=== PATIENT | female | born 1960 | race Caucasian/White ===

== ENCOUNTER → 2017-03-25 13:13 | Emergency (ER) | payer BC ==
[2017-03-25 13:23] VITALS: BP 125/73
--- NOTE | 2017-03-25 14:26 | ED ---
Abdominal Pain/Female - HPI Summary HPI Summary: 56 female presents to ED as she was instructed by Dr Villarreal. Patient states she has had abdominal pain/tightness after having surgery with a drain placed. She feels her drain is plugged, as it was once before in the past and her abdomen is full of fluid. Patient will be evaluated by Dr Villarreal. No nausea, vomiting, fever/chills or any other complaints at this time. - History of Current Complaint Chief Complaint: EDGeneral Stated Complaint: DRANGING TUBE PAIN Time Seen by Provider: 03/25/17 13:58 Hx Obtained From: Patient, Other: - Dr Villarreal Onset/Duration: Sudden Onset, Lasting Days Timing: Constant Severity Initially: Moderate Severity Currently: Severe Pain Intensity: 5 Pain Scale Used: 0-10 Numeric Location: Diffuse - lower abdomen Radiates: No Aggravating Factor(s): Nothing Alleviating Factor(s): Nothing Allergies/Adverse Reactions: Allergies Allergy/AdvReac Type Severity Reaction Status Date / Time Adhesive Tape [Paper Tape] Allergy Mild Itching Verified 03/06/17 07:03 Penicillins Allergy Unknown Verified 01/06/17 11:47 Reaction Details Tramadol Allergy Unknown Verified 03/10/17 16:43 Reaction Details Hydrocodone AdvReac See Comment Verified 01/06/17 11:47 PMH/Surg Hx/FS Hx/Imm Hx Endocrine/Hematology History: Denies: Hx Diabetes, Hx Systemic Lupus Erythematosus Cardiovascular History: Denies: Hx Congestive Heart Failure, Hx Hypertension, Hx Pacemaker/ICD Respiratory History: Denies: Hx Asthma GI History: Reports: Hx Diverticulosis, Other GI Disorders - colon ca History: Denies: Hx Dialysis, Hx Renal Disease Musculoskeletal History: Denies: Hx Arthritis, Hx Rheumatoid Arthritis Sensory History: Reports: Hx Contacts or Glasses - glasses Denies: Hx Hearing Aid Opthamlomology History: Reports: Hx Contacts or Glasses - glasses Neurological History: Reports: Hx Headaches - IN THE PAST Psychiatric History: Denies: Hx Panic Disorder - Cancer History Cancer Type, Location and Year: 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 Colon CA removal (02/11/17) Hx Anesthesia Reactions: No - Immunization History Immunizations Up to Date: Yes Infectious Disease History: No Infectious Disease History: Denies: Traveled Outside the [place] in Last 30 Days - Family History Known Family History: Positive: None - Social History Alcohol Use: None Substance Use Type: Reports: None Smoking Status (MU): Never Smoked Tobacco Review of Systems Constitutional: Negative Cardiovascular: Negative Respiratory: Negative Positive: Abdominal Pain - tightness All Other Systems Reviewed And Are Negative: Yes Physical Exam Triage Information Reviewed: Yes Vital Signs On Initial Exam: Initial Vitals Temp Pulse Resp BP Pulse Ox 99.4 F 92 22 125/73 100 03/25/17 13:20 03/25/17 13:20 03/25/17 13:20 03/25/17 13:20 03/25/17 13:20 Vital Signs Reviewed: Yes Appearance: Positive: Well-Appearing, Well-Nourished, Pain Distress - moderate, uncomfortable Skin: Positive: Warm, Skin Color Reflects Adequate Perfusion, Dry. Negative: Cold, Numb, Cyanosis @ Eyes: Positive: Conjunctiva Clear ENT: Positive: Hearing grossly normal Neck: Positive: Supple Respiratory/Lung Sounds: Positive: Clear to Auscultation, Breath Sounds Present. Negative: Rales, Rhonchi, Wheezes Cardiovascular: Positive: Normal, RRR, Pulses are Symmetrical in both Upper and Lower Extremities. Negative: Murmur, Rub Abdomen Description: Positive: Distended, Guarding, Other: - tender on palpation , lower abdomen, colostomy bag presents along with drain LLQ, no signs of infection present. Negative: Bruit, CVA Tenderness (R), CVA Tenderness (L) Bowel Sounds: Positive: Present Musculoskeletal: Positive: Normal, Strength/ROM Intact Neurological: Positive: Normal, Sensory/Motor Intact, Alert, Oriented to Person Place, Time - Anastasiia Coma Scale Coma Scale Total: 15 Diagnostics - Vital Signs Vital Signs Temp Pulse Resp BP Pulse Ox 03/25/17 13:20 99.4 F 92 22 125/73 100 - Laboratory Lab Statement: Any lab studies that have been ordered have been reviewed, and results considered in the medical decision making process. - Ultrasound No standard instances Ultrasound Interpretation: No Acute Changes - : There is a partially septated fluid collection in the abdominal wall measuring 22.5 cm in greatest dimension. This appears to correspond to the abdominal wall fluid collection seen on the March 10, 2017 CT examination. The drain does not appear to communicate directly with this fluid collection. Ultrasound Interpretation Completed By: Radiologist Abdominal Pain Fem Course/Dx - Course Course Of Treatment: Dr Villarreal evaluted and did procedure to remove drain and place a new one while in ED. Also obtained US. informed by Dr Villarreal that the excess fluid noted on US will be drained during a procedural appointment with Dr Rodgers tomorrow at 9am. No further action required. Patient informed and understands. - Diagnoses Differential Diagnosis: Positive: Other - post op complication, ileus, fluid build up Provider Diagnoses: Post-operative complication, Open abdominal incision with drainage - Provider Notifications Discussed Care Of Patient With: Dr Villarreal Instructed by Provider To: MD Will See In ED Discharge - Discharge Plan Condition: Stable Disposition: HOME Referrals: Genevieve Villarreal MD [Medical Doctor] - Herman Cortes JR, PA [Primary Care Provider] - Addy Rodgers MD [Medical Doctor] - Additional Instructions: Please follow up with Dr Rodgers tomorrow morning between 830-900am. Any new or worsening symptoms please seek medical attention.
--- NOTE | 2017-03-25 15:07 | CONSULT ---
Consult Consult: Surgery Consult Asked by ER to evaluate pt. with abdominal pain and drain for known seroma. Ms. Hunt is a 56 y.o. female who is s/p bowel resection for rectal cancer, managed at outside instititution. She initially presented a couple of weeks ago with abdominal pain and swelling and was found to have a hernia and seroma in the peristomal location. She ultimately had a JESSI drain placed to drain the seroma. It was draining a moderate amount until 2 days ago when it only drained scant material. She also feels that her abdominal pain has increased since then. She says this abdominal pain is just like the pain she had before the JESSI was placed. She denies fever and she has been having normal BMs through the stoma. Vital Signs 03/25/17 13:20 Temperature 99.4 F Pulse Rate 92 Respiratory 22 Rate Blood Pressure 125/73 (mmHg) O2 Sat by Pulse 100 Oximetry Exam shows a JESSI that has serous fluid and proteinaceous debris in the tubing. The abdomen is protruberant. There are good BS, the abd is soft, and mildly tender around the drain. I recommended replacing the JESSI drain,on the left side of the abdomen, which appears to be clogged. This was done under sterile conditions using 1% Lidocaine. The old JESSI was removed and a new one trimmed to ~5 cm was placed in the tract. THere was minimal drainage of additional fluid. She tolerated the procedure well and there was minimal EBL. A/P: F/u sono to be done to assess fluid collection. CLFoster
--- NOTE | 2017-03-25 15:59 | RAD ---
INDICATION: Evaluate abdominal wall seroma. COMPARISON: CT abdomen pelvis dated March 10, 2017 that shows both peritoneal ascites and a left of midline abdominal wall hernia allowing peritoneal fat and loops of bowel to herniate into the subcutaneous fat adjacent to a large abdominal wall fluid collection. TECHNIQUE: Real time ultrasound images of the left abdominal wall were acquired in franco scale and Doppler color flow. FINDINGS: Sonographic imaging overlying the left abdominal wall shows a partially loculated fluid collection measuring 19 x 14 x 22.5 cm. IMPRESSION: There is a partially septated fluid collection in the abdominal wall measuring 22.5 cm in greatest dimension. This appears to correspond to the abdominal wall fluid collection seen on the March 10, 2017 CT examination. The drain does not appear to communicate directly with this fluid collection.
== END | disposition home or self-care (01) ==
LOC: ED 13:13
DX: T81.89XA Other complications of procedures, not elsewhere classified, initial encounter (principal); Y83.9 Surgical procedure, unspecified as the cause of abnormal reaction of the patient, or of later complication, without mention of misadventure at the time of the procedure; Y92.9 Unspecified place or not applicable; Z93.3 Colostomy status; Z85.048 Personal history of other malignant neoplasm of rectum, rectosigmoid junction, and anus; T14.8XXA Other injury of unspecified body region, initial encounter; Z85.038 Personal history of other malignant neoplasm of large intestine
CPT/HCPCS: 76705; 99282

== ENCOUNTER 2017-04-18 02:11 | Inpatient (IN) | payer BC ==
[2017-04-18] MEDS ORDERED: Ondansetron INJ* 2 MG/ML VIAL IV ONE (02:42)
[2017-04-18] MEDS ORDERED: HYDROmorphone INJ* 2 MG/ML CARPUJECT SYRINGE IV SLOW PU ONE ×2 (02:42→04:59)
[2017-04-18] MEDS ORDERED: Acetaminophen TAB* 325 MG PO ONE (02:44)
[2017-04-18] MEDS ORDERED: Levofloxacin 750 MG IVPREMIX(* 750 MG/150 ML BAG IVPB ONE (02:47)
[2017-04-18 03:13] LABS: ABS Basophils 0.1 10^3/ul (0-0.2); ABS Eosinophils 0 10^3/ul (0-0.6); ABS Lymphocytes 0.6 10^3/ul (1.0-4.8); ABS Monocytes 0.9 10^3/ul (0-0.8); ABS Neutrophils 9.8 10^3/ul (1.5-7.7); ABS Nucleated RBC 0 10^3/ul; Eosinophil % 0.2 % (0-6); Hematocrit 30 % (35-47); Hemoglobin 9.9 g/dl (12.0-16.0); Lymphocyte % 5.7 % (25-47); Mean Corpuscular HGB Conc 33 g/dl (31-36); Mean Corpuscular Hemoglobin 25 pg (27-31); Mean Corpuscular Volume 76 fL (80-97); Mean Platelet Volume 6 um3 (7.4-10.4); Nucleated Red Blood Cells % 0; Platelet Count 495 10^3/ul (150-450); Red Blood Count 3.93 10^6/ul (4.0-5.4); Red Cell Distribution Width 17 % (10.5-15); White Blood Count 11.5 10^3/ul (3.5-10.8)
[2017-04-18] MEDS ORDERED: metroNIDAZOLE IV 500 MG/100ML* 500 MG/100 ML BAG IVPB ONE (03:20)
[2017-04-18] MEDS ORDERED: NS 0.9% 1000 ML*IV.FLUID IV ONE (03:20)
[2017-04-18 03:22] LABS: INR 1.06 (0.77-1.02)
[2017-04-18] MEDS: NS 0.9% 1000 ML* 1,000 ML IV ONE ×2 (03:26→06:55)
[2017-04-18] MEDS ORDERED: Iodixanol* (CONTRAST) 320 MG/ML 100 ML SDV IV ONE (03:30)
[2017-04-18] MEDS ORDERED: Vancomycin(*) 1,000 MG VIAL IVPB SCH (04:00)
[2017-04-18] MEDS ORDERED: Vancomycin(*) 1,250 MG IV x ONCE IVPB ONE ×2 (05:00)
[2017-04-18 05:38] LABS: Urine Appearance Cloudy; Urine Blood 2+ (Negative); Urine Color Straw; Urine Ketones Negative (Negative); Urine Protein 2+(100 mg/dL) (Negative); Urine Specific Gravity 1.003 (1.010-1.030); Urine Urobilinogen Negative (Negative)
[2017-04-18] MEDS ORDERED: NS 0.9% 250 ML* 250 ML ONE (06:36)
--- NOTE | 2017-04-18 06:53 | ED ---
José Miguel Batres Tiffany, scribed for Sukhdeep Huber on 04/18/17 at 0238 . Back Pain - HPI Summary HPI Summary: This patient is a 56 year old F presenting to [facility] accompanied by with a chief complaint of back pain since two days ago. The patient rates the pain 7/ 10 in severity. Symptoms aggravated by nothing. Symptoms alleviated by nothing. Patient reports abdominal pain. Pt stated that she had back surgery (took out part of her tailbone) on 2016. Pt also had abdominal surgery from cancer and also still has drainage tubes at this time. Pt stated that she took dilaudid 2mg at 0000. - History of Current Complaint Chief Complaint: EDBackInjuryPain Stated Complaint: BACK PAIN FOLLOWING SURGERY Time Seen by Provider: 04/18/17 02:30 Pain Intensity: 7 - Allergies/Home Medications Allergies/Adverse Reactions: Allergies Allergy/AdvReac Type Severity Reaction Status Date / Time Adhesive Tape [Paper Tape] Allergy Mild Itching Verified 03/06/17 07:03 Penicillins Allergy Unknown Verified 01/06/17 11:47 Reaction Details Tramadol Allergy Unknown Verified 03/10/17 16:43 Reaction Details Hydrocodone AdvReac See Comment Verified 01/06/17 11:47 PMH/Surg Hx/FS Hx/Imm Hx Previously Healthy: No Endocrine/Hematology History: Denies: Hx Diabetes, Hx Systemic Lupus Erythematosus Cardiovascular History: Denies: Hx Congestive Heart Failure, Hx Hypertension, Hx Pacemaker/ICD Respiratory History: Denies: Hx Asthma GI History: Reports: Hx Diverticulosis, Other GI Disorders - colon ca History: Denies: Hx Dialysis, Hx Renal Disease Musculoskeletal History: Denies: Hx Arthritis, Hx Rheumatoid Arthritis Sensory History: Reports: Hx Contacts or Glasses - glasses Denies: Hx Hearing Aid Opthamlomology History: Reports: Hx Contacts or Glasses - glasses Neurological History: Reports: Hx Headaches - IN THE PAST Psychiatric History: Denies: Hx Panic Disorder - Cancer History Cancer Type, Location and Year: 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 Colon CA removal (02/11/17) Hx Anesthesia Reactions: No Infectious Disease History: No Infectious Disease History: Denies: Traveled Outside the [place] in Last 30 Days - Family History Known Family History: Positive: None - Patient reports none - Social History Alcohol Use: None Hx Substance Use: No Substance Use Type: Reports: None Hx Tobacco Use: No Smoking Status (MU): Never Smoked Tobacco Review of Systems Positive: Abdominal Pain Positive: Other - Back pain All Other Systems Reviewed And Are Negative: Yes Physical Exam - Summary Physical Exam Summary: Appearance: Mild distress with pain Skin: warm, dry, reflects adequate perfusion Head/face: normal Eyes: EOMI, LYNETTE ENT: normal Neck: supple, non-tender Respiratory: CTA, breath sounds present Cardiovascular: RRR, pulses symmetrical Abdomen: colostomy bag on left side, pelvic drain on right side, diffuse tenderness of abdomen Bowel: present Musculoskeletal: normal, strength/ROM intact Neuro: normal, sensory motor intact, A&Ox3 Triage Information Reviewed: Yes Vital Signs On Initial Exam: Initial Vitals Temp Pulse Resp BP Pulse Ox 100.2 F 101 22 120/69 100 04/18/17 02:16 04/18/17 02:16 04/18/17 02:16 04/18/17 02:16 04/18/17 02:16 Vital Signs Reviewed: Yes - Burna Coma Scale Coma Scale Total: 15 Diagnostics - Vital Signs Vital Signs Temp Pulse Resp BP Pulse Ox 04/18/17 02:16 100.2 F 101 22 120/69 100 - Laboratory Result Diagrams: 04/18/17 02:49 04/18/17 02:49 Lab Statement: Any lab studies that have been ordered have been reviewed, and results considered in the medical decision making process. - Radiology CXR Radiology Interpretation Completed By: ED Physician - CXR is negative Back Pain Course/Dx - Course Course Of Treatment: This patient is a 56 year old F presenting to [facility] accompanied by with a chief complaint of back pain since two days ago. CXR is, per ED physician, negative. Bloodwork/UA obtained. In the ED course the patient was given Tylenol, Dilaudid, Levaquin, and Zofran. Patient is signed out at shift change, awaiting CT Abd/Pel results. - Diagnoses Provider Diagnoses: Abdominal pain Discharge - Discharge Plan Condition: Fair Disposition: OTHER Discharge Disposition Comment: Patient is signed out at shift change, awaiting CT Abd/Pel results Referrals: Herman Cortes JR PA [Primary Care Provider] - The documentation as recorded by the José Miguel lepe Tiffany accurately reflects the service I personally performed and the decisions made by , Sukhdeep Huber.
--- NOTE | 2017-04-18 08:01 | RAD ---
HISTORY: Fever COMPARISONS: None relevant available at the time of dictation VIEWS: 1: frontal portable view of the chest at 3:12 AM FINDINGS: LINES AND TUBES: None. CARDIOMEDIASTINAL SILHOUETTE: The cardiomediastinal silhouette is normal for portable technique. PLEURA: The costophrenic angles are sharp. No pleural abnormalities are noted. LUNG PARENCHYMA: The lungs are clear. ABDOMEN: The upper abdomen is clear. There is no subphrenic gas. BONES AND SOFT TISSUES: No bone or soft tissue abnormalities are noted. IMPRESSION: NO ACTIVE CARDIOPULMONARY DISEASE.
[2017-04-18] MEDS ORDERED: NS 0.9% 1000 ML* 1,000 ML IV ONE (08:37)
--- NOTE | 2017-04-18 08:49 | RAD ---
CLINICAL HISTORY: Back pain following surgery to remove a portion of the sacrum. Surgical history includes colectomy with colostomy creation for rectal cancer. Patient is recently status post peritoneal drain placement. COMPARISON: Most recent CT of the abdomen and pelvis is dated March 29, 2017 TECHNIQUE: Contrast enhanced CT examination of the abdomen and pelvis from the lung bases through the initial tuberosities. The patient received 96 mL Visipaque 320 intravenously prior to imaging.The patient received oral contrast as well prior to imaging. FINDINGS: VISUALIZED LUNG BASES: The visualized lung bases are grossly clear. There is no pleural effusion. ABDOMEN AND PELVIS: There is a subcentimeter hypoattenuating focus in the left lobe of the liver unchanged from the prior CT examination. A fluid density cyst is noted in the right lobe of the liver. There are otherwise no suspicious lesions identified in the liver. The spleen, pancreas and adrenal glands are grossly normal in appearance. There is hyperdense material in the dependent portion of the gallbladder. The gallbladder is otherwise normal size without definite pericholecystic inflammatory change. The left kidney is normal in appearance without focal mass, calcification or signs of hydronephrosis. There is mild fullness of the right renal pelvis relative to the left. This is similar to prior CT imaging. The urinary bladder measures 10.8 x 12.3 x 14 cm yielding an approximate volume of 1.5 L. The oral contrast as progressed as far as the transverse colon. The patient is status post distal colectomy. There is no pathologic dilatation of the small or remaining large bowel. At the left lower quadrant colostomy there is an abdominal wall defect measuring approximately 5.5 cm in greatest axial dimension allowing small and large bowel to herniate into the subcutaneous fat. There is no associated pathologic dilatation of the bowel or definite inflammatory change. Stool is seen up to the level of the ostomy. The patient is status post percutaneous drain placement entering the peritoneum at the right lower quadrant and traversing obliquely in the axial plane from the right lower quadrant to terminate in the posterior portion of the left lower quadrant. The previously identified 2 large cystic fluid collections in the anterior peritoneal cavity have resolved. At the right of midline there is a persistent presacral fluid collection measuring 6.2 x 7.5 cm in the axial plane and approximately 7.2 cm and greatest cephalocaudal dimension. There has been no substantial change when compared to the previous CT examinations of this presacral fluid collection. There is infiltration of the peritoneal fat surrounding the cystic collection and to a lesser extent seen in the left lower quadrant. There is no gross retroperitoneal or mesenteric lymphadenopathy. The pelvic viscera is normal in appearance. The abdominal aorta and iliac arteries are normal in course and diameter. At the L1 vertebral body there is hyperattenuating material filling the medullary cavity. Multilevel degenerative changes include loss of intervertebral disc height with vacuum disc phenomenon at L5/S1. IMPRESSION: 1. There has been interval resolution of the 2 large anterior peritoneal fluid collections in the presence of a percutaneous pigtail drain. 2. There is a right of midline presacral fluid collection measuring 7.5 cm in greatest dimension unchanged from prior CT examinations and therefore unlikely to communicate with the previously drained fluid collections. 3. Extensive chronic, degenerative and postsurgical changes described in the body the report not substantially changed when compared to prior CT examinations.
[2017-04-18] MEDS ORDERED: Acetaminophen TAB* 325 MG PO PRN (11:07)
[2017-04-18] MEDS ORDERED: Ondansetron TAB* 4 MG PO PRN (11:08)
[2017-04-18] MEDS ORDERED: Prochlorperazine TAB* 10 MG PO PRN (11:08)
[2017-04-18] MEDS ORDERED: oxyCODONE/Acetamin 5/325 MG* TAB PO PRN (11:11)
[2017-04-18] MEDS ORDERED: HYDROmorphone TAB* 2 MG ONE (13:32)
[2017-04-18] MEDS: HYDROmorphone TAB* 2 MG PO PRN ×3 (13:33→23:17)
[2017-04-18] MEDS: NS 0.9% 1000 ML* 1,000 ML IV SCH (13:34)
[2017-04-18] MEDS: Enoxaparin(*) 40 MG/0.4 ML SYR SUBCUT SCH (13:37)
[2017-04-18] MEDS: Ibuprofen TAB* 600 MG PO PRN (15:25)
--- NOTE | 2017-04-18 18:19 | ED ---
Nelson Batres Angela, scribed for Jesus Spencer MD on 04/18/17 at 0813 . Progress - Progress Note Progress Note: This pt was signed out by Dr. Huber, pending disposition, awaiting CT abdomen/ pelvis. Pt is a 56 y/o female presenting to [facility] c/o back pain since two days ago. Pt reports she had back surgery (took out part of her tailbone) on 02/11/2017. Pt will be admitted to Dr. Zee in stable condition. - Results/Orders Results/Orders: CT abdomen/pelvis, as read per radioloigst: IMPRESSION: 1. There has been interval resolution of the 2 large anterior peritoneal fluid collections in the presence of a percutaneous pigtail drain. 2. There is a right of midline presacral fluid collection measuring 7.5 cm in greatest dimension unchanged from prior CT examinations and therefore unlikely to communicate with the previously drained fluid collections. 3. Extensive chronic degenerative and postsurgical changes described in the body the report not substantially changed when compared to prior CT examinations. Dr. Spencer has reviewed this radiology report. Course/Dx - Diagnoses Provider Diagnoses: Abdominal pain - Provider Notifications Discussed Care Of Patient With: Jasper Zee Time Discussed With Above Provider: 09:30 Instructed by Provider To: Other - I discussed pt care with Dr. Zee, who has agreed to admit the pt. The documentation as recorded by the Nelson lepe Angela accurately reflects the service I personally performed and the decisions made by Tj rudolph Richard L, MD.
[2017-04-18] MEDS: LORazepam TAB(*) 0.5 MG PO SCH (20:58)
[2017-04-19] MEDS ORDERED: Levofloxacin 500 MG IVPREMIX(* 500 MG/100 ML BAG IVPB SCH (03:00)
[2017-04-19] MEDS: NS 0.9% 1000 ML* 1,000 ML IV SCH ×2 (03:07→17:18)
[2017-04-19] MEDS: HYDROmorphone TAB* 2 MG PO PRN ×3 (07:51→17:13)
[2017-04-19] MEDS ORDERED: Influenza VAC *QUAD* 2017-18* 0.5 ML SYRINGE IM ONE (09:00)
[2017-04-19] MEDS: Ibuprofen TAB* 600 MG PO PRN (09:15)
[2017-04-19] MEDS: LORazepam TAB(*) 0.5 MG PO SCH (09:16)
[2017-04-19] MEDS: Enoxaparin(*) 40 MG/0.4 ML SYR SUBCUT SCH (12:14)
[2017-04-19 15:23] VITALS: BP 104/53
--- NOTE | 2017-05-15 05:12 | DS ---
DISCHARGE SUMMARY: DATE OF ADMISSION: 04/18/17 DATE OF DISCHARGE: 04/19/17 HOSPITAL COURSE: Cyndie Gonzáles is a 56-year-old female with a history of rectal carcinoma. She has had a recent recurrence of rectal carcinoma and was status post salvage surgery with multiple compli cations including multiple percutaneous ultrasound-guided drains for seromas. She presented to the [facility] with fever and distended bladder and persistence of pelvic seromas. At the time of the admissi on, differential included urinary tract infection with obstruction, neurogenic bladder from prior carlos alonso or infected seromas. She was admitted to the hospital given IV antibiotics with Levaquin 500 mg , fluid was sent from the abdominal drains for cell count and culture. Radiology was asked to remove the current drain. A Solitario catheter was placed and left in through the time of discharge given her inability to urinate without overflow. Cultures during the admission shows, from the body fluid mult iple organisms including E. coli, enterococcus, and bacteroides. Urine culture revealed enterococcus faecalis, which was an almost monroe sensitive organism. Following her improvement in terms of symptoms and removal of her seroma drain by Dr. Rodgers, she was discharged to home on the day following admis sandeep feeling considerably improved. Medications at the time of discharge included the same medications as on admission in addition, she w as kept on antibiotics and was left with a Solitario catheter in place. Urology consult was requested fo r subsequent to the hospitalization. [id number]/[facility] #: [id number]
== END 2017-04-19 18:40 | disposition home or self-care (01) | DRG 463 ==
LOC: ED 02:11 → SSU 11:11
PROVIDERS: ADMIT Internal Medicine Hematology & Oncology; ATTEND Internal Medicine Hematology & Oncology
DX: N39.0 Urinary tract infection, site not specified (principal); C20 Malignant neoplasm of rectum; B95.2 Enterococcus as the cause of diseases classified elsewhere; B96.20 Unspecified Escherichia coli [E. coli] as the cause of diseases classified elsewhere; B96.6 Bacteroides fragilis [B. fragilis] as the cause of diseases classified elsewhere; Z88.6 Allergy status to analgesic agent; Z88.0 Allergy status to penicillin; Z88.8 Allergy status to other drugs, medicaments and biological substances; Z91.048 Other nonmedicinal substance allergy status; Z79.899 Other long term (current) drug therapy; I45.10 Unspecified right bundle-branch block; K57.90 Diverticulosis of intestine, part unspecified, without perforation or abscess without bleeding; N94.89 Other specified conditions associated with female genital organs and menstrual cycle; Z80.3 Family history of malignant neoplasm of breast; Z82.49 Family history of ischemic heart disease and other diseases of the circulatory system; Z81.2 Family history of tobacco abuse and dependence; Z93.3 Colostomy status
CPT/HCPCS: 36415; 71010; 74177; 80053; 81003; 81015; 83605; 83690; 85025; 85610; 85730; 87040; 87070; 87076; 87077; 87086; 87186; 87205; 87640; 87641; 90686; 99223; 99232; A9270-GY; J1170; J1650; J1956; J2405; J3370; J3490; Q9967

== ENCOUNTER → 2017-04-20 17:27 | Emergency (ER) | payer BC ==
[~2017-04-20 17:27] MED LIST: Iohexol 300* (CONTRAST) 10 ML SDV IV ONE; Potassium Chlor TAB* 20 MEQ TAB.ER PO ONE
--- OUTSIDE RECORDS SUMMARY | 2017-04-20 17:44 | XMS REPORT ---
:1960 External Reference #:[id number] Author Organization [facility] Address [address] [address] Phone [phone] Care Team Providers Name Role Phone Mana Oconnor PA Primary Care Physician Unavailable Payers Type Date Identification Numbers Payment Provider Subscriber Commercial Effective: Policy Number: BS Sudheer Cris Mendez Eliecer 2014 [id number] Expires: 2016 PayID: [id number] [address] [address] JESUS Rachel [address] Medigap Part B Effective: 2016 Policy Number: BS Sudheer Cris Ba [id number] PayID: [id number] [address] [address] JESUS [place] [address] Problems Description No Information Social History Type Date Description Comments Smoking Patient has never smoked Allergies, Adverse Reactions, Alerts Date Description Reaction Status Severity Comments 02/24/2017 Penicillin active 02/24/2017 Tramadol active 02/24/2017 Hydrocodone active Medications Medication Date Status Form Strength Qnty SIG Indications Ordering Provider [facility] Iron Active Tablets 325(65Fe) i by mouth Unknown /0000 mg twice a day Hydromorphone Active Tablets 2mg 1-2 tablets by Unknown HCL /0000 mouth q4-6 hours as needed pain Bactrim DS 02/24 Hx Tablets 800-160mg 28tab 1 tablet by L03.311 Matt Wheeler. /2016 s mouth twice a MD Jet - day for 14 days 03/02 Ibuprofen 00/ Hx Tablets 200mg as needed Unknown /0000 Tylenol 00 Hx Tablets 325mg 2 tablets every Unknown /0000 4 hours as needed pain Lovenox Hx Solution 100mg/ml (40MG) 1 subcutaneously - every 12 hours 03/02 as Metronidazole Hx Tablets 250mg three times a day for 7 days Vital Signs Date Vital Result Comment 03/29/2017 Weight 190.00 lb Heart Rate 72 /min BP Systolic 120 mmHg BP Diastolic 72 mmHg Respiratory Rate 16 /min Body Temperature 99.0 F 03/21/2017 Height 65 inches 5'5" Weight 190.00 lb Heart Rate 76 /min BP Systolic Recheck 124 mmHg BP Diastolic Recheck 78 mmHg Respiratory Rate 16 /min Body Temperature 99.1 F BMI (Body Mass Index) 31.6 kg/m2 03/14/2017 Height 65 inches 5'5" Weight 200.00 lb Heart Rate 76 /min BP Systolic Recheck 126 mmHg BP Diastolic Recheck 82 mmHg Respiratory Rate 16 /min Body Temperature 97.9 F BMI (Body Mass Index) 33.3 kg/m2 02/25/2017 Heart Rate 84 /min Respiratory Rate 18 /min Body Temperature 98.6 F 02/24/2017 Height 65 inches 5'5" Weight 200.00 lb Heart Rate 74 /min BP Systolic 104 mmHg BP Diastolic 60 mmHg Respiratory Rate 16 /min Body Temperature 98.1 F BMI (Body Mass Index) 33.3 kg/m2 Results Test Date Test Result H/L Range Note Wound Culture/Sensi 02/24/2017 Wound/Misc SEE RESULT BELOW 1 Culture-Gram Stain Susceptibility Anaerobic 02/24/2017 Anaerobic Millie TNP () 2 Millie Result Susceptibility Anaerobic 02/24/2017 Anaerobic Millie See Comment 3 Millie Result 1 SEE RESULT BELOW Name: CRIS BA : [address]: Matt Chaudhary MD Acct: [id number] Unit: [id number] AGE: 56 Location: [facility] Re02/24/17 SEX: F Status: REG REF SPEC: [id number] HUMA: 02/24/17 [facility] DR: Matt Chaudhary MD REQ: [id number] RECD: 02/24/17 STATUS: CAITY HICKMAN DR: Mana Andrade MD _ SOURCE: WOUND SPDESC: ORDERED: Culture Stain COMMENTS: [id number] Copy Result to: MANA OCONNOR ([id number]) Specimen Description Abd wound Procedure Result Reported Site Wound/Misc Gram Stain Final 02/25/17- 0753 ML 2+ Neutrophils 2+ Nucleated Cells 2+ Gram Positive Cocci Wound/Misc Culture Final 02/26/17- 1044 ML Organism 1 PEPTONIPHILUS ASACCHAROLYTICUS Quantity 2+ Anaerobic sensitivities are not routinely performed. Positive isolates will be saved for one week. Please call the Microbiology Laboratory if susceptibility testing is needed. * ML - MAIN LAB ([facility]) . END OF REPORT * ML=Testing performed at Main Lab DEPARTMENT OF PATHOLOGY, [address] [place] [address] Jose Reyes M.D. Director [facility] # [id number] 2 SOURCE: OTHER, SPECIFY IN COMMENTS, ANAEROCOCCUS VAGINALIS SUSCEPTIBILITY, ANAEROBIC, MILLIE Cancel reason - 03/09/2017 10:16 Notification to cancel testing received from the referring facility. Test Performed by: [address] [address] 3 SOURCE: ABDOMEN, SOURCE: ABDOMINAL WOUND, ORGANISM: PEPTONIPHILUS ASSACHAROLYTICUS SUSCEPTIBILITY, ANAEROBIC, MILLIE FINAL ANAEROCOCCUS VAGINALIS PEPTONIPHILUS sp Other organism(s) present, not further identified. Organism ANAEROCOCCUS VAGINALIS Antibiotic MILLIE (mcg/mL) Interpretation Penicillin <=0.5 S Clindamycin <=2 S Metronidazole <=8 S Organism PEPTONIPHILUS sp Antibiotic MILLIE (mcg/mL) Interpretation Penicillin <=0.5 S Clindamycin <=2 S Metronidazole <=8 S S=SUSCEPTIBLE I=INTERMEDIATE R=RESISTANT N=NONSUSCEPTIBLE D=SUSCEPTIBLE DOSE DEPENDENT Test Performed by: [address] [address] Procedures Date CPT Code Description Status 03/11/2017 73173 I&D Of Hematoma Completed 03/06/2017 89954 I&D Of Hematoma Completed 03/05/2017 18220 I&D Of Hematoma Completed 02/24/2017 29450 I&D Abscess Simple Completed Encounters Type Date Location Provider CPT E/M Dx Office Visit 03/[facility]2017 [facility] Fermin Castillo, [address] T88.8xxA 2:45p Of Pamela Ivey M.D. Z43.3 Office Visit 02/27/2017 7:17a [facility] [place] [address] L03.90 [facility]oc[facility] Hospitalists C19 L08.9 T14.8xxA Office Visit 02/24/2017 2:15p [facility] Matt Chaudhary, 15005 T81.31xA Pamela SOTO L03.311 Office Visit 01/05/2017 4:57p [facility] Pamela Zee M.D. 01377 [facility] [place] M79.601 Office Visit 08/20/2015 9:40a [facility] Pamela Zee M.D. 43193 [facility] [place] Office Visit 04/16/2015 9:00a [facility] Audit Intern Jasper Zee M.D. 08215 [facility] [place] Plan of Care 03/29/2017 - Genevieve Villarreal MDT88.8xxD Oth complications of surgical and medical care, NEC, subsFollow up:TBA
--- OUTSIDE RECORDS SUMMARY | 2017-04-20 17:44 | XMS REPORT ---
:1960 External Reference #:[id number] Author Organization [facility] Address [address] [address] Phone [phone] Care Team Providers Name Role Phone Mana Oconnor PA Primary Care Physician Unavailable Payers Type Date Identification Numbers Payment Provider Subscriber Commercial Effective: Policy Number: BS Sudheer Cris Ba 2014 [id number] Expires: 2016 PayID: [id number] [address] [address] JESUS Rachel [address] Medigap Part B Effective: 2016 Policy Number: BS Sudheer Cris Ba [id number] PayID: [id number] [address] [address] [place] [address] Problems Description No Information Social History Type [...] days Vital Signs Date Vital Result Comment 03/31/2017 Heart Rate 84 /min Respiratory Rate 18 /min Body Temperature 97.8 F 03/29/2017 Weight 190.00 lb Heart Rate 72 [...] [address]: Matt Chaudhary MD Acct: [id number] Unit: [id number] AGE: 56 Location: [facility] Re02/24/17 SEX: F Status: REG REF SPEC: [id number] HUMA: 02/24/17 [facility] DR: Matt Chaudhary MD REQ: [id number] RECD: 02/24/17 STATUS: CAITY HICKMAN DR: Mana Andrade MD _ SOURCE: WOUND SPDESC: ORDERED: Culture Stain COMMENTS: [id number] Copy Result to: MANA OCONNOR ([id number]) Specimen Description Abd wound Procedure Result Reported [...] is needed. * ML - MAIN LAB ([facility]) . END OF REPORT * ML=Testing performed at Main Lab DEPARTMENT OF PATHOLOGY, [address] [place] [address] Jose Reyes M.D. Director [facility] # [id number] 2 SOURCE: OTHER, SPECIFY IN COMMENTS, ANAEROCOCCUS VAGINALIS SUSCEPTIBILITY, ANAEROBIC, MILLIE Cancel reason - 03/09/2017 10:16 Notification to cancel testing received from the referring facility. Test Performed by: [place] [address] 3 SOURCE: ABDOMEN, SOURCE: ABDOMINAL WOUND, ORGANISM: [...] N=NONSUSCEPTIBLE D=SUSCEPTIBLE DOSE DEPENDENT Test Performed by: [address] [address] Procedures Date CPT Code Description Status 03/11/2017 45001 I&D Of Hematoma Completed 03/06/2017 42865 I&D Of Hematoma Completed 03/05/2017 40820 I&D Of Hematoma Completed 02/24/2017 96647 I&D Abscess Simple Completed Encounters Type Date Location Provider CPT E/M Dx Office Visit 03/29/2017 [facility] [place] [address] T88.8xxD 2:15p Of [employer] Office Visit 03/25/2017 [facility] [place] [address] Z43.3 7:00a Of [employer] T88.8xxA Office Visit 03/14/2017 2:45p [facility] Fermin Castillo, 495[address] T88.8xxA Of [employer] Announ[facility] [place] Z43.3 Office Visit 02/27/2017 7:17a [facility] [place] [address] L03.90 Assoc, Hospitalists C19 L08.9 T14.8xxA Office Visit 02/24/2017 2:15p [facility] Matt Chaudhary, 45762 T81.31xA Pamela SOTO L03.311 Office Visit 01/05/2017 4:57p [facility] Pamela Zee M.D. 76129 [facility] [place] M79.601 Office Visit 08/20/2015 9:40a [facility] Pamela Zee M.D. 74578 [facility] [place] Office Visit 04/16/2015 9:00a [facility] Pamela Zee M.D. 16559 [facility] [place] Plan of Care No Information Available
--- OUTSIDE RECORDS SUMMARY | 2017-04-20 17:44 | XMS REPORT ---
:1960 External Reference #:[id number] Author Organization [facility] Address [address] [address] Phone [phone] Care Team Providers Name Role Phone Mana Oconnor PA Primary Care Physician Unavailable Payers Type Date Identification Numbers Payment Provider Subscriber Commercial Effective: Policy Number: BS Sudheer Cris Mendez Eliecer 2014 [id number] Expires: 2016 PayID: [id number] [address] [address] [place] [address] Medigap Part B Effective: 2016 Policy Number: BS Sudheer Cris Ba [id number] PayID: [id number] [address] [address] [place] [address] Problems Description No Information Social History Type [...] [address]: Matt Chaudhary MD Acct: [id number] Unit: [id number] AGE: 56 Location: [facility] Re02/24/17 SEX: F Status: REG REF SPEC: [id number] HUMA: 02/24/17 [facility] DR: Matt Chaudhary MD REQ: [id number] RECD: 02/24/17 STATUS: CAITY HICKMAN DR: Mana Andrade MD _ SOURCE: WOUND SPDESC: ORDERED: Culture Stain COMMENTS: [id number] Copy Result to: MANA OCONNOR ([id number]) Specimen Description Abd wound Procedure Result Reported [...] performed at Main Lab DEPARTMENT OF PATHOLOGY, [address] [place] [address] Jose Reyes M.D. Director [facility] # [id number] 2 SOURCE: OTHER, SPECIFY IN COMMENTS, ANAEROCOCCUS VAGINALIS SUSCEPTIBILITY, ANAEROBIC, MILLIE Cancel reason - 03/09/2017 10:16 Notification to cancel testing received from the referring facility. Test Performed by: [address] [address] 3 SOURCE: ABDOMEN, SOURCE: ABDOMINAL WOUND, ORGANISM: [...] N=NONSUSCEPTIBLE D=SUSCEPTIBLE DOSE DEPENDENT Test Performed by: [address] [address] Procedures Date CPT Code Description Status 03/11/2017 92778 I&D Of Hematoma Completed 03/06/2017 18866 I&D Of Hematoma Completed 03/05/2017 07557 I&D Of Hematoma Completed 02/24/2017 35249 I&D Abscess Simple Completed Encounters Type Date Location Provider CPT E/M Dx Office Visit 03/14/2017 [facility] Ferm[facility] Castillo, 314[address] T88.8xxA 2:45p Of Pamela Ivey M.D. Z43.3 Office Visit 02/27/2017 7:17a [facility] [place] [address] L03.90 Assoc, Hospitalists C19 L08.9 T14.8xxA Office Visit 02/24/2017 2:15p [facility] Matt Chaudhary, [address] T81.31xA Pamela SOTO L03.311 Office Visit 01/05/2017 4:57p [facility] Pamela Zee M.D. 07342 [facility] [place] M79.601 Office Visit 08/20/2015 9:40a [facility] Pamela Zee M.D. 91392 [facility] [place] Office Visit 04/16/2015 9:00a [facility] Account Specialist Jasper Zee M.D. 13681 [facility] [place] Plan of Care Future Appointment(s):03/30/2017 5:09 pm - Jasper Zee M.D. at [facility] [place]
[2017-04-20 18:55] LABS: Hematocrit 27 % (35-47); Hemoglobin 8.5 g/dl (12.0-16.0); Mean Corpuscular HGB Conc 32 g/dl (31-36); Mean Corpuscular Hemoglobin 25 pg (27-31); Mean Corpuscular Volume 78 fL (80-97); Mean Platelet Volume 7 um3 (7.4-10.4); Red Blood Count 3.45 10^6/ul (4.0-5.4); Red Cell Distribution Width 17 % (10.5-15); White Blood Count 7.7 10^3/ul (3.5-10.8)
[2017-04-20 19:10] LABS: Albumin 3.3 g/dL (3.2-5.2); BUN/Creatinine Ratio 10.8 (8-20); C Reactive Protein 93.84 mg/L (< 5.00); Calcium 8.9 mg/dL (8.6-10.3); EGFR African American 103.7 (>60); EGFR Non-African American 80.6 (>60); Globulin 3.2 g/dL (2-4); Magnesium 1.9 mg/dL (1.9-2.7); Total Bilirubin 0.7 mg/dL (0.2-1.0); Total Protein 6.5 g/dL (6.4-8.9)
[2017-04-20 20:00] LABS: Urine Bacteria Absent (Absent); Urine Bilirubin Negative (Negative); Urine Glucose Negative (Negative); Urine Nitrite Negative (Negative)
--- NOTE | 2017-04-20 21:42 | RAD ---
INDICATION: Abdominal pain. Evaluate for abscess COMPARISON: CT abdomen and pelvis April 18, 2017 TECHNIQUE: Axial source images were obtained from the hemidiaphragms to the symphysis pubis following administration of oral and intravenous contrast. 100 mL Omnipaque 300 was utilized. Coronal and sagittal reconstructed images were acquired. Lung bases: The lung bases are clear. Liver: The liver is normal in size. There were several centimeter and smaller hepatic hypodensities which are likely cysts or hemangiomas. There is no ductal dilatation. Gallbladder: There are tiny gallstones or gravel in the gallbladder. There is no evidence of wall thickening or pericholecystic fluid. Spleen: The spleen is normal in size. There are no masses. Pancreas: There is no focal pancreatic mass or ductal dilatation. Adrenal glands: There is no evidence of adrenal mass. Kidneys: The kidneys are normal in size and position. There are prompt nephrograms and there is prompt excretion bilaterally. There is persistent right-sided hydronephrosis and hydroureter. There are no renal parenchymal masses. There is no evidence of nephrolithiasis. Adenopathy: There is no evidence of adenopathy by size criteria. Fluid collections: There is a fluid collection in the right presacral space measuring 6.7 x 4.9 cm. This collection may be minimally smaller. There is no additional significant localized fluid collection. The pigtail catheter which formerly drained a fluid collection which was to the left and anterior in location has been removed and there is no significant residual collection. There is persistent induration and subcutaneous edema in the anterior subcutaneous soft tissues suggesting cellulitic response. Vessels:There are no significant atherosclerotic changes involving the aorta. There is no focal aneurysm. The iliac vessels are normal in caliber. The IVC appears normal. GI tract: The GI tract is unchanged with evidence of left colectomy. There is a stoma left lower quadrant with parastomal herniation, unchanged. Pelvic organs: The uterus and adnexa appear normal Bladder: There are no bladder masses. Abdominal and pelvic soft tissues: The extraperitoneal abdominal and pelvic soft tissues appear normal.. Osseous structures: There are no acute osseous findings. Other: None IMPRESSION: 1. Stable low-density hepatic lesions likely cysts or hemangiomas. 2. Tiny gallstones or gallbladder gravel, unchanged. 3. Persistent right-sided hydronephrosis and hydroureter, unchanged. 4. Partial left colectomy with stoma formation and parastomal herniation, unchanged. 5. Interval removal of the pigtail drainage catheter which formerly drained a left pelvic collection. 6. Persistent localized fluid collection in the presacral space on the right. This appears slightly smaller. 7. Increased skin induration subcutaneous edema in the anterior lower pelvis suggestive of cellulitic response.
--- NOTE | 2017-04-20 22:42 | ED ---
Stephan Batres Gabriel, scribed for Liz Wen MD on 04/20/17 at 1850 . Complex/Multi-Sys Presentation - HPI Summary HPI Summary: This patient is a 56 year old F presenting to [facility] accompanied by with a chief complaint of a possible "fluid pocket" since earlier today. The patient rates the pain 5/10 in severity and located primarily in the LLQ. Patient reports bilateral flank pain, distended ABD, urinary incontinence, and tailbone pain. She was discharged last night from the hospital with a "massive" bladder infection and she had a urology appointment with Dr. Martinez today. She has used the bathroom, urinating twice without a catheter since it was pulled today. Patient has a history of metastatic colon cancer and has had multiple "fluid pockets" that have been drained frequently. Last time she felt distended there were 5 liters of fluid drained. Pt took hydromorphone at 1730. She also had part of her tailbone removed during cancer treatment. Pt denies fever, vomiting. Pt had a CT done 2 days ago. 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 colostomy in place, Other - bilateral flank pain, distended ABD, urinary incontinence, and tailbone pain Related History: Recent Hospitalization - just DC'd last pm - Allergies/Home Medications Allergies/Adverse Reactions: Allergies Allergy/AdvReac Type Severity Reaction Status Date / Time Adhesive Tape [Paper Tape] Allergy Mild Itching Verified 03/06/17 07:03 Penicillins Allergy Unknown Verified 01/06/17 11:47 Reaction Details Tramadol Allergy Unknown Verified 03/10/17 16:43 Reaction Details Hydrocodone AdvReac See Comment Verified 01/06/17 11:47 PMH/Surg Hx/FS Hx/Imm Hx Previously Healthy: No Endocrine/Hematology History: Denies: Hx Diabetes, Hx Systemic Lupus Erythematosus Cardiovascular History: Denies: Hx Congestive Heart Failure, Hx Hypertension, Hx Pacemaker/ICD Respiratory History: Denies: Hx Asthma GI History: Reports: Hx Diverticulosis, Other GI Disorders - colon ca with colostomy History: Denies: Hx Dialysis, Hx Renal Disease Musculoskeletal History: Reports: Hx Back Problems - piece of tailbone removed Denies: Hx Arthritis, Hx Rheumatoid Arthritis Sensory History: Reports: Hx Contacts or Glasses Denies: Hx Hearing Aid Opthamlomology History: Reports: Hx Contacts or Glasses Neurological History: Reports: Hx Headaches - IN THE PAST Psychiatric History: Denies: Hx Panic Disorder - Cancer History Cancer Type, Location and Year: MALIGNANT NEOPLASM OF RECTUM. REOCURRING COLON CANCER- surgically removed, colostomy bag, drain Hx Chemotherapy: Yes - October 2016 Hx Radiation Therapy: Yes - November 2016 - Surgical History Surgery Procedure, Year, and Place: tubal ligation 33 yrs ago. carputunal 30 yrs ago. Colectomy w/colostomy (2014). Colon CA removal (02/11/17) Hx Anesthesia Reactions: No Infectious Disease History: No Infectious Disease History: Denies: Traveled Outside the [place] in Last 30 Days - Family History Known Family History: Positive: None - Patient reports none - Social History Lives: With Family Alcohol Use: None Hx Substance Use: No Substance Use Type: Reports: None Hx Tobacco Use: No Smoking Status (MU): Never Smoked Tobacco Review of Systems Positive: Fatigue Cardiovascular: Negative Respiratory: Negative Positive: Other - distended ABD Positive: incontinence Positive: Other - reports bilateral flank pain and tailbone pain Skin: Negative Neurological: Negative Psychological: Normal All Other Systems Reviewed And Are Negative: Yes Physical Exam - Summary Physical Exam Summary: Appearance: Well-appearing, no pain distress, Well-nourished Skin: Warm, color reflects adequate perfusion Head: Normal Head/Face Eyes: Conjunctiva clear ENT: Normal appearance Neck: Supple Respiratory: Lungs clear, Normal breath sounds, no respiratory distress Cardio: RRR, No murmur, pulses normal, brisk capillary refill Abdomen: soft. Colostomy in LLQ with LLQ tenderness. 2 week old drain site in RLQ is bandaged and dressing is intact and dry. Bowel sounds: present Musculoskeletal: Strength Intact/ ROM intact. There is bilateral flank tenderness Neuro: Alert, muscle tone normal,facial symmetry, speech normal, sensory/motor intact Triage Information Reviewed: Yes Vital Signs On Initial Exam: Initial Vitals Temp Pulse Resp BP Pulse Ox 97.3 F 74 16 97/67 100 04/20/17 17:32 04/20/17 17:32 04/20/17 17:32 04/20/17 17:32 04/20/17 17:32 Vital Signs Reviewed: Yes Diagnostics - Vital Signs Vital Signs Temp Pulse Resp BP Pulse Ox 04/20/17 17:32 97.3 F 74 16 97/67 100 - Laboratory Lab Results: Lab Results 04/20/17 04/20/17 04/20/17 Range/Units 18:42 18:42 18:42 WBC 7.7 (3.5-10.8) 10^3/ul RBC 3.45 L (4.0-5.4) 10^6/ul Hgb 8.5 L (12.0-16.0) g/dl Hct 27 L (35-47) % MCV 78 L (80-97) fL MCH 25 L (27-31) pg MCHC 32 (31-36) g/dl RDW 17 H (10.5-15) % Plt Count 448 (150-450) 10^3/ul MPV 7 L (7.4-10.4) um3 Neut % (Auto) 77.8 (38-83) % Lymph % (Auto) 9.1 L (25-47) % Newton % (Auto) 9.9 H (1-9) % Eos % (Auto) 2.6 (0-6) % Baso % (Auto) 0.6 (0-2) % Absolute Neuts (auto) 6.0 (1.5-7.7) 10^3/ul Absolute Lymphs (auto) 0.7 L (1.0-4.8) 10^3/ul Absolute Monos (auto) 0.8 (0-0.8) 10^3/ul Absolute Eos (auto) 0.2 (0-0.6) 10^3/ul Absolute Basos (auto) 0 (0-0.2) 10^3/ul Absolute Nucleated RBC 0 10^3/ul Nucleated RBC % 0 INR (Anticoag Therapy) (0.77-1.02) APTT (26.0-36.3) seconds Sodium 131 L (133-145) mmol/L Potassium 3.0 L (3.5-5.0) mmol/L Chloride 99 L (101-111) mmol/L Carbon Dioxide 25 (22-32) mmol/L Anion Gap 7 (2-11) mmol/L BUN 8 (6-24) mg/dL Creatinine 0.74 (0.51-0.95) mg/dL Est GFR ( Amer) 103.7 (>60) Est GFR (Non-Af Amer) 80.6 (>60) BUN/Creatinine Ratio 10.8 (8-20) Glucose 99 (70-100) mg/dL Lactic Acid 0.7 (0.5-2.0) mmol/L Calcium 8.9 (8.6-10.3) mg/dL Magnesium 1.9 (1.9-2.7) mg/dL Total Bilirubin 0.70 (0.2-1.0) mg/dL AST 11 L (13-39) U/L ALT 7 (7-52) U/L Alkaline Phosphatase 90 (34-104) U/L Total Creatine Kinase 56 (10-223) U/L Troponin I 0.00 (<0.04) ng/mL C-Reactive Protein 93.84 H (< 5.00) mg/L Total Protein 6.5 (6.4-8.9) g/dL Albumin 3.3 (3.2-5.2) g/dL Globulin 3.2 (2-4) g/dL Albumin/Globulin Ratio 1.0 (1-3) Amylase 21 L (29-103) U/L Lipase 14 (11.0-82.0) U/L Urine Color Urine Appearance Urine pH (5-9) Ur Specific Midland (1.010-1.030) Urine Protein (Negative) Urine Ketones (Negative) Urine Blood (Negative) Urine Nitrate (Negative) Urine Bilirubin (Negative) Urine Urobilinogen (Negative) Ur Leukocyte Esterase (Negative) Urine WBC (Auto) (Absent) Urine RBC (Auto) (Absent) Urine Bacteria (Absent) Urine Glucose (Negative) 04/20/17 04/20/17 Range/Units 18:42 19:39 WBC (3.5-10.8) 10^3/ul RBC (4.0-5.4) 10^6/ul Hgb (12.0-16.0) g/dl Hct (35-47) % MCV (80-97) fL MCH (27-31) pg MCHC (31-36) g/dl RDW (10.5-15) % Plt Count (150-450) 10^3/ul MPV (7.4-10.4) um3 Neut % (Auto) (38-83) % Lymph % (Auto) (25-47) % Newton % (Auto) (1-9) % Eos % (Auto) (0-6) % Baso % (Auto) (0-2) % Absolute Neuts (auto) (1.5-7.7) 10^3/ul Absolute Lymphs (auto) (1.0-4.8) 10^3/ul Absolute Monos (auto) (0-0.8) 10^3/ul Absolute Eos (auto) (0-0.6) 10^3/ul Absolute Basos (auto) (0-0.2) 10^3/ul Absolute Nucleated RBC 10^3/ul Nucleated RBC % INR (Anticoag Therapy) 1.04 H (0.77-1.02) APTT 34.2 (26.0-36.3) seconds Sodium (133-145) mmol/L Potassium (3.5-5.0) mmol/L Chloride (101-111) mmol/L Carbon Dioxide (22-32) mmol/L Anion Gap (2-11) mmol/L BUN (6-24) mg/dL Creatinine (0.51-0.95) mg/dL Est GFR ( Amer) (>60) Est GFR (Non-Af Amer) (>60) BUN/Creatinine Ratio (8-20) Glucose (70-100) mg/dL Lactic Acid (0.5-2.0) mmol/L Calcium (8.6-10.3) mg/dL Magnesium (1.9-2.7) mg/dL Total Bilirubin (0.2-1.0) mg/dL AST (13-39) U/L ALT (7-52) U/L Alkaline Phosphatase (34-104) U/L Total Creatine Kinase (10-223) U/L Troponin I (<0.04) ng/mL C-Reactive Protein (< 5.00) mg/L Total Protein (6.4-8.9) g/dL Albumin (3.2-5.2) g/dL Globulin (2-4) g/dL Albumin/Globulin Ratio (1-3) Amylase (29-103) U/L Lipase (11.0-82.0) U/L Urine Color Straw Urine Appearance Clear Urine pH 6.0 (5-9) Ur Specific Midland 1.001 L (1.010-1.030) Urine Protein Negative (Negative) Urine Ketones Negative (Negative) Urine Blood 2+ H (Negative) Urine Nitrate Negative (Negative) Urine Bilirubin Negative (Negative) Urine Urobilinogen Negative (Negative) Ur Leukocyte Esterase 3+ H (Negative) Urine WBC (Auto) Trace(0-5/hpf) (Absent) Urine RBC (Auto) Absent (Absent) Urine Bacteria Absent (Absent) Urine Glucose Negative (Negative) Result Diagrams: 04/20/17 18:42 04/20/17 18:42 Lab Statement: Any lab studies that have been ordered have been reviewed, and results considered in the medical decision making process. Complex Multi-Symp Course/Dx Course Of Treatment: labs and repeat CT ordered. Care to Dr. Huber with the above pending. - Diagnoses Differential Diagnoses/HQI/PQRI: Metabolic Abnormality, Urinary Tract Infection , Other - abscess Provider Diagnoses: Abdominal pain in female Discharge - Discharge Plan Condition: Stable Disposition: OTHER Discharge Disposition Comment: care to Dr. Huber at change of shift at 1900 Referrals: Herman Cortes JR, PA [Primary Care Provider] - Surinder SOTO,Millie Linn [Medical Doctor] - The documentation as recorded by the Stephan lepe Gabriel accurately reflects the service I personally performed and the decisions made by , Liz Wen MD.
--- NOTE | 2017-04-20 23:19 | PN ---
Arleth Batres Emily, scribed for Sukhdeep Huber on 04/20/17 at 2318 . Progress Note - Progress Note Date of Service: 04/20/17 Note: SIGN-OUT FROM DR. ESCOBAR UPON SHIFT CHANGE PENDING CT RESULTS Diagnostics: CT: CT abdomen/pelvis reveals, per radiologist, 1. Stable low-density hepatic lesions likely cysts or hemangiomas. 2. Tiny gallstones or gallbladder gravel, unchanged. 3. Persistent right-sided hydronephrosis and hydroureter, unchanged. 4. Partial left colectomy with stoma formation and parastomal herniation, unchanged. 5. Interval removal of the pigtail drainage catheter which formerly drained a left pelvic collection. 6. Persistent localized fluid collection in the presacral space on the right. This appears slightly smaller. 7. Increased skin induration subcutaneous edema in the anterior lower pelvis suggestive of cellulitic response. ED physician has reviewed this radiology report. A&P: Consult with Dr. Hoang (urology) at 2308. He recommends no urological admittance. Pt is stable for discharge home with an appointment scheduled with Dr. Martinez tomorrow. Dx: Abdominal pain Dispo: Pt is stable for discharge home with follow-up from PCP and Dr. Martinez. The documentation as recorded by the martínibArleth saprks Emily accurately reflects the service I personally performed and the decisions made by Cecile rudolph Emmanuel.
[2017-04-20 23:47] VITALS: BP 106/71
== END | disposition home or self-care (01) ==
LOC: ED 17:27
DX: R10.32 Left lower quadrant pain (principal); Z85.048 Personal history of other malignant neoplasm of rectum, rectosigmoid junction, and anus; Z93.3 Colostomy status; Z88.0 Allergy status to penicillin
CPT/HCPCS: 36415; 74177; 80053; 81003; 81015; 82150; 82550; 83605; 83690; 83735; 84484; 85025; 85610; 85730; 86140; 87086; 96374; 99284; A9270-GY; Q9967

== ENCOUNTER 2017-06-03 14:32 | Day surgery (SDC) | payer BC ==
--- NOTE | 2017-06-02 17:06 | HP ---
CC: Dr. Jasper Zee * DATE OF ADMISSION: 06/03/2017. AGE: 56-year-old female. ADMITTING DIAGNOSES: 1. Severe right hydronephrosis. 2. History of colorectal cancer. PLANNED PROCEDURE: Right retrograde, right stent insertion, possible right ureteroscopy. SURGEON: Dr. Geovanni Martinez. HISTORY OF PRESENT ILLNESS: Cyndie Gonzáles is a 56-year-old lady with a history of rectal carcinoma originally diagnosed in 2014 with recurrence in the coccyx and in the pelvis who had major debulking surgery done in January of 2017. She subsequently had what appears to have been a postoperative seroma and had percutaneous drainage. She had a CT scan done in April which had shown mild right hydronephrosis, but a follow-up CT scan done two days ago showed severe right hydronephrosis with air fluid collections in the posterior pelvis on the right side and she is now being brought in for an attempt at right stent insertion. In addition, she has had some foul smelling drainage and is not sure whether this is urinary or vaginal and possibly may represent some sort of a fistula formation. PAST MEDICAL HISTORY: Significant for colorectal cancer with recurrence. MEDICATIONS ON ADMISSION: 1. Hydromorphone 2 mg prn. 2. Fentanyl patch 25 mcg every 3 days. 3. Ibuprofen prn. 4. Lorazepam 0.5 mg prn. 5. Detrol 2 mg daily. ALLERGIES: HYDROCODONE, TRAMADOL, PENICILLIN, AND ADHESIVE TAPE. PHYSICAL EXAMINATION GENERAL: Pleasant, uncomfortable-appearing, middle-aged lady. VITAL SIGNS: Blood pressure 120/74, pulse 76 per minute, oxygen saturation 96 percent on room air. CARDIOVASCULAR: Regular rate and rhythm, S1, S2. LUNGS: Clear bilaterally. ABDOMEN: Soft with a left lower quadrant colostomy in place. There is no flank tenderness. She has severe pain in the coccyx. IMPRESSION: [id number]-old lady with severe right hydronephrosis, pelvic fluid collection and a history of major debulking surgery recently. PLAN: Right retrograde, right stent insertion, possible ureteroscopy. [id number]/[facility] #: [id number] MTDD
[~2017-06-03 14:32] MED LIST changes: +Buffered Lidocaine 0.9% SYRIN* 5 ML/SYR SYRINGE INTRADERM ONE; +Famotidine IV* 10 MG/ML 2 ML (20 mg) IV ONE; -Iohexol 300* (CONTRAST) 10 ML SDV IV ONE; -Potassium Chlor TAB* 20 MEQ TAB.ER PO ONE; +Sodium Citrate/Citric Acid* 15 ML UDC PO ONE
[2017-06-03] MEDS ORDERED: Famotidine IV* 10 MG/ML 2 ML (20 mg) ONE (14:59)
[2017-06-03] MEDS ORDERED: Sodium Citrate/Citric Acid* 15 ML UDC ONE (14:59)
[2017-06-03] MEDS ORDERED: Levofloxacin 500 MG IVPREMIX(* 500 MG/100 ML BAG IVPB ONE (14:59)
[2017-06-03] MEDS ORDERED: Scopolamine 1.5 mg* PATCH TRANSDERM PRN (15:44)
[2017-06-03] MEDS ORDERED: Ondansetron INJ* 2 MG/ML VIAL IV PRN (15:44)
[2017-06-03] MEDS ORDERED: fentaNYL* 50 MCG/ML 2 ML VIAL (100 MCG VIAL) IV PRN (15:44)
[2017-06-03] MEDS ORDERED: Naloxone* 0.4 MG/ML 1 ML VIAL IV PRN (15:44)
[2017-06-03] MEDS ORDERED: Iohexol 180 (CONTRAST) 10 ML SDV IV ONE ×2 (15:49→17:20)
[2017-06-03] MEDS ORDERED: fentaNYL* 50 MCG/ML 2 ML VIAL (100 MCG VIAL) ONE (15:58)
[2017-06-03] MEDS ORDERED: Midazolam* 1 MG/ML 2 ML VIAL (2 MG) ONE (15:58)
[2017-06-03] MEDS ORDERED: Rocuronium* 10 MG/ML VIAL ONE (16:31)
[2017-06-03] MEDS ORDERED: HYDROmorphone INJ* 1 MG/ML CARPUJECT SYRINGE ONE (16:51)
[2017-06-03] MEDS ORDERED: Ondansetron INJ* 2 MG/ML VIAL ONE (17:01)
[2017-06-03] MEDS ORDERED: Propofol* 10 MG/ML 20 ML BTL IV PUSH ONE (17:01)
[2017-06-03] MEDS ORDERED: Lidocaine 2% PF * 5 ML VIAL ONE (17:01)
[2017-06-03] MEDS ORDERED: Glycopyrrolate IV* 0.2 MG/ML 1 ML VIAL ONE (17:07)
[2017-06-03] MEDS ORDERED: Neostigmine Methylsulfate* 2 MG/2 ML SYRINGE ONE (17:07)
[2017-06-03] MEDS ORDERED: Acetaminophen IV 1GM/100ML * 1,000 MG/100 ML VIAL IVPB ONE (17:20)
[2017-06-03] MEDS ORDERED: Acetaminophen IV 1GM/100ML * 100 ML ONE (18:04)
--- NOTE | 2017-06-03 18:10 | RAD ---
INDICATION: Right ureteral stent insertion. COMPARISON: Comparison is made with a prior CT of the abdomen and pelvis from June 01, 2017. TECHNIQUE: 43 seconds of intermittent fluoroscopic guidance were provided and 6 spot films of the abdomen were centered on the right side. FINDINGS: The films demonstrate balloon dilatation of the distal right ureter over a guidewire. There is a collection of contrast adjacent to the distal right ureter. There is partial opacification of the right renal collecting system which is distended consistent with severe hydronephrosis. Subsequently there is placement of a double-J stent catheter on the right side. IMPRESSION: INTRAOPERATIVE CONTROL FILMS. CPT II Codes: 6045F
[2017-06-03] MEDS ORDERED: HYDROmorphone INJ* 2 MG/ML CARPUJECT SYRINGE ONE (18:28)
[2017-06-03] MEDS: HYDROmorphone INJ* 1 MG/ML CARPUJECT SYRINGE IV PRN ×2 (18:30→18:42)
[2017-06-03] MEDS ORDERED: Gentamicin ADULT (*) 40 MG/ML VIAL ONE (18:47)
[2017-06-03 18:55] VITALS: BP 99/60
--- NOTE | 2017-06-04 02:17 | OP ---
CC: Dr. Jasper Zee; MARSHA Mullins; Dr. Geovanni Martinez OPERATIVE REPORT: DATE OF OPERATION: 06/03/17 DATE OF : 56 SURGEON: Geovanni Martinez MD ANESTHESIOLOGIST: Dr. Phelan. ANESTHESIA: General. PRE-OP DIAGNOSES: 1. Right hydronephrosis. 2. Probable stricture, right ureter. POST-OP DIAGNOSES: 1. Right hydronephrosis. 2. Probable stricture, right ureter. OPERATIVE PROCEDURE: Cystoscopy, right retrograde pyelogram, right ureteral balloon dilatation, righ t ureteroscopy, and right stent insertion. COMPLICATIONS: None. STENT USED: An 8.5-Somali 28 cm silicone stent, right ureter. OPERATIVE FINDINGS: 1. Normal-appearing bladder. 2. Complete obstruction, right ureter with severe stricture adjacent to the ureter and possible fist ulous communication from ureter. POSTOPERATIVE CONDITION: Stable. INDICATIONS: Cyndie Gonzáles is a 56-year-old lady who has advanced colorectal cancer. She was recen tly noted to have severe right hydronephrosis. This was a change from a CT scan done about a month a go, which had shown mild right hydronephrosis. She is status post debulking surgery for recurrent co lorectal carcinoma. DESCRIPTION OF PROCEDURE: After induction of general anesthesia, the patient was placed in dorsal li thotomy position. Sequential compression devices were in place and functioning. Initial cystoscopy revealed a normal-appearing bladder with some distortion noted just lateral to the right orifice from extrinsic pressure. There was no evidence of any fistulous communication to the bladder. Both the right and left ureteral orifices were normal in position and configuration. Clear efflux was noted f rom the left orifice. There was no efflux noted from the right suggesting a high-grade obstruction. A guidewire was introduced into the right orifice just about couple of centimeters above the orifice. There was a near total occlusion of the lumen and the wire would not advance in spite of all the us ual manipulations to try and make a hydrophilic wire advance proximally. I next placed the ureterosc ope under direct vision into the right ureter and after some initial manipulation, was finally able t o get a wire to go up into the proximal collecting system. However, the stricture was so occlusive t hat a 6-Somali open-ended would not go up over the wire and at this point, I decided to use a balloon dilator to dilate the occluded area and hopefully be able to advance an open-ended catheter and then a stent. Balloon dilatation was carried out. When I had initially injected contrast, it looked lik e there was a large area of pooling of contrast around the right ureter suggesting possible fistulous communication from the ureter possibly related to the pelvic fluid collection or abscess that she rucker s. Balloon dilatation was successfully carried out and once the balloon dilatation had been complete d, I could easily then advance an 8-Somali open-ended catheter into the right renal pelvis where inje ction of contrast confirmed proper placement. Next, an 8.5-Somali 28 cm silicone stent was then intr oduced and positioned under fluoroscopy with good proximal and distal positioning obtained. A Solitario catheter was placed for temporary bladder drainage. She will need close monitoring as it is possible that the ureter may get obstructed in the near future even with the stent in place and she may certai nly require repeat balloon dilatation and a stent change in the course of the next 3 to 4 weeks. The patient tolerated the procedure satisfactorily and was transferred back to the recovery area in stab condition. [id number]/[facility] #: [id number]
[2017-06-06] MEDS ORDERED: Scopolamine PATCH Remove* 1 NOTE MISC PATCH OFF ONE (15:45)
== END 2017-06-03 19:30 | disposition home or self-care (01) ==
LOC: OR 14:32
PROVIDERS: ATTEND Urology
DX: N13.1 Hydronephrosis with ureteral stricture, not elsewhere classified (principal); C19 Malignant neoplasm of rectosigmoid junction; C79.51 Secondary malignant neoplasm of bone; Z93.3 Colostomy status; D64.9 Anemia, unspecified; D47.3 Essential (hemorrhagic) thrombocythemia
CPT/HCPCS: 74420; A9270-GY; C1876; J1170; J1580; J1956; J2250; J2405; J2704; J3010

== ENCOUNTER 2017-10-06 07:30 | Inpatient (IN) | payer BC, OTHER ==
[2017-10-06] MEDS ORDERED: HYDROmorphone INJ* 2 MG/ML CARPUJECT SYRINGE IV SLOW PU ONE ×2 (07:47→12:09)
[2017-10-06] MEDS ORDERED: NS 0.9% 1000 ML* 1,000 ML IV ONE (07:56)
[2017-10-06 08:42] LABS: EGFR Non-African American 84.6 (>60)
[2017-10-06 08:43] LABS: INR 1.05 (0.77-1.02)
[2017-10-06 08:46] LABS: ABS Basophils 0 10^3/ul (0-0.2); ABS Eosinophils 0.2 10^3/ul (0-0.6); ABS Lymphocytes 1.1 10^3/ul (1.0-4.8); ABS Monocytes 0.8 10^3/ul (0-0.8); ABS Neutrophils 6.7 10^3/ul (1.5-7.7); ABS Nucleated RBC 0 10^3/ul; Eosinophil % 1.7 % (0-6); Hematocrit 34 % (35-47); Hemoglobin 11.2 g/dl (12.0-16.0); Lymphocyte % 12.6 % (25-47); Mean Corpuscular HGB Conc 33 g/dl (31-36); Mean Corpuscular Hemoglobin 27 pg (27-31); Mean Corpuscular Volume 81 fL (80-97); Mean Platelet Volume 7.1 um3 (7.4-10.4); Nucleated Red Blood Cells % 0; Platelet Count 303 10^3/ul (150-450); Red Blood Count 4.16 10^6/ul (4.0-5.4); Red Cell Distribution Width 23 % (10.5-15); White Blood Count 8.7 10^3/ul (3.5-10.8)
[2017-10-06] MEDS ORDERED: Iohexol 300* (CONTRAST) 10 ML SDV IV ONE (09:18)
--- NOTE | 2017-10-06 09:40 | RAD ---
CLINICAL HISTORY: Pelvic pain, history of recurrent abscess, history of rectal adenocarcinoma COMPARISON: August 15, 2017 TECHNIQUE: Multiple contiguous axial CT scans were obtained of the pelvis after the administration of intravenous contrast. Coronal and sagittal multiplanar reformations are submitted for review. Oral contrast was not administered. FINDINGS: SMALL BOWEL AND MESENTERY: The small bowel is normal in contour, course, and caliber. There is no obstruction or dilatation. COLON: There is a colostomy. Diverticula are noted of the distal colon. BLADDER: A right ureteral stent is noted. PELVIC ORGANS: The pelvic organs are not visualized. AORTA: The aorta is normal. IVC: Unremarkable LYMPH NODES: There is no lymphadenopathy by size criteria. ABDOMINAL WALL: There is a left-sided colostomy with a large parastomal hernia containing small bowel. BONES AND SOFT TISSUES: There is a loculated fluid collection along the sacral spinous interval on the right, with a gas fluid level. This measures 4.8 x 2.8 x 5.3 cm in size. This has slightly increased in size compared to the previous examination. There is associated erosive/post surgical change of the sacrum, stable. OTHER: None IMPRESSION: 1. AGAIN NOTED IS A LOCULATED FLUID COLLECTION ALONG THE RIGHT POSTEROLATERAL PELVIS. THIS HAS SLIGHTLY INCREASED IN SIZE COMPARED TO THE AUGUST 15, 2014 EXAMINATION. THERE IS AN AIR-FLUID LEVEL WITHIN THE COLLECTION SUGGESTING INDICATION WITH A HOLLOW VISCUS. 2. AGAIN NOTED IS EROSIVE/POSTSURGICAL CHANGE TO THE SACRUM.
[2017-10-06 10:13] LABS: Urine Appearance Cloudy; Urine Blood 2+ (Negative); Urine Color Yellow; Urine Ketones Negative (Negative); Urine Protein Negative (Negative); Urine Specific Gravity 1.009 (1.010-1.030); Urine Urobilinogen Negative (Negative)
--- NOTE | 2017-10-06 13:15 | ED ---
Clarke Batres Stephanie, scribed for Toby Rangel MD on 10/06/17 at 0750 . Abdominal Pain/Female - HPI Summary HPI Summary: The pt is a 56 y/o F presenting to the ED with c/o abd pain that began 10/04/17. Her pain is located over the LLQ and RLQ and radiates to her lower back. She denies fever. The pt had abd surgery for cancer on February 11, 2017 in [place]. Since the surgery she has had intermittent abd pain however, her pain has increased over the past 2 days and her pain medications have not been effective. She rates her pain as a 6 in severity. The pt states on 10/05/17 she took ibuprofen with very minimal relief of symptoms. The pt is currently on oral abx. The pt has hx of colon cancer. - History of Current Complaint Chief Complaint: EDAbdPain Stated Complaint: ABD PAIN Time Seen by Provider: 10/06/17 07:49 Hx Obtained From: Patient ?: No Onset/Duration: Gradual Onset, Lasting Days - 2, Still Present Timing: Intermittent Episode Lasting Severity Currently: Moderate Pain Intensity: 6 Pain Scale Used: 0-10 Numeric Location: Discrete At: RLQ, Discrete At: LLQ Radiates: Yes Radiates to: Back Aggravating Factor(s): Nothing Alleviating Factor(s): Nothing Associated Signs and Symptoms: Positive: Back Pain. Negative: Fever Allergies/Adverse Reactions: Allergies Allergy/AdvReac Type Severity Reaction Status Date / Time metronidazole Allergy Intermediate Hives Verified 10/06/17 08:33 Adhesive Tape [Paper Tape] Allergy Mild Itching Verified 10/06/17 08:33 Penicillins Allergy Unknown Unknown Verified 10/06/17 08:33 Reaction Details tramadol Allergy Unknown Unknown Verified 10/06/17 08:33 Reaction Details hydrocodone Allergy Unknown Verified 10/06/17 08:33 Reaction Details Home Medications: Home Medications HYDROmorphone TAB* [Dilaudid TAB*] 2 mg PO Q6H PRN 10/06/17 [History Confirmed 10/06/17] Linezolid TAB* [Zyvox 600 MG TAB*] 600 mg PO BID 10/06/17 [History Confirmed 11/16] Senna TAB* [Senokot TAB*] 1 tab PO DAILY PRN 10/06/17 [History Confirmed ] PMH/Surg Hx/FS Hx/Imm Hx Endocrine/Hematology History: Denies: Hx Diabetes, Hx Systemic Lupus Erythematosus Cardiovascular History: Denies: Hx Congestive Heart Failure, Hx Hypertension, Hx Pacemaker/ICD Respiratory History: Denies: Hx Asthma GI History: Reports: Hx Diverticulosis, Hx Ileostomy, Other GI Disorders - colon ca with colostomy History: Reports: Other Problems/Disorders - hydronephrosis Denies: Hx Dialysis, Hx Renal Disease Musculoskeletal History: Reports: Hx Back Problems - piece of tailbone removed Denies: Hx Arthritis, Hx Rheumatoid Arthritis Sensory History: Reports: Hx Cataracts - left eye, Hx Contacts or Glasses - glasses-reading Denies: Hx Hearing Aid Opthamlomology History: Reports: Hx Cataracts - left eye, Hx Contacts or Glasses - glasses-reading Neurological History: Reports: Hx Headaches - IN THE PAST Psychiatric History: Denies: Hx Panic Disorder - Cancer History Cancer Type, Location and Year: COLON Hx Chemotherapy: Yes Hx Radiation Therapy: Yes - November 2016 - Surgical History Surgery Procedure, Year, and Place: tubal ligation 33 yrs ago. carpal tunnel 30 yrs ago. Colectomy w/colostomy (2014). Colon CA removal- and portion of tailbone and tissue (02/11/17) Hx Anesthesia Reactions: No Infectious Disease History: No Infectious Disease History: Denies: Traveled Outside the [place] in Last 30 Days - Family History Known Family History: Positive: Unknown - The pt denies fhx. Negative: Renal Disease - Social History Occupation: Employed Full-time Lives: With Family Alcohol Use: None Hx Substance Use: No Substance Use Type: Reports: None Hx Tobacco Use: No Smoking Status (MU): Never Smoked Tobacco Have You Smoked in the Last Year: No Review of Systems Negative: Fever Positive: Abdominal Pain Positive: Rash - in abd pannus Negative: Slurred Speech All Other Systems Reviewed And Are Negative: Yes Physical Exam - Summary Physical Exam Summary: Appearance: Well appearing, no pain distress Skin: warm, dry, intertrigo in abd pannus Head/face: normal Eyes: EOMI, LYNETTE ENT: normal Neck: supple, non-tender Respiratory: CTA, breath sounds present Cardiovascular: RRR, pulses symmetrical Abdomen: non-tender, soft, L sided colostomy with hard stool Bowel Sounds: increased bowel sounds; normal pitched Musculoskeletal: normal, strength/ROM intact Neuro: normal, sensory motor intact, A&Ox3 Triage Information Reviewed: Yes Vital Signs On Initial Exam: Initial Vitals Temp Pulse Resp BP Pulse Ox 98.2 F 66 20 138/76 100 10/06/17 07:36 18 07:36 10/06/17 07:36 10/06/17 07:36 10/06/17 07:36 Vital Signs Reviewed: Yes Diagnostics - Vital Signs Vital Signs Temp Pulse Resp BP Pulse Ox 10/06/17 07:36 98.2 F 66 20 138/76 100 - Laboratory Lab Results: Lab Results 10/06/17 10/06/17 10/06/17 Range/Units 08:14 08:14 08:14 WBC 8.7 (3.5-10.8) 10^3/ul RBC 4.16 (4.0-5.4) 10^6/ul Hgb 11.2 L (12.0-16.0) g/dl Hct 34 L (35-47) % MCV 81 (80-97) fL MCH 27 (27-31) pg MCHC 33 (31-36) g/dl RDW 23 H (10.5-15) % Plt Count 303 (150-450) 10^3/ul MPV 7.1 L (7.4-10.4) um3 Neut % (Auto) 76.4 (38-83) % Lymph % (Auto) 12.6 L (25-47) % Rankin % (Auto) 8.9 H (0-7) % Eos % (Auto) 1.7 (0-6) % Baso % (Auto) 0.4 (0-2) % Absolute Neuts (auto) 6.7 (1.5-7.7) 10^3/ul Absolute Lymphs (auto) 1.1 (1.0-4.8) 10^3/ul Absolute Monos (auto) 0.8 (0-0.8) 10^3/ul Absolute Eos (auto) 0.2 (0-0.6) 10^3/ul Absolute Basos (auto) 0 (0-0.2) 10^3/ul Absolute Nucleated RBC 0 10^3/ul Nucleated RBC % 0 INR (Anticoag Therapy) 1.05 H (0.77-1.02) Sodium 134 L (139-145) mmol/L Potassium 4.0 (3.5-5.0) mmol/L Chloride 101 (101-111) mmol/L Carbon Dioxide 22 (22-32) mmol/L Anion Gap 11 (2-11) mmol/L BUN 8 (6-24) mg/dL Creatinine 0.71 (0.51-0.95) mg/dL Est GFR ( Amer) 108.7 (>60) Est GFR (Non-Af Amer) 84.6 (>60) BUN/Creatinine Ratio 11.3 (8-20) Glucose 89 (70-100) mg/dL Lactic Acid (0.5-2.0) mmol/L Calcium 9.7 (8.6-10.3) mg/dL Total Bilirubin 0.90 (0.2-1.0) mg/dL AST 13 (13-39) U/L ALT 9 (7-52) U/L Alkaline Phosphatase 106 H (34-104) U/L C-Reactive Protein 3.21 (< 5.00) mg/L Total Protein 7.4 (6.4-8.9) g/dL Albumin 4.3 (3.2-5.2) g/dL Globulin 3.1 (2-4) g/dL Albumin/Globulin Ratio 1.4 (1-3) Lipase 24 (11.0-82.0) U/L Urine Color Urine Appearance Urine pH (5-9) Ur Specific T[place] (1.010-1.030) Urine Protein (Negative) Urine Ketones (Negative) Urine Blood (Negative) Urine Nitrate (Negative) Urine Bilirubin (Negative) Urine Urobilinogen (Negative) Ur Leukocyte Esterase (Negative) Urine WBC (Auto) (Absent) Urine RBC (Auto) (Absent) Ur Squamous Epith Cells (Absent) Urine Bacteria (Absent) Urine Glucose (Negative) 10/06/17 10/06/17 Range/Units 08:14 09:29 WBC (3.5-10.8) 10^3/ul RBC (4.0-5.4) 10^6/ul Hgb (12.0-16.0) g/dl Hct (35-47) % MCV (80-97) fL MCH (27-31) pg MCHC (31-36) g/dl RDW (10.5-15) % Plt Count (150-450) 10^3/ul MPV (7.4-10.4) um3 Neut % (Auto) (38-83) % Lymph % (Auto) (25-47) % Rankin % (Auto) (0-7) % Eos % (Auto) (0-6) % Baso % (Auto) (0-2) % Absolute Neuts (auto) (1.5-7.7) 10^3/ul Absolute Lymphs (auto) (1.0-4.8) 10^3/ul Absolute Monos (auto) (0-0.8) 10^3/ul Absolute Eos (auto) (0-0.6) 10^3/ul Absolute Basos (auto) (0-0.2) 10^3/ul Absolute Nucleated RBC 10^3/ul Nucleated RBC % INR (Anticoag Therapy) (0.77-1.02) Sodium (139-145) mmol/L Potassium (3.5-5.0) mmol/L Chloride (101-111) mmol/L Carbon Dioxide (22-32) mmol/L Anion Gap (2-11) mmol/L BUN (6-24) mg/dL Creatinine (0.51-0.95) mg/dL Est GFR ( Amer) (>60) Est GFR (Non-Af Amer) (>60) BUN/Creatinine Ratio (8-20) Glucose (70-100) mg/dL Lactic Acid 1.1 (0.5-2.0) mmol/L Calcium (8.6-10.3) mg/dL Total Bilirubin (0.2-1.0) mg/dL AST (13-39) U/L ALT (7-52) U/L Alkaline Phosphatase (34-104) U/L C-Reactive Protein (< 5.00) mg/L Total Protein (6.4-8.9) g/dL Albumin (3.2-5.2) g/dL Globulin (2-4) g/dL Albumin/Globulin Ratio (1-3) Lipase (11.0-82.0) U/L Urine Color Yellow Urine Appearance Cloudy Urine pH 8.0 (5-9) Ur Specific Tilden 1.009 L (1.010-1.030) Urine Protein Negative (Negative) Urine Ketones Negative (Negative) Urine Blood 2+ A (Negative) Urine Nitrate Negative (Negative) Urine Bilirubin Negative (Negative) Urine Urobilinogen Negative (Negative) Ur Leukocyte Esterase 3+ A (Negative) Urine WBC (Auto) 3+(>20/hpf) A (Absent) Urine RBC (Auto) 1+(3-5/hpf) A (Absent) Ur Squamous Epith Cells Present A (Absent) Urine Bacteria 1+ A (Absent) Urine Glucose Negative (Negative) Result Diagrams: 10/06/17 08:14 10/06/17 08:14 Lab Statement: Any lab studies that have been ordered have been reviewed, and results considered in the medical decision making process. - CT Pelvis CT Interpretation: Positive (See Comments) CT Interpretation Completed By: Radiologist - 1. AGAIN NOTED IS A LOCULATED FLUID COLLECTION ALONG THE RIGHT POSTEROLATERAL PELVIS. THIS HAS SLIGHTLY INCREASED IN SIZE COMPARED TO THE AUGUST 15, 2014 EXAMINATION. THERE IS AN AIR- FLUID LEVEL WITHIN THE COLLECTION SUGGESTING INDICATION WITH A HOLLOW VISCUS. 2. AGAIN NOTED IS EROSIVE/POSTSURGICAL CHANGE TO THE SACRUM. ED physician has reviewed this report. Re-Evaluation - Re-Evaluation First Eval Re-Evaluation Time: 09:48 Change: Improved - The pt states her pain has improved. Abdominal Pain Fem Course/Dx - Course Course Of Treatment: At 10:11, ED physician spoke to Dr. Demarco about the care of the pt. Patient with a complex medical history including surgery for an invasive adenocarcinoma of the rectum. Has had recurring abscesses with osteomyelitis in the pelvis/sacrum. Has required catheter drainage in the past by interventional radiology. Pain is increasing and similar to that in the past. CT the pelvis shows recurrent abscess. The patient is already on significant antibiotics. Infectious diseases doctor visited here in the ER. Will make recommendations on antibiotics. Interventional radiology was also contacted and is available to place a drain if needed. The oncology attending was contacted and will admit the patient. He will decide if the patient should be sent back to [place] for surgery. - Diagnoses Differential Diagnosis: Positive: Other - Recurrence of abscess, recurrence of cancer, bowel obstruction, metastatic lesion, constipation Provider Diagnoses: Postoperative retroperitoneal abscess, Sacral osteomyelitis, Acute pelvic pain , female - Provider Notifications Discussed Care Of Patient With: Jasper Zee Time Discussed With Above Provider: 10:10 Instructed by Provider To: Admit As Inpatient Discharge - Sign-Out/Discharge Documenting (check all that apply): Discharge/Admit/Transfer - Admit - Discharge Plan Condition: Fair Disposition: ADMITTED TO [facility] Referrals: Herman Cortes JR, PA [Primary Care Provider] - - Billing Disposition and Condition Condition: FAIR Disposition: Admitted to [facility] The documentation as recorded by the Clarke lepe Stephanie accurately reflects the service I personally performed and the decisions made by , Toby Rangel MD.
[2017-10-06] MEDS ORDERED: Piperacillin/Tazobac ADVAN(*) 3.375 GM in NS 0.9% 100 ML* 100 ML IVPB ONE (15:00)
[2017-10-06] MEDS ORDERED: Zosyn per Pharmacy* NOTE FOLLOW UP SCH (15:00)
[2017-10-06] MEDS: Morphine VIAL* 4 MG/ML VIAL (1 ml vial) IV PRN (16:49)
[2017-10-06] MEDS: NS 0.9% 1000 ML* 1,000 ML IV SCH (16:55)
[2017-10-06] MEDS ORDERED: Senna TAB PO PRN (17:08)
[2017-10-06] MEDS ORDERED: fentaNYL PATCH 25 MCG/HR TRANSDERM SCH (18:00)
[2017-10-06] MEDS: Acetaminophen TAB* 325 MG PO PRN (18:33)
--- NOTE | 2017-10-06 21:20 | CONS ---
CONSULTATION REPORT: DATE OF CONSULT: 10/06/17 REQUESTING PHYSICIAN: Dr. Rangel. CONSULTING SERVICE: Infectious Disease. REASON FOR CONSULTATION: Pelvic abscess. IMPRESSION: 1. Recurrence of posterior pelvic pain and CT shows recurrence of the pelvic abscess despite being on linezolid and moxifloxacin ever since the initial drainage procedure. 2. Chronic sacral osteomyelitis. 3. Rectal cancer treated with resection in 2017 complicated by multiple abdominal abscesses most recently pelvic infection treated with IR guided drain and a prolonged course of IV and then oral antibiotics. 4. FLAGYL caused rash. RECOMMENDATIONS: Hold antibiotics until she has IR guided aspiration here and used a culture material to guide that and preferred not to confound that daily with preoperative antibiotics. We will need to discuss the case with her surgeon at [place] as she has been down this road before and has not been cured. I think she may need an open procedure for debridement. When she has the procedure, we will add Zosyn. HISTORY OF PRESENT ILLNESS: This is a 56-year-old woman with rectal cancer which was resected and subsequently developed seromas which is became infected including most recently a pelvic collection which was treated initially with IR guided drainage at [place] and discharged on antibiotics. The cultures in our procedure grew Enterococcus and she had been on linezolid and moxifloxacin over the last few months. She has had gradual improvement in her pain. The drain was eventually removed and the pain was nearly gone. She notes that about 3 days ago, she developed pain in the similar right buttock without foul odor or open wound. She tested out for a couple days but the pain worsened particularly this morning, she had had some chills and a fever overnight. Because of these symptoms, she came into the emergency room today. Her white count is 8, creatinine 0.7, CRP 3, CT looks to show to my eye recurrence of the original pelvic collection compared to July 2017 CT scan. PAST MEDICAL HISTORY: 1. Rectal cancer, status post resection. 2. Pelvic abscess treated with IR guided drain. 3. Right ureteral stent. 4. Anxiety. MEDICATIONS: Here she received Dilaudid and saline. At home, she is takin. Moxifloxacin 400 mg a day. 2. Linezolid 600 mg by mouth twice daily. 3. Senna. 4. Dilaudid. 5. Fentanyl patch. FAMILY HISTORY: No recurrent infections. SOCIAL HISTORY: She lives with her in [facility]. She has no travel or sick contacts. REVIEW OF SYSTEMS: All negative to 14-point review of systems except as noted above. PHYSICAL EXAM: Vital Signs: Temperature is 37, heart rate is 60, respiratory rate 20, blood pressure 140/76, oxygen saturation 100% on room air. In general , she is awake, not in distress. Neurologic: She is oriented x3. Follows all commands. HEENT: There is no conjunctival hemorrhage. Oropharynx: Without lesions. Neck is supple without mass. Lymph Nodes: There is no cervical, supraclavicular, inguinal, axillary or epitrochlear lymphadenopathy. Heart: Regular rate and rhythm without murmurs, rubs, or gallops. Lungs are clear to auscultation bilaterally. Abdomen: Soft, nontender, nondistended. Bowel sounds present. Skin: There is no rash or splinter hemorrhages. Musculoskeletal: There is no spine tenderness to palpation. There is right buttock tenderness. There is no crepitus or fluctuance. DIAGNOSTIC STUDIES/LAB DATA: Creatinine is 0.7, CRP 3, white blood cell count 8 , hemoglobin 11, platelets 303. Urinalysis shows blood, leukocyte esterase. Please see impressions and recommendations outlined above which I discussed with Dr. Rangel. Thanks for asking me to see Dominik Eliecer in consultation. [id number]/[facility] #: [id number] [place]
[2017-10-06] MEDS: HYDROmorphone TAB* 2 MG PO PRN (21:29)
[2017-10-06] MEDS: ZOSYN 3.375 GM Q8H per EXTENDED INFUSION IVPB SCH ×2 (21:29)
[2017-10-06] MEDS: LORazepam INJ* 2 MG/ML 1 ML VIAL IV PUSH PRN (23:55)
[2017-10-07] MEDS: ZOSYN 3.375 GM Q8H per EXTENDED INFUSION IVPB SCH ×6 (03:23→19:39)
[2017-10-07] MEDS: NS 0.9% 1000 ML* 1,000 ML IV SCH ×3 (03:23→23:17)
[2017-10-07] MEDS: Cyclobenzaprine TAB* 10 MG PO PRN ×2 (06:08→17:47)
[2017-10-07] MEDS: HYDROmorphone TAB* 2 MG PO PRN ×4 (06:09→23:21)
--- NOTE | 2017-10-07 10:25 | PN ---
Progress Note - Progress Note Date of Service: 10/07/17 SOAP: Subjective: cc: sacral pain HPI: 56 year old woman with recurrent pelvic/sacral pain and increased size of sacral collection on CT, no fever or chills. Increased vaginal drainage which had decreased along with pain. Appetite ok. No dysuria. Objective: Vital Signs Temp 36.9 C 10/07/17 07:22 Pulse 70 10/07/17 07:22 Resp 20 10/07/17 08:48 BP 154/88 10/07/17 07:22 Pulse Ox 99 10/07/17 07:22 Intake & Output 10/06/17 10/07/17 10/07/17 18:59 06:59 18:59 Intake Total 1120 1403 360 Output Total 2700 Balance 1120 -1297 360 Weight 165 lb 6.4 oz Intake: IV Fluids 1000 1230 NS (0.9%) 1230 IVPB 173 ABX - ZOSYN 173 Oral 120 0 360 Output: Urine 2700 Other: # Voids 0 Gen:awake, no distress HEENT: no thrush Heart:RRR no murmur Lungs:CTA BL Abd:+BS NTND soft Skin: no rash MSK: R buttock tenderness no fluctuance Laboratory Results - last 24 hr 10/06/17 12:54 Lactic Acid 0.9 Assessment: 1. pelvic abscess with vaginal fistula, recurrent 2. rectal cancer past resection, chemo, xrt 3. flagyl allergy, pcn allergy tolerating zosyn Plan: 1. continue zosyn, IR drain, consider fistulagram and REPORTING LEAD onc eval after discharge for ? exploration/resection of fistula Discussed with Dr Zee 35 minutes floor time >50% face to face in counseling regarding diagnostic plans
[2017-10-07] MEDS: Acetaminophen TAB* 325 MG PO PRN (10:34)
--- NOTE | 2017-10-07 21:18 | RAD ---
Indication: Buttocks abscess. Real-time sonography of the buttocks was performed. Hypoechoic lesion measuring 4.5 x 3.2 x 2.3 cm is noted. IMPRESSION: Complex fluid collection likely representing abscess localized.
[2017-10-07] MEDS: Morphine VIAL* 4 MG/ML VIAL (1 ml vial) IV PRN (23:14)
[2017-10-08] MEDS: Acetaminophen TAB* 325 MG PO PRN ×3 (00:40→19:24)
[2017-10-08] MEDS: LORazepam INJ* 2 MG/ML 1 ML VIAL IV PUSH PRN (00:41)
[2017-10-08] MEDS ORDERED: Metoclopramide IV* 5 MG/ML 2 ML VIAL IV PRN (03:25)
[2017-10-08] MEDS: ZOSYN 3.375 GM Q8H per EXTENDED INFUSION IVPB SCH ×6 (03:31→19:23)
[2017-10-08 06:04] LABS: Hematocrit 35 % (35-47); Hemoglobin 11.5 g/dl (12.0-16.0); Mean Corpuscular HGB Conc 33 g/dl (31-36); Mean Corpuscular Hemoglobin 27 pg (27-31); Mean Corpuscular Volume 81 fL (80-97); Platelet Count 313 10^3/ul (150-450); Red Blood Count 4.31 10^6/ul (4.0-5.4); Red Cell Distribution Width 22 % (10.5-15); White Blood Count 10.4 10^3/ul (3.5-10.8)
[2017-10-08 06:23] LABS: EGFR Non-African American 106.8 (>60)
[2017-10-08 07:15] LABS: ABS Basophils 0 10^3/ul (0-0.2); ABS Eosinophils 0 10^3/ul (0-0.6); ABS Lymphocytes 1.1 10^3/ul (1.0-4.8); ABS Monocytes 0.8 10^3/ul (0-0.8); ABS Neutrophils 8.4 10^3/ul (1.5-7.7); ABS Nucleated RBC 0 10^3/ul; Eosinophil % 0.3 % (0-6); Lymphocyte % 10.8 % (25-47); Nucleated Red Blood Cells % 0
[2017-10-08] MEDS: Cyclobenzaprine TAB* 10 MG PO PRN ×2 (08:46→22:06)
--- NOTE | 2017-10-08 08:53 | PN ---
Progress Note - Progress Note Date of Service: 10/07/17 SOAP: Subjective: []Pain is better overnight on IV medication. Had been progressive over past week. Still with vaginal discharge. She is not eating much. very discouraged. Acetaminophen (Tylenol Tab*) 650 mg PO Q8H PRN PRN Reason: Pain/fever Last Admin: 10/08/17 08:45 Dose: 650 mg Cyclobenzaprine HCl (Flexeril Tab*) 10 mg PO TID PRN PRN Reason: muscle spasm Last Admin: 10/08/17 08:46 Dose: 10 mg Fentanyl (Duragesic Patch 25 Mcg/Hr*) 100 mcg TRANSDERM Q72H [facility] Last Admin: 10/06/17 18:27 Dose: 100 mcg Hydromorphone HCl (Dilaudid Tab*) 2 mg PO Q4H PRN PRN Reason: PAIN Last Admin: 10/07/17 23:21 Dose: 2 mg Sodium Chloride (Ns 0.9% 1000 Ml*) 1,000 mls @ 100 mls/hr IV PER RATE [facility] Last Admin: 10/07/17 23:17 Dose: 100 mls/hr Piperacillin Sod/Tazobactam (Sod 3.375 gm/ Sodium Chloride) 100 mls @ 25 mls/ hr IVPB Q8H [facility] Last Admin: 10/08/17 03:31 Dose: 25 mls/hr Lorazepam (Ativan Inj*) 0.5 mg IV PUSH Q4H PRN PRN Reason: insomnia/discomfort/nausea Last Admin: 10/08/17 00:41 Dose: 0.5 mg Metoclopramide HCl (Reglan Iv*) 10 mg IV Q8H PRN PRN Reason: NAUSEA/VOMITING Last Admin: 10/08/17 03:31 Dose: 10 mg Morphine Sulfate (Morphine Vial*) 2 mg IV Q4H PRN PRN Reason: PAIN Last Admin: 10/07/17 23:14 Dose: 2 mg Pharmacy Consult (Zosyn Per Pharmacy*) 1 note FOLLOW UP .ZOSYN PER PHARMACY [facility] Pharmacy Profile Note (Fentanyl Patch Check Q Shift) 1 note N/A 0700,1900 [facility] Senna (Senokot Tab*) 1 tab PO DAILY PRN PRN Reason: CONSTIPATION Objective: []Vital Signs Temp Pulse Resp BP Pulse Ox 98.9 F 82 16 149/91 100 10/08/17 07:28 10/08/17 07:28 10/08/17 07:28 10/08/17 07:28 10/08/17 07:28 HEENT - mucosa moist, no lesions CTA RRR S1S2 +BS, stoma, NT ND Did not examine buttocks, she reports pain Ext tr edema Assessment: []56 year old with history of rectal cancer, local recurrence and now status post radiation and salvage surgery with a recurrent pelvic abscess and necrotic pelvic tissues and associated sacral osteomyelitis. 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 Drained in past and then drain removed. The abscess has re-occurred despite suppressive antibiotics with linazolid and moxifloxacin. Case discussed with Dr. Daniels at [place] and Dr. Chaney. Plan: [] 1. Will plan pigtail drain and re-culture before change in antibitoics. 2. Evaluate for fistula and options to isolate abscess from vaginal contamination. 3. Pain. Cntinue Fentanyl and Morphine. If pain remains sever after drain, increase Fentanyl.
--- NOTE | 2017-10-08 10:01 | PN ---
Progress Note - Progress Note Date of Service: 10/08/17 SOAP: Subjective: []Did ok overnight. Eating well. Has ALDRIDGE, thinks from morphine. Acetaminophen (Tylenol Tab*) 650 mg PO Q8H PRN PRN Reason: Pain/fever Last Admin: 10/08/17 08:45 Dose: 650 mg Cyclobenzaprine HCl (Flexeril Tab*) 10 mg PO TID PRN PRN Reason: muscle spasm Last Admin: 10/08/17 08:46 Dose: 10 mg Fentanyl (Duragesic Patch 25 Mcg/Hr*) 100 mcg TRANSDERM Q72H [facility] Last Admin: 10/06/17 18:27 Dose: 100 mcg Hydromorphone HCl (Dilaudid Tab*) 2 mg PO Q4H PRN PRN Reason: PAIN Last Admin: 10/07/17 23:21 Dose: 2 mg Sodium Chloride (Ns 0.9% 1000 Ml*) 1,000 mls @ 100 mls/hr IV PER RATE [facility] Last Admin: 10/07/17 23:17 Dose: 100 mls/hr Piperacillin Sod/Tazobactam (Sod 3.375 gm/ Sodium Chloride) 100 mls @ 25 mls/ hr IVPB Q8H [facility] Last Admin: 10/08/17 03:31 Dose: 25 mls/hr Lorazepam (Ativan Inj*) 0.5 mg IV PUSH Q4H PRN PRN Reason: insomnia/discomfort/nausea Last Admin: 10/08/17 00:41 Dose: 0.5 mg Metoclopramide HCl (Reglan Iv*) 10 mg IV Q8H PRN PRN Reason: NAUSEA/VOMITING Last Admin: 10/08/17 03:31 Dose: 10 mg Morphine Sulfate (Morphine Vial*) 2 mg IV Q4H PRN PRN Reason: PAIN Last Admin: 10/07/17 23:14 Dose: 2 mg Pharmacy Consult (Zosyn Per Pharmacy*) 1 note FOLLOW UP .ZOSYN PER PHARMACY [facility] Pharmacy Profile Note (Fentanyl Patch Check Q Shift) 1 note N/A 0700,1900 [facility] Senna (Senokot Tab*) 1 tab PO DAILY PRN PRN Reason: CONSTIPATION Objective: [] Vital Signs Temp Pulse Resp BP Pulse Ox 98.9 F 82 18 149/91 100 10/08/17 07:28 10/08/17 07:28 10/08/17 08:46 10/08/17 07:28 10/08/17 07:28 HEENT - mucosa moist, no lesions CTA RRR S1S2 +BS, stoma, NT ND Did not examine buttocks, she reports pain Ext tr edema Assessment: []56 year old with history of rectal cancer, local recurrence and now status post radiation and salvage surgery with a recurrent pelvic abscess and necrotic pelvic tissues and associated sacral osteomyelitis. 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 Drained in past and then drain removed. The abscess has re-occurred despite suppressive antibiotics with linazolid and moxifloxacin. Plan: [] 1. Will plan pigtail drain today and re-culture before change in antibitoics. 2. Evaluate for fistula and options to isolate abscess from vaginal contamination. 3. Pain. Cntinue Fentanyl. Change to Dilaudid from Morphine for ALDRIDGE. Aftter procedure will add Naproxen 4. PPI while on NSAIDS 5. Blood counts stable
[2017-10-08] MEDS ORDERED: HYDROmorphone INJ* 2 MG/ML CARPUJECT SYRINGE IV SLOW PU PRN (10:02)
[2017-10-08] MEDS ORDERED: fentaNYL* 50 MCG/ML 2 ML VIAL (100 MCG VIAL) ONE (10:05)
[2017-10-08] MEDS: NS 0.9% 1000 ML* 1,000 ML IV SCH ×2 (12:05→22:57)
[2017-10-08] MEDS: CMC:Pantoprazole TAB (NF) 40 MG TAB PO SCH (12:05)
[2017-10-08] MEDS: Enoxaparin(*) 40 MG/0.4 ML SYR SUBCUT SCH (12:05)
[2017-10-08] MEDS: Naproxen TAB* 375 MG PO SCH ×2 (12:12→22:06)
--- NOTE | 2017-10-08 12:50 | RAD ---
CPT II Codes: 6100F INDICATION: Low attenuation collection at the right sacrum seen on prior CT examination and a woman with a history of colon cancer and abscesses COMPARISON: CT of the pelvis dated October 06, 2017 The benefits and risks of procedure explained to the patient and the patient signed informed consent. Multiple images of the right sacral area were obtained. On ultrasound the collection appeared to be more echogenic than fluid or abscess.. A time out was performed before beginning the procedure. The patient was prepped and draped in the usual sterile fashion. The skin and tissue overlying the fluid collection were anesthetized with 1% lidocaine. Percutaneously, a specimen was obtained with a 18 gauge needle. Only 2 to 3 mL of serous fluid could be aspirated from an 18-gauge needle. A pigtail drainage catheter was deemed unnecessary. The specimen was labeled and packaged and sent to the laboratory. The post procedure ultrasound demonstrates no evidence for hematoma. The patient tolerated procedure well without incident. IMPRESSION: Uncomplicated ultrasound-guided fine-needle aspiration of right sacral phlegmonous collection yielding only 2 - 3 cm of fluid.
[2017-10-08] MEDS: fentaNYL Patch Check Q Shift 1 NOTE SCH (19:22)
[2017-10-09] MEDS: ZOSYN 3.375 GM Q8H per EXTENDED INFUSION IVPB SCH ×6 (05:00→19:21)
[2017-10-09] MEDS: Naproxen TAB* 375 MG PO SCH ×3 (05:00→22:39)
[2017-10-09 06:40] LABS: ABS Basophils 0 10^3/ul (0-0.2); ABS Eosinophils 0.2 10^3/ul (0-0.6); ABS Lymphocytes 1.7 10^3/ul (1.0-4.8); ABS Neutrophils 4.3 10^3/ul (1.5-7.7); ABS Nucleated RBC 0 10^3/ul; Eosinophil % 2.5 % (0-6); Hematocrit 32 % (35-47); Hemoglobin 10.9 g/dl (12.0-16.0); Lymphocyte % 23.8 % (25-47); Mean Corpuscular HGB Conc 34 g/dl (31-36); Mean Corpuscular Hemoglobin 28 pg (27-31); Mean Corpuscular Volume 82 fL (80-97); Mean Platelet Volume 7.1 um3 (7.4-10.4); Nucleated Red Blood Cells % 0; Platelet Count 294 10^3/ul (150-450); Red Blood Count 3.94 10^6/ul (4.0-5.4); Red Cell Distribution Width 22 % (10.5-15); White Blood Count 7.2 10^3/ul (3.5-10.8)
[2017-10-09 06:58] LABS: EGFR Non-African American 97.1 (>60)
[2017-10-09] MEDS: fentaNYL Patch Check Q Shift 1 NOTE SCH ×2 (07:26→17:48)
--- NOTE | 2017-10-09 08:45 | PN ---
Subjective Date of Service: 10/09/17 Interval History: Afebrile. No overnight events. Feeling better today. Pain is controlled. IR drained 2-3 cc serous fluid from sacral collection yesterday. Objective Active Medications: Acetaminophen (Tylenol Tab*) 650 mg PO Q8H PRN PRN Reason: Pain/fever Last Admin: 10/08/17 19:24 Dose: 650 mg Cyclobenzaprine HCl (Flexeril Tab*) 10 mg PO TID PRN PRN Reason: muscle spasm Last Admin: 10/08/17 22:06 Dose: 10 mg Enoxaparin Sodium (Lovenox(*)) 40 mg SUBCUT Q24H [facility] Last Admin: 10/08/17 12:05 Dose: 40 mg Fentanyl (Duragesic Patch 25 Mcg/Hr*) 100 mcg TRANSDERM Q72H [facility] Last Admin: 10/06/17 18:27 Dose: 100 mcg Hydromorphone HCl (Dilaudid Inj*) 1 mg IV SLOW PU Q3H PRN PRN Reason: PAIN Sodium Chloride (Ns 0.9% 1000 Ml*) 1,000 mls @ 100 mls/hr IV PER RATE [facility] Last Admin: 10/08/17 22:57 Dose: 100 mls/hr Piperacillin Sod/Tazobactam (Sod 3.375 gm/ Sodium Chloride) 100 mls @ 25 mls/ hr IVPB Q8H [facility] Last Admin: 10/09/17 05:00 Dose: 25 mls/hr Lorazepam (Ativan Inj*) 0.5 mg IV PUSH Q4H PRN PRN Reason: insomnia/discomfort/nausea Last Admin: 10/08/17 00:41 Dose: 0.5 mg Metoclopramide HCl (Reglan Iv*) 10 mg IV Q8H PRN PRN Reason: NAUSEA/VOMITING Last Admin: 10/08/17 03:31 Dose: 10 mg Naproxen (Naprosyn Tab*) 375 mg PO Q8HR [facility] Last Admin: 10/09/17 05:00 Dose: 375 mg Pantoprazole Sodium (Protonix Tab (Nf)) 40 mg PO DAILY [facility] Last Admin: 10/08/17 12:05 Dose: 40 mg Pharmacy Consult (Zosyn Per Pharmacy*) 1 note FOLLOW UP .ZOSYN PER PHARMACY [facility] Pharmacy Profile Note (Fentanyl Patch Check Q Shift) 1 note N/A 0700,1900 [facility] Last Admin: 10/09/17 07:26 Dose: 1 note Senna (Senokot Tab*) 1 tab PO DAILY PRN PRN Reason: CONSTIPATION Last Admin: 10/08/17 22:06 Dose: 1 tab Vital Signs - 8 hr 10/09/17 10/09/17 02:08 04:24 Temperature 98.2 F Pulse Rate 68 Respiratory 18 17 Rate Blood Pressure 141/82 (mmHg) O2 Sat by Pulse 99 Oximetry Oxygen Devices in Use Now: None Appearance: alert, nontoxic, sitting up in chair Eyes: No Scleral Icterus Ears/Nose/Mouth/Throat: NL Teeth, Lips, Gums Neck: NL Appearance and Movements; NL JVP Respiratory: Symmetrical Chest Expansion and Respiratory Effort, Clear to Auscultation Cardiovascular: NL Sounds; No Murmurs; No JVD, RRR Abdominal: NL Sounds; No Tenderness; No Distention, - - colostomy LLQ Lymphatic: No Cervical Adenopathy Extremities: No Edema Skin: No Rash or Ulcers, - - no fluctuance or induration over buttocks Neurological: Alert and Oriented x 3 Result Diagrams: 10/09/17 05:41 10/09/17 05:41 Additional Lab and Data: Lab Results 10/06/17 10/06/17 10/06/17 Range/Units 08:14 08:14 08:14 WBC 8.7 (3.5-10.8) 10^3/ul RBC 4.16 (4.0-5.4) 10^6/ul Hgb 11.2 L (12.0-16.0) g/dl Hct 34 L (35-47) % MCV 81 (80-97) fL MCH 27 (27-31) pg MCHC 33 (31-36) g/dl RDW 23 H (10.5-15) % Plt Count 303 (150-450) 10^3/ul MPV 7.1 L (7.4-10.4) um3 Neut % (Auto) 76.4 (38-83) % Lymph % (Auto) 12.6 L (25-47) % Millard % (Auto) 8.9 H (0-7) % Eos % (Auto) 1.7 (0-6) % Baso % (Auto) 0.4 (0-2) % Absolute Neuts (auto) 6.7 (1.5-7.7) 10^3/ul Absolute Lymphs (auto) 1.1 (1.0-4.8) 10^3/ul Absolute Monos (auto) 0.8 (0-0.8) 10^3/ul Absolute Eos (auto) 0.2 (0-0.6) 10^3/ul Absolute Basos (auto) 0 (0-0.2) 10^3/ul Absolute Nucleated RBC 0 10^3/ul Nucleated RBC % 0 INR (Anticoag Therapy) 1.05 H (0.77-1.02) Sodium 134 L (139-145) mmol/L Potassium 4.0 (3.5-5.0) mmol/L Chloride 101 (101-111) mmol/L Carbon Dioxide 22 (22-32) mmol/L Anion Gap 11 (2-11) mmol/L BUN 8 (6-24) mg/dL Creatinine 0.71 (0.51-0.95) mg/dL Est GFR ( Amer) 108.7 (>60) Est GFR (Non-Af Amer) 84.6 (>60) BUN/Creatinine Ratio 11.3 (8-20) Glucose 89 (70-100) mg/dL Lactic Acid (0.5-2.0) mmol/L Calcium 9.7 (8.6-10.3) mg/dL Total Bilirubin 0.90 (0.2-1.0) mg/dL AST 13 (13-39) U/L ALT 9 (7-52) U/L Alkaline Phosphatase 106 H (34-104) U/L C-Reactive Protein 3.21 (< 5.00) mg/L Total Protein 7.4 (6.4-8.9) g/dL Albumin 4.3 (3.2-5.2) g/dL Globulin 3.1 (2-4) g/dL Albumin/Globulin Ratio 1.4 (1-3) Lipase 24 (11.0-82.0) U/L Urine Color Urine Appearance Urine pH (5-9) Ur Specific [place] (1.010-1.030) Urine Protein (Negative) Urine Ketones (Negative) Urine Blood (Negative) Urine Nitrate (Negative) Urine Bilirubin (Negative) Urine Urobilinogen (Negative) Ur Leukocyte Esterase (Negative) Urine WBC (Auto) (Absent) Urine RBC (Auto) (Absent) Ur Squamous Epith Cells (Absent) Urine Bacteria (Absent) Urine Glucose (Negative) 10/06/17 10/06/17 Range/Units 08:14 09:29 WBC (3.5-10.8) 10^3/ul RBC (4.0-5.4) 10^6/ul Hgb (12.0-16.0) g/dl Hct (35-47) % MCV (80-97) fL MCH (27-31) pg MCHC (31-36) g/dl RDW (10.5-15) % Plt Count (150-450) 10^3/ul MPV (7.4-10.4) um3 Neut % (Auto) (38-83) % Lymph % (Auto) (25-47) % Millard % (Auto) (0-7) % Eos % (Auto) (0-6) % Baso % (Auto) (0-2) % Absolute Neuts (auto) (1.5-7.7) 10^3/ul Absolute Lymphs (auto) (1.0-4.8) 10^3/ul Absolute Monos (auto) (0-0.8) 10^3/ul Absolute Eos (auto) (0-0.6) 10^3/ul Absolute Basos (auto) (0-0.2) 10^3/ul Absolute Nucleated RBC 10^3/ul Nucleated RBC % INR (Anticoag Therapy) (0.77-1.02) Sodium (139-145) mmol/L Potassium (3.5-5.0) mmol/L Chloride (101-111) mmol/L Carbon Dioxide (22-32) mmol/L Anion Gap (2-11) mmol/L BUN (6-24) mg/dL Creatinine (0.51-0.95) mg/dL Est GFR ( Amer) (>60) Est GFR (Non-Af Amer) (>60) BUN/Creatinine Ratio (8-20) Glucose (70-100) mg/dL Lactic Acid 1.1 (0.5-2.0) mmol/L Calcium (8.6-10.3) mg/dL Total Bilirubin (0.2-1.0) mg/dL AST (13-39) U/L ALT (7-52) U/L Alkaline Phosphatase (34-104) U/L C-Reactive Protein (< 5.00) mg/L Total Protein (6.4-8.9) g/dL Albumin (3.2-5.2) g/dL Globulin (2-4) g/dL Albumin/Globulin Ratio (1-3) Lipase (11.0-82.0) U/L Urine Color Yellow Urine Appearance Cloudy Urine pH 8.0 (5-9) Ur Specific [place] 1.009 L (1.010-1.030) Urine Protein Negative (Negative) Urine Ketones Negative (Negative) Urine Blood 2+ A (Negative) Urine Nitrate Negative (Negative) Urine Bilirubin Negative (Negative) Urine Urobilinogen Negative (Negative) Ur Leukocyte Esterase 3+ A (Negative) Urine WBC (Auto) 3+(>20/hpf) A (Absent) Urine RBC (Auto) 1+(3-5/hpf) A (Absent) Ur Squamous Epith Cells Present A (Absent) Urine Bacteria 1+ A (Absent) Urine Glucose Negative (Negative) Microbiology and Other Data: Microbiology 10/08/17 11:25 Gram Stain - Final Misc Fluid (See Comment) - Abscess Skin and Soft Tissue MRSA/MSSA (PCR - Final Mrsa Negative S.aureus Negative Assess/Plan/Problems-Billing Assessment: 56 yo female with history of rectal ca diagnosed and resected in 2010, with recurrence and salvage resection 02/15 complicated by abscess requiring drain, which was removed 07/2017, admitted on 10/07 with pain and found to have fluid collection - Patient Problems (1) Seroma Current Visit: No Status: Acute Code(s): HZS7394 - SNOMED Code(s): 515389412 Comment: vs. abscess? fluid reported as serous will follow up cultures from yesterday continue pip/tazo for now with plan to de-escalate as able pain is controlled on fentanyl and dilaudid (2) Complicated UTI (urinary tract infection) Current Visit: Yes Status: Acute Code(s): N39.0 - URINARY TRACT INFECTION, SITE NOT SPECIFIED SNOMED Code(s): 42775136 Comment: pseudomonas sensitivities pending continue pip/tazo (3) Rectal cancer Current Visit: No Status: Acute Code(s): C20 - MALIGNANT NEOPLASM OF RECTUM SNOMED Code(s): 644576688 (4) Rectal vaginal fistula Current Visit: Yes Status: Acute Code(s): N82.3 - FISTULA OF VAGINA TO LARGE INTESTINE SNOMED Code(s): 29382148 Comment: may need synthetic filament spinner onc evaluation for surgical repair; will defer to onc
[2017-10-09] MEDS: CMC:Pantoprazole TAB (NF) 40 MG TAB PO SCH (08:51)
[2017-10-09] MEDS: Acetaminophen TAB* 325 MG PO PRN ×2 (09:58→19:24)
[2017-10-09] MEDS: Enoxaparin(*) 40 MG/0.4 ML SYR SUBCUT SCH (09:59)
[2017-10-09] MEDS: Cyclobenzaprine TAB* 10 MG PO PRN (09:59)
[2017-10-09] MEDS ORDERED: fentaNYL PATCHs 100 MCG/HR TRANSDERM SCH (18:00)
[2017-10-10] MEDS: ZOSYN 3.375 GM Q8H per EXTENDED INFUSION IVPB SCH ×4 (03:05→11:06)
[2017-10-10] MEDS: Naproxen TAB* 375 MG PO SCH (05:49)
[2017-10-10] MEDS: fentaNYL Patch Check Q Shift 1 NOTE SCH (06:58)
[2017-10-10] MEDS: CMC:Pantoprazole TAB (NF) 40 MG TAB PO SCH (08:06)
--- NOTE | 2017-10-10 09:09 | PN ---
Progress Note - Progress Note Date of Service: 10/10/17 SOAP: Subjective: cc: sacral pain HPI: 56 year old woman with recurrent pelvic/sacral pain and increased size of sacral collection on CT, no fever or chills. Pain much improved over the weekend as is the vaginal discharge. She had US guided I&D for 2 cc serous fluid. Objective: Vital Signs Temp 36.3 C 10/10/17 03:33 Pulse 70 10/10/17 03:33 Resp 16 10/10/17 03:33 BP 119/77 10/10/17 03:33 Pulse Ox 99 10/10/17 03:33 Intake & Output 10/09/17 10/10/17 10/10/17 18:59 06:59 18:59 Intake Total 2154 240 Output Total 1800 1350 1000 Balance 354 -1110 -1000 Intake: IVPB 124 ABX - ZOSYN 124 Oral 2030 240 Output: Urine 1800 1350 1000 Other: Estimated Void Large # Voids 1 Gen:awake, no distress HEENT: no thrush Heart:RRR no murmur Lungs:CTA BL Abd:+BS NTND soft Skin: no rash MSK: R buttock non tender, no mass Assessment: 1. pelvic abscess with vaginal fistula, persistent ?pain relieved by incr vaginal discharge 2. rectal cancer past resection, chemo, xrt 3. flagyl allergy, pcn allergy tolerating zosyn Plan: 1. continue zosyn, SURVEILLANCE S[employer]OR OFFICER onc eval after discharge for ? exploration/resection of fistula. Has been on moxiflox and linezolid at home, will resume same pending culture results. Discussed with Dr Zee 35 minutes floor time >50% face to face in counseling regarding home antibiotics and further workup
--- NOTE | 2017-10-10 09:36 | PN ---
Progress Note - Progress Note Date of Service: 10/10/17 SOAP: Subjective: []Better today. Pain improved after procedure but minimal fluid removed. No fevers. No change vaginal drainage. Acetaminophen (Tylenol Tab*) 650 mg PO Q8H PRN PRN Reason: Pain/fever Last Admin: 10/09/17 19:24 Dose: 650 mg Cyclobenzaprine HCl (Flexeril Tab*) 10 mg PO TID PRN PRN Reason: muscle spasm Last Admin: 10/09/17 09:59 Dose: 10 mg Enoxaparin Sodium (Lovenox(*)) 40 mg SUBCUT Q24H [facility] Last Admin: 10/09/17 09:59 Dose: 40 mg Fentanyl (Duragesic Patch 100 Mcg/Hr *) 100 mcg TRANSDERM Q72H [facility] Last Admin: 10/09/17 17:44 Dose: 100 mcg Hydromorphone HCl (Dilaudid Inj*) 1 mg IV SLOW PU Q3H PRN PRN Reason: PAIN Piperacillin Sod/Tazobactam (Sod 3.375 gm/ Sodium Chloride) 100 mls @ 25 mls/ hr IVPB Q8H [facility] Last Admin: 10/10/17 03:05 Dose: 25 mls/hr Lorazepam (Ativan Inj*) 0.5 mg IV PUSH Q4H PRN PRN Reason: insomnia/discomfort/nausea Last Admin: 10/08/17 00:41 Dose: 0.5 mg Metoclopramide HCl (Reglan Iv*) 10 mg IV Q8H PRN PRN Reason: NAUSEA/VOMITING Last Admin: 10/08/17 03:31 Dose: 10 mg Naproxen (Naprosyn Tab*) 375 mg PO Q8HR [facility] Last Admin: 10/10/17 05:49 Dose: 375 mg Pantoprazole Sodium (Protonix Tab (Nf)) 40 mg PO DAILY [facility] Last Admin: 10/10/17 08:06 Dose: 40 mg Pharmacy Consult (Zosyn Per Pharmacy*) 1 note FOLLOW UP .ZOSYN PER PHARMACY [facility] Pharmacy Profile Note (Fentanyl Patch Check Q Shift) 1 note N/A 0700,1900 [facility] Last Admin: 10/10/17 06:58 Dose: 1 note Senna (Senokot Tab*) 1 tab PO DAILY PRN PRN Reason: CONSTIPATION Last Admin: 10/08/17 22:06 Dose: 1 tab Objective: [] Vital Signs Temp Pulse Resp BP Pulse Ox 97.4 F 70 16 119/77 99 10/10/17 03:33 10/10/17 03:33 10/10/17 03:33 10/10/17 03:33 10/10/17 03:33 HEENT : no thrush, no lesions CTA RRR S1S2 Abd - NT ND stoma intact no pain to palpation buttocks Ext no c/c/e Assessment: []56 year old abscess after salvage surgery for locally recurrent rectal cancer. Presented with increased pain and vaginal discharge. Had small amount of fluid drained and symptoms improved. Ddx: progressive abscess, small shift in fluid accumulation with increased pain, progressive disease is possible. Plan: []1. Will discharge home on Linazolid and moxifloxacin, follow up on cultures 2. Plan RTC in 2-3 weeks with follow up MRI to rule out recurrent cancer. 3. Fentanyl at 100 mcg and Naproxen prn for pain. 4. Will plan follow up at [facility] with Dr. Daniels. time with patient and chart 50 min, planning and coordinating care.
[2017-10-10] MEDS: Acetaminophen TAB* 325 MG PO PRN (11:05)
[2017-10-10] MEDS: Enoxaparin(*) 40 MG/0.4 ML SYR SUBCUT SCH (11:06)
[2017-10-10 11:31] VITALS: BP 136/74
--- NOTE | 2017-10-10 12:39 | DS ---
DISCHARGE SUMMARY: DATE OF ADMISSION: 10/06/17 DATE OF DISCHARGE: 10/10/17 DISCHARGE DIAGNOSES: 1. Chronic pelvic abscess. 2. History of rectal cancer, status post salvage surgery and radiation. 3. Anemia. 4. Uncontrolled pain. HOSPITAL COURSE: The patient was admitted on 10/06/17 after a marked increase in her right-sided pel dana and buttock pain starting on 10/04/17. She also noted increased vaginal drainage. CT scan at [facility] showed a modest increase in the size of her longstanding pelvic abscess from 51 mm to 53 m m and 22 mm to 26 mm in width. She also had a urine consistent with a UTI and cultures showing pseud omonas. She was started on IV Zosyn for the pseudomonal UTI and placed on IV pain medication with mo rphine and then changed to Dilaudid for headaches. She had an attempted drain of the pelvic abscess with 2 to 3 cc of fluid removed, Dr. Rodgers felt the bulk of the lesion was a semi-solid phlegmon. C ultures are pending. While very little fluid remained, her pain did improve during the hospitalizati on. She now reports pain of 3 to 4 out of 10, still increased from her baseline prior to the 5th, bu t markedly improved from admission. Case has been discussed with Dr. Chaney as well as Dr. Daniels of the [facility]. Plan will be to discharge home. Continue linezolid and moxifloxacin. We will discontinue Zosyn on d ischarge pseudomonal UTI. We will plan followup at [facility] over the next 2 to [address] Daniels, possibly seeing ID at [place] as well with Dr. Machado. We will also plan MRI of t he pelvis to rule out recurrent disease and she will see me in clinic over the next 2 to 3 weeks. MEDICATIONS ON DISCHARGE: 1. Fentanyl 100 mcg daily. 2. Tylenol 650 mg q.8 p.r.n. 3. Naproxen 375 mg q.8 p.r.n. 4. Senna 1 tablet daily. 5. Dilaudid 2 mg p.o. q.6 p.r.n. 6. Linezolid 600 mg b.i.d. 7. Moxifloxacin 400 mg p.o. daily. DISCHARGE INSTRUCTIONS: Follow up in 1 to 2 weeks in the clinic with me. [id number]/[facility] #: [id number]
== END 2017-10-10 13:10 | disposition home or self-care (01) | DRG 383 ==
LOC: ED 07:30 → MED 13:52
PROVIDERS: ADMIT Internal Medicine Hematology & Oncology; ATTEND Internal Medicine Hematology & Oncology
PROC: 0W9J3ZZ Drainage of Pelvic Cavity, Percutaneous Approach (ICD-10-PCS; principal; 2017-10-08)
DX: L02.31 Cutaneous abscess of buttock (principal); N39.0 Urinary tract infection, site not specified; C20 Malignant neoplasm of rectum; N82.3 Fistula of vagina to large intestine; M86.68 Other chronic osteomyelitis, other site; B95.2 Enterococcus as the cause of diseases classified elsewhere; N73.9 Female pelvic inflammatory disease, unspecified; B96.5 Pseudomonas (aeruginosa) (mallei) (pseudomallei) as the cause of diseases classified elsewhere; D64.9 Anemia, unspecified; I45.10 Unspecified right bundle-branch block; F41.9 Anxiety disorder, unspecified; K57.90 Diverticulosis of intestine, part unspecified, without perforation or abscess without bleeding; Z93.3 Colostomy status; Z88.6 Allergy status to analgesic agent; Z88.0 Allergy status to penicillin; Z88.8 Allergy status to other drugs, medicaments and biological substances; Z91.048 Other nonmedicinal substance allergy status; Z79.1 Long term (current) use of non-steroidal anti-inflammatories (NSAID); Z79.899 Other long term (current) drug therapy; Z80.3 Family history of malignant neoplasm of breast; Z82.49 Family history of ischemic heart disease and other diseases of the circulatory system; Z81.2 Family history of tobacco abuse and dependence
CPT/HCPCS: 36415; 72193; 76705; 76942; 80053; 81003; 81015; 83605; 83690; 85025; 85610; 86140; 87040; 87070; 87077; 87086; 87102; 87106; 87185; 87186; 87205; 87640; 87641; 99222; 99232; 99239; 99284; A9270-GY; J1170; J1650; J2060; J2270; J2543; J2765; J3010; Q9967

== ENCOUNTER → 2017-10-26 15:05 | Day surgery (SDC) | payer BC ==
--- NOTE | 2017-10-26 08:59 | HP ---
CC: Dr. Jasper Zee; Dr. Chandrakant Chaney * ADMITTING HISTORY AND PHYSICAL: DATE OF ADMISSION: 10/26/17 ADMITTING DIAGNOSIS: Right hydronephrosis. PLANNED PROCEDURE: Right retrograde, right stent insertion, possible balloon dilatation. SURGEON: Dr. Martinez. HISTORY OF PRESENT ILLNESS: Cyndie Gonzáles is a 56-year-old lady with a history of rectal carcinoma. Her original diagnosis was about 3 years ago and she subsequently had a recurrence in the pelvis and in the coccyx and had major debulking surgery done in 2017. She then developed a pelvic abscess, which is still an ongoing issue and she is still on antibiotics related to this. At one time, she had percutaneous drainage of the pelvic abscess, but those drains have been removed. She had right hydronephrosis and had undergone right stent insertion with resolution of the hydronephrosis. My hope was that with partial resolution of the pelvic abscess, she would not require the stent and this was removed, but a followup ultrasound showed recurrence of the hydronephrosis. PAST MEDICAL HISTORY: Significant as described above for the colorectal cancer with recurrence of the cancer and the pelvic abscess. MEDICATIONS ON ADMISSION: 1. On linezolid for antibiotic as per Dr. Chaney. 2. Oxycodone p.r.n. 3. Naprosyn p.r.n. ALLERGIES AND INTOLERANCES: TRAMADOL, PENICILLIN, HYDROCODONE, and ADHESIVE TAPE. REVIEW OF SYSTEMS: She denies any chest pain or shortness of breath. There is no history of diabetes mellitus or any other major systemic illness. PHYSICAL EXAMINATION GENERAL: Reveals a pleasant, middle-aged lady. VITAL SIGNS: Blood pressure is 110/70, pulse 68 per minute and regular, temperature 97.2, oxygen saturation 98% on room air. LUNGS: Clear bilaterally. CARDIOVASCULAR: Regular rate and rhythm. S1, S2. ABDOMEN: There is mild right flank tenderness. IMPRESSION: A 56-year-old lady with recurrence of hydronephrosis 1 week after stent removal. PLAN: Right retrograde, right stent insertion, possible balloon dilatation. [id number]/[facility] #: [id number] MTDD
[~2017-10-26 15:05] MED LIST changes: +Dexamethasone IV* 4 MG/ML 1 ML (4 MG) IV SLOW PU ONE; +Dexamethasone IV* 4 MG/ML 1 ML (4 MG) ONE; +DiMENhydriNATE IV* 50 MG/ML VIAL IV PUSH PRN; +Famotidine IV* 10 MG/ML 2 ML (20 mg) ONE; +Gentamicin ADULT (*) 160 MG in NS 0.9% 100 ML* 100 ML IVPB ONE; +HYDROmorphone INJ* 0.5 MG/0.5 ML SYRINGE IV PRN; +Iohexol 180 (CONTRAST) 10 ML SDV IV ONE; +Levofloxacin 500 MG IVPREMIX(* 500 MG/100 ML BAG IVPB ONE; +Lidocaine 2% PF * 5 ML VIAL ONE; +Midazolam* 1 MG/ML 5 ML VIAL (5 MG) ONE; +Naloxone* 0.4 MG/ML 1 ML VIAL IV PRN; +Ondansetron ODT TAB* 4 MG ONE; +Ondansetron ODT TAB* 4 MG PO ONE; +Ondansetron ODT TAB* 4 MG PO PRN; +Propofol* 10 MG/ML 20 ML BTL IV PUSH ONE; -Sodium Citrate/Citric Acid* 15 ML UDC PO ONE; +fentaNYL* 50 MCG/ML 2 ML VIAL (100 MCG VIAL) IV PRN; +fentaNYL* 50 MCG/ML 5 ML VIAL (250 MCG VIAL) ONE; +oxyCODONE/Acetamin 5/325 MG* TAB PO PRN
[2017-10-26 20:04] VITALS: BP 143/76
--- NOTE | 2017-10-26 21:45 | RAD ---
INDICATION: Right renal stent placement COMPARISON: None FINDINGS: 26 seconds of fluoroscopy were provided for the urology department. Fluoroscopic spot imaging of the abdomen were obtained for operative control. Images show a small amount of contrast near the ureteral orifice but there is no cannulation of the ureter. CPT II Codes: G9500 (fluoro time doc)
--- NOTE | 2017-10-27 07:31 | OP ---
CC: Dr. Jasper Zee; Dr. Addy Rodgers; Dr. Herman Cortes * DATE OF OPERATION: 10/26/17 - [facility] DATE OF : 56 SURGEON: Geovanni Martinez MD ANESTHESIOLOGIST: Luis Miguel Hernandez MD ANESTHESIA: General. PRE-OP DIAGNOSIS: Right hydronephrosis. POST-OP DIAGNOSES: 1. Right hydronephrosis. 2. Pelvic abscess, right side. OPERATIVE PROCEDURE: 1. Cystoscopy. 2. Right retrograde pyelogram. 3. Right ureteroscopy. 4. Attempted right stent insertion. INDICATIONS: Cyndie Gonzáles is a 56-year-old lady with a history of extensive surgery for recurrent pelvic malignancy. She then developed a pelvic abscess, which had required drainage and then developed right hydronephrosis. I had placed a right stent, which was then removed about 10 days ago. There had been evidence that the pelvic abscess was resolving, so I thought hopefully she may not need the stent anymore; however, a followup ultrasound showed recurrence of the hydronephrosis and she is now being brought in for management of the same. COMPLICATIONS: None. OPERATIVE FINDINGS: Complete occlusion of right distal ureter with possible associated erosion of abscess into right ureter with no lumen identified. POSTOPERATIVE CONDITION: Stable. DESCRIPTION OF PROCEDURE: After induction of general anesthesia, the patient was placed in dorsal lithotomy position. Sequential compression devices were in place and functioning. The bladder was examined. There was no evidence of any bladder lesions noted. A guidewire was introduced into the right ureteral orifice. After a centimeter or so, the wire would not advance proximally and kept coiling in what appeared to be a dilated segment. An ureteroscope was introduced and to me it appears that there was erosion most likely of the abscess into the right ureter and I could not visualize any true lumen at all. Multiple attempts using a hydrophilic Glidewire were also unsuccessful and I could not see any progression of contrast proximally. At this point, I decided to stop any further attempts and the plan is to arrange for her to have a nephrostomy tube placed in the next 12 to 24 hours in order to drain the right kidney. [id number]/[facility] #: [id number] MTDD
== END | disposition home or self-care (01) ==
LOC: OR 15:05
PROVIDERS: ATTEND Urology
DX: N13.1 Hydronephrosis with ureteral stricture, not elsewhere classified (principal); N73.8 Other specified female pelvic inflammatory diseases; C19 Malignant neoplasm of rectosigmoid junction; C79.51 Secondary malignant neoplasm of bone; D64.9 Anemia, unspecified
CPT/HCPCS: 74420; A9270-GY; J1100; J1580; J1956; J2250; J2704; J3010

== ENCOUNTER 2017-10-27 11:18 | Observation (INO) | payer BC ==
[2017-10-27] MEDS ORDERED: Acetaminophen TAB* 325 MG PO PRN (12:44)
[2017-10-27] MEDS ORDERED: oxyCODONE/Acetamin 5/325 MG* TAB PO PRN (12:44)
[2017-10-27] MEDS ORDERED: NS 0.9% 1000 ML* 1,000 ML IV SCH (12:45)
[2017-10-27] MEDS ORDERED: Naproxen TAB* 375 MG PO PRN (12:48)
[2017-10-27] MEDS ORDERED: Senna TAB PO PRN (12:48)
[2017-10-27] MEDS ORDERED: HYDROmorphone TAB* 2 MG PO PRN (12:48)
[2017-10-27] MEDS: Morphine VIAL* 4 MG/ML VIAL (1 ml vial) IV PRN ×2 (14:09→19:24)
[2017-10-27] MEDS ORDERED: Morphine VIAL* 4 MG/ML VIAL (1 ml vial) IV ONE (14:43)
[2017-10-27] MEDS ORDERED: oxyCODONE SR TAB(*) 40 MG TAB.SR PO ONE (14:45)
--- NOTE | 2017-10-27 16:19 | RAD ---
INDICATION: Evaluate right kidney post nephrostomy tube placement COMPARISON: Renal sonogram October 24, 2017 TECHNIQUE: Longitudinal and transverse scans of the right renal fossa were obtained. FINDINGS: Right kidney: There is interval decompression of the right kidney post nephrostomy tube placement. The right kidney measures 12.9 x 3.8 x 4.1 cm. There is a large, complex, perinephric collection predominantly located lateral to the kidney measured at 13.5 x 9.0 x 8.2 cm. This is consistent with a perinephric hematoma. IMPRESSION: INTERVAL DECOMPRESSION OF THE RIGHT KIDNEY. PERINEPHRIC HEMATOMA. Findings called to surgical short stay and discussed with the patient's nurse (Karen) at 1615 hours
[2017-10-27 16:22] LABS: ABS Basophils 0 10^3/ul (0-0.2); ABS Eosinophils 0.1 10^3/ul (0-0.6); ABS Lymphocytes 0.7 10^3/ul (1.0-4.8); ABS Monocytes 1.1 10^3/ul (0-0.8); ABS Neutrophils 9.3 10^3/ul (1.5-7.7); ABS Nucleated RBC 0 10^3/ul; Eosinophil % 0.5 % (0-6); Hematocrit 26 % (35-47); Hemoglobin 8.6 g/dl (12.0-16.0); Lymphocyte % 6.4 % (25-47); Mean Corpuscular HGB Conc 33 g/dl (31-36); Mean Corpuscular Hemoglobin 28 pg (27-31); Mean Corpuscular Volume 83 fL (80-97); Nucleated Red Blood Cells % 0; Platelet Count 198 10^3/ul (150-450); Red Blood Count 3.11 10^6/ul (4.00-5.40); Red Cell Distribution Width 19 % (10.5-15); White Blood Count 11.1 10^3/ul (3.5-10.8)
--- NOTE | 2017-10-27 18:50 | PN ---
Progress Note - Progress Note Date of Service: 10/27/17 SOAP: The patient has developed a right side perinephric hematoma after US & fluoroscopy guided percutaneous nephrostomy catheter placement. Subjective: 8/10 right flank pain. No nausea or lighheadedness currently. Objective: Selected Entries 10/27/17 14:34 Temperature 99.5 F Pulse Rate 66 Blood Pressure 122/65 (mmHg) Mild distress, AAO x 3 PCN bag with "fruit punch" urine in bag. Dressing is CDI Patient Name: CRIS BA Medical Record#: [id number] Ordering Physician: Jose Mahan MD Acct.#: [id number] : 1960 Age: 56 Sex: F Location: SURGICAL STAY UNIT Exam Date: 10/27/171517 ADM Status: ADM Fernanda Order Information: US RENAL LIMITED RIGHT Accession Number: [id number] CPT: 44167 INDICATION: Evaluate right kidney post nephrostomy tube placement COMPARISON: Renal sonogram October 24, 2017 TECHNIQUE: Longitudinal and transverse scans of the right renal fossa were obtained. FINDINGS: Right kidney: There is interval decompression of the right kidney post nephrostomy tube placement. The right kidney measures 12.9 x 3.8 x 4.1 cm. There is a large, complex, perinephric collection predominantly located lateral to the kidney measured at 13.5 x 9.0 x 8.2 cm. This is consistent with a perinephric hematoma. IMPRESSION: INTERVAL DECOMPRESSION OF THE RIGHT KIDNEY. PERINEPHRIC HEMATOMA. Findings called to surgical short stay and discussed with the patient's nurse ( Karen) at 1615 hours <Electronically signed by Ernesto Vallejo MD in OV> 10/27/171615 Dictated By: Ernesto Vallejo MD Dictated Date/Time: 10/27/171615 Transcribed Date/Time: 10/27/17 1607 Copy to: CC:Rakesh LARSON; Herman LARSON; Aparna Andrade MD; Jose Mahan MD Imaging - [facility] [id number] [place] [id number] [place] [id number] ph ([phone]) ph ([phone]) ph ([phone]) 1 of Assessment: 56 YOF with perinephric hematoma status post right PCN placement this morning. Plan: 1. Transfer to [facility]. 2. I have spoken to Dr. Navarro, the IR stone driller helper, and provided him with a report of the procedure and subsequent hematoma. 3. Currently the patient appears to be hemodynamically stable. The PCN appears to be producing urine. It is my hope that the hematoma has tamponaded the bleed and no arterial embolization will be necessary. I have discussed the case with Mrs. Ba and her Fermin and encouraged them to contact me and/or our department at any time.
--- NOTE | 2017-10-27 18:58 | TRS ---
CC: MARSHA Mullins; Jasper Zee MD; Addy Rodgers MD * ADMISSION HISTORY AND PHYSICAL/TRANSFER SUMMARY: DATE OF ADMISSION: 10/27/17 DATE OF DISCHARGE: 10/27/17 ACCEPTING FACILITY: [facility]. ACCEPTING PHYSICIAN: Dr. Sykes hospitalist. PRIMARY CARE PROVIDER: MARSHA Mullins PRIMARY ONCOLOGIST: Jasper Zee MD ATTENDING PHYSICIAN: Aparna Andrade MD * (DICTATED BY MARSHA LEONARD) INTERVENTIONAL RADIOLOGIST: Addy Rodgers MD DISCHARGING PROVIDER: MARSHA Leonard PRIMARY DISCHARGE DIAGNOSES: 1. Perinephric hematoma status post right percutaneous nephrostomy tube placement. 2. Hypovolemic syncope due to acute blood loss. SECONDARY DISCHARGE DIAGNOSES: 1. History of recurrent rectal cancer with no evidence of active disease, not on current therapy, status post salvage resection in January [address] in the left lower quadrant. 2. Recurrent pelvic abscess, currently on suppressive antibiotics with moxifloxacin and linezolid. DISCHARGE MEDICATIONS: 1. Acetaminophen 650 mg p.o. q.8 hours as needed for pain. 2. Dilaudid 2 mg p.o. q.6 hours as needed for pain. 3. Linezolid 600 mg p.o. twice daily. 4. Moxifloxacin 400 mg p.o. daily. 5. OxyContin 80 mg p.o. twice daily. 6. Senna 1 tablet p.o. daily as needed for constipation. HOSPITAL IMAGING: Renal ultrasound shows interval decompression of the right kidney with perinephric hematoma. HOSPITAL COURSE: This is a 56-year-old female with history of recurrent rectal cancer status post salvage resection in January 2017, who has had multiple complications including recurrent pelvic abscess and hydronephrosis. The patient had her right ureteral stent removed by urologist, Dr. Martinez, approximately 1 week ago. Unfortunately, repeat renal ultrasound demonstrated reaccumulation of right hydronephrosis and reinsertion of the right ureteral stent was attempted, but unable to pass through the distal ureter. Recommendations were made for a percutaneous nephrostomy tube placement which was completed by interventional radiologist, Dr. Addy Rodgers earlier today. The patient tolerated the procedure relatively well. No complications were noted, but the patient was complaining of significant amounts of pain postprocedure. She then sat up in bed and experienced a syncopal episode perhaps with some convulsive type features. She was initially hypotensive and quickly recovered without any changes to mental status. An ultrasound of the right kidney was performed which demonstrated a rather large perinephric hematoma that had accumulated in the area. Hemoglobin completed postprocedure was 8.6 g/dL, preprocedure which was done just over 2 weeks ago was 10.9 g/dL. Renal function and electrolytes were unremarkable and the patient was otherwise hemodynamically stable. I spoke with Dr. Addy Rodgers regarding appropriate management for perinephric hematoma post percutaneous nephrostomy tube placement and he recommended transfer to a tertiary center where urgent embolization could be completed if there was evidence of continuous bleeding. Spoke with hospitalist, Dr. Sykes from [facility], who accepted the patient in transfer. Dr. Addy Rodgers contacted interventional radiologist, Dr. Navarro apron operator regarding the case. DISPOSITION: The patient is being transferred via ambulance to [facility] for a likely embolization of right perinephric hematoma. The patient has been ordered 1 unit of packed red blood cells for infusion prior to transfer. MARSHA LEONARD [id number]/[facility] #: [id number] [place]
[2017-10-27 19:30] VITALS: BP 124/77
[2017-10-27] MEDS ORDERED: Linezolid TAB* 600 MG PO SCH (21:00)
[2017-10-27] MEDS ORDERED: oxyCODONE SR TAB(*) 40 MG TAB.SR PO SCH (21:00)
[2017-10-28] MEDS ORDERED: MOXIFLOXACIN 400 MG PO SCH (09:00)
== END 2017-10-27 20:05 | disposition short-term general hospital (02) ==
LOC: SSU 12:53
PROVIDERS: ADMIT Internal Medicine Hematology & Oncology; ATTEND Internal Medicine Hematology & Oncology
DX: N13.30 Unspecified hydronephrosis (principal); Z88.0 Allergy status to penicillin; Z88.8 Allergy status to other drugs, medicaments and biological substances; N99.840 Postprocedural hematoma of a genitourinary system organ or structure following a genitourinary system procedure; R10.9 Unspecified abdominal pain; I45.10 Unspecified right bundle-branch block
CPT/HCPCS: 36415; 76775; 80053; 85025; 86850; 86900; 86901; 86922; 96374; 96375; 96376; A9270-GY; G0378; J2270

== ENCOUNTER 2018-07-09 22:33 | Emergency (ER) | payer BC, OTHER ==
[2018-07-09] MEDS ORDERED: Metoclopramide IV* 5 MG/ML 2 ML VIAL IV SLOW PU ONE (22:57)
[2018-07-09] MEDS ORDERED: fentaNYL* 50 MCG/ML 2 ML VIAL (100 MCG VIAL) IV SLOW PU ONE (22:57)
[2018-07-09] MEDS ORDERED: fentaNYL* 50 MCG/ML 2 ML VIAL (100 MCG VIAL) ONE (22:58)
[2018-07-09] MEDS ORDERED: Metoclopramide IV* 5 MG/ML 2 ML VIAL ONE (22:58)
--- NOTE | 2018-07-09 23:20 | ED ---
GI/ HPI - HPI Summary HPI Summary: The patient is 57 year old female who is presenting to the [facility] with complaints of abd pain and back pain. The pain is located in the lower back and the lower abd region. The patient has a nephrostomy tube and believes that the tube may be blocked as much of the pain resonates near that area (right sided abd pain and lower back pain). The tube has not been draining for one hour as per patient report. The patient was hoping to receive all treatment necessary at the [facility]. The pain is stated to be a constant pain and the nephrostomy bag is empty. The pain is rated to be 10/10 in severity and the symptoms are alleviated by nothing and aggravated by nothing. - History of Current Complaint Chief Complaint: EDUrogenitalProblems Time Seen by Provider: 07/09/18 22:44 Stated Complaint: "NEPHROSTOMY TUBE BLOCKED"PT Timing: Constant Pain Intensity: 10 Associated Signs and Symptoms: Positive: Other: - Abd pain and back pain Aggravating Factor(s): Nothing Alleviating Factor(s): Nothing - Additional Pertinent History Primary Care Physician: JERRY - Allergy/Home Medications Allergies/Adverse Reactions: Allergies Allergy/AdvReac Type Severity Reaction Status Date / Time hydrocodone Allergy Intermediate Unknown Verified 07/09/18 22:37 Reaction Details metronidazole Allergy Intermediate Hives Verified 07/09/18 22:37 Adhesive Tape [Paper Tape] Allergy Mild Itching Verified 07/09/18 22:37 tramadol Allergy Unknown Unknown Verified 07/09/18 22:37 Reaction Details morphine AdvReac Mild Headache Verified 07/09/18 22:37 Penicillins AdvReac Unknown Unknown Verified 07/09/18 22:37 Reaction Details PMH/Surg Hx/FS Hx/Imm Hx Endocrine/Hematology History: Denies: Hx Diabetes, Hx Systemic Lupus Erythematosus Cardiovascular History: Denies: Hx Congestive Heart Failure, Hx Hypertension, Hx Pacemaker/ICD Respiratory History: Denies: Hx Asthma GI History: Reports: Hx Diverticulosis, Hx Ileostomy, Other GI Disorders - colon ca with colostomy History: Reports: Other Problems/Disorders - Nephrostomy tube placement Denies: Hx Dialysis, Hx Renal Disease Musculoskeletal History: Reports: Hx Back Problems - piece of tailbone removed Denies: Hx Arthritis, Hx Rheumatoid Arthritis Sensory History: Reports: Hx Cataracts - left eye, Hx Contacts or Glasses Denies: Hx Hearing Aid Opthamlomology History: Reports: Hx Cataracts - left eye, Hx Contacts or Glasses Neurological History: Reports: Hx Headaches - IN THE PAST Psychiatric History: Denies: Hx Panic Disorder - Cancer History Cancer Type, Location and Year: COLON Hx Chemotherapy: Yes Hx Radiation Therapy: Yes - November 2016 - Surgical History Surgery Procedure, Year, and Place: tubal ligation 33 yrs ago. carpal tunnel 30 yrs ago. Colectomy w/colostomy (2014). Colon CA removal- and portion of tailbone and tissue (02/11/17) Hx Anesthesia Reactions: No Infectious Disease History: No Infectious Disease History: Denies: Traveled Outside the [place] in Last 30 Days - Family History Known Family History: Positive: Unknown - The pt denies fhx. , Non-Contributory Negative: Renal Disease - Social History Alcohol Use: None Hx Substance Use: No Substance Use Type: Reports: None Hx Tobacco Use: No Smoking Status (MU): Never Smoked Tobacco Have You Smoked in the Last Year: No Review of Systems Constitutional: Negative Eyes: Negative ENT: Negative Cardiovascular: Negative Respiratory: Negative Positive: Abdominal Pain Genitourinary: Other - pain at the location of the nephrostomy tube Musculoskeletal: Other - Lower back pain Skin: Negative Neurological: Negative Psychological: Normal All Other Systems Reviewed And Are Negative: Yes Physical Exam - Summary Physical Exam Summary: VITAL SIGNS: Reviewed. GENERAL: Patient is a well-developed and nourished (FEMALE) who is lying comfortable in the stretcher. Patient is not in any acute respiratory distress. HEAD AND FACE: No signs of trauma. No ecchymosis, hematomas or skull depressions. No sinus tenderness. EYES: PERRLA, EOMI x 2, No injected conjunctiva, no nystagmus. EARS: Hearing grossly intact. Ear canals and tympanic membranes are within normal limits. MOUTH: Oropharynx within normal limits. NECK: Supple, trachea is midline, no adenopathy, no JVD, no carotid bruit, no c- spine tenderness, neck with full ROM. CHEST: Symmetric, no tenderness at palpation LUNGS: Clear to auscultation bilaterally. No wheezing or crackles. CVS: Regular rate and rhythm, S1 and S2 present, no murmurs or gallops appreciated. ABDOMEN: Nephrostomy tube on the right side; The urine bag is empty at this time. EXTREMITIES: FROM in all major joints, no edema, no cyanosis or clubbing. NEURO: Alert and oriented x 3. No acute neurological deficits. Speech is normal and follows commands. SKIN: Dry and warm Triage Information Reviewed: Yes Vital Signs On Initial Exam: Initial Vitals Temp Pulse Resp BP Pulse Ox 99.1 F 80 22 166/82 96 07/09/18 22:35 07/09/18 22:35 07/09/18 22:35 07/09/18 22:35 07/09/18 22:35 Vital Signs Reviewed: Yes Diagnostics - Vital Signs Vital Signs Temp Pulse Resp BP Pulse Ox 07/09/18 23:01 24 07/09/18 22:35 99.1 F 80 22 166/82 96 - Laboratory Lab Statement: Any lab studies that have been ordered have been reviewed, and results considered in the medical decision making process. GIGU Course/Dx - Course Course Of Treatment: The patient is 57 year old female who is presenting to the [facility] with complaints of abd pain and back pain. The patient believes the pain is due to the nephrostomy tube is blocked. The patient needs an IR which the [facility] does not have at this time. She will be transferred to [facility] and is pending transfer disposition. Patient has a history reoccurant rectal cancers. She has a right sided nephrostomy tube. No drainage from Nephrostomy tube for the last hour and the patient is in severe pain. Transfer process intiated at 2320. She is being medicated for her pain. We had attempted to flush the nephrostomy tube and with normal saline and and nothing happened. We discussed patient care with Dr. Jeffers at [facility] at 2230 and she agrees to the transfer. The dx will be nephrostomy tube complication and the patient will be transferred to [facility] for further treatment. - Diagnoses Provider Diagnoses: Nephrostomy complication Discharge - Sign-Out/Discharge Documenting (check all that apply): Patient Departure - Transfer to [facility] Patient Received Moderate/Deep Sedation with Procedure: No - Discharge Plan Condition: Stable Disposition: TRANS HIGHER LVL OF CARE FAC Referrals: Herman Cortes JR PA [Primary Care Provider] - - Billing Disposition and Condition Condition: STABLE Disposition: Trans Higher Lvl of Care Fac - Attestation Statements Document Initiated by Scribe: Yes Documenting Scribe: Gagandeep López Provider For Whom Scribe is Documenting (Include Credential): Dr. Peggy More Scribe Attestation: I, Gagandeep López, scribed for Dr. Peggy More on 07/09/18 at 2337. Scribe Documentation Reviewed: Yes Provider Attestation: The documentation as recorded by the Gagandeep lepe accurately reflects the service I personally performed and the decisions made by me, Dr. Peggy More Status of Scribe Document: Viewed
[2018-07-10 00:13] LABS: Activated Partial Thrombo Time 33.1 seconds (26.0-36.3); INR 0.93 (0.77-1.02)
[2018-07-10 00:19] LABS: ABS Basophils 0.1 10^3/ul (0-0.2); ABS Eosinophils 0.3 10^3/ul (0-0.6); ABS Lymphocytes 1.5 10^3/ul (1.0-4.8); ABS Monocytes 0.8 10^3/ul (0-0.8); ABS Neutrophils 6.8 10^3/ul (1.5-7.7); ABS Nucleated RBC 0 10^3/ul; Eosinophil % 2.8 %; Hematocrit 32 % (35-47); Hemoglobin 10.6 g/dl (12.0-16.0); Lymphocyte % 16.1 %; Mean Corpuscular HGB Conc 33 g/dl (31-36); Mean Corpuscular Hemoglobin 25 pg (27-31); Mean Corpuscular Volume 75 fL (80-97); Mean Platelet Volume 7.6 fL (7.4-10.4); Nucleated Red Blood Cells % 0; Platelet Count 350 10^3/ul (150-450); Red Blood Count 4.33 10^6/ul (4.00-5.40); Red Cell Distribution Width 16 % (10.5-15); White Blood Count 9.5 10^3/ul (3.5-10.8)
[2018-07-10 00:21] LABS: Albumin 3.9 g/dL (3.2-5.2); Albumin/Globulin Ratio 1.3 (1-3); BUN/Creatinine Ratio 14.7 (8-20); Calcium 9.1 mg/dL (8.6-10.3); EGFR African American 95.7 (>60); EGFR Non-African American 79.1 (>60); Potassium 3.1 mmol/L (3.5-5.0); Total Bilirubin 0.6 mg/dL (0.2-1.0); Total Protein 6.9 g/dL (6.4-8.9)
[2018-07-10 00:36] VITALS: BP 166/86
[2018-07-10] MEDS ORDERED: fentaNYL* 50 MCG/ML 2 ML VIAL (100 MCG VIAL) IV SLOW PU ONE (00:41)
== END 2018-07-10 00:49 | disposition short-term general hospital (02) ==
LOC: ED 22:33
DX: N99.528 Other complication of incontinent external stoma of urinary tract (principal); R10.30 Lower abdominal pain, unspecified; M54.5 Low back pain; Z85.038 Personal history of other malignant neoplasm of large intestine; Z88.1 Allergy status to other antibiotic agents; Z88.5 Allergy status to narcotic agent; Z88.0 Allergy status to penicillin; Z91.048 Other nonmedicinal substance allergy status
CPT/HCPCS: 36415; 80053; 85025; 85610; 85730; 96374; 96375; 96376; 99284; J2765; J3010

== ENCOUNTER 2019-05-04 15:14 | Emergency (ER) | payer OTHER ==
[2019-05-04] MEDS ORDERED: diPHENhydraMINE PO* 25 MG PO ONE (15:49)
--- NOTE | 2019-05-04 16:12 | ED ---
Allergic Reaction/Systemic - HPI Summary HPI Summary: 58-year-old female with a significant past medical history of diabetes, SLE, congestive heart failure, hypertension, pacemaker with ICD placement, diverticulosis, ileostomy, colon cancer with colostomy, nephrostomy tube placement presents to emergency department today with what she believes is an allergic reaction. Patient states that she was recently started on Bactrim for a possible UTI by her primary care provider. Patient states shortly after having Bactrim she developed shakiness and the itchy rash on her face, arms, chest, legs, back. Patient states her tongue also felt numb and her head was "stuffy". Patient took "for kids doses of Benadryl and 4 g of dexamethasone by mouth prior to arrival. Patient currently denies pruritus but does have multiple flat erythematous macules suggestive of a rash. Patient denies shortness of breath, trouble breathing, trouble managing secretions or other airway involvement. Patient denies fever, chest pain, abdominal pain, shortness of breath but endorses genitourinary symptoms such as increased frequency, urgency, pain with urination. Family history and social history noncontributory. - History of Current Complaint Chief Complaint: EDAllergicReaction Time Seen by Provider: 05/04/19 15:32 Hx Obtained From: Patient Onset/Duration: Sudden Onset Timing: Lasting Minutes Severity Initially: Moderate Severity Currently: Mild Pain Intensity: 5 Pain Scale Used: 0-10 Numeric Associated Signs And Symptoms: Positive: Rash. Negative: Abdominal Pain, Chest Pain, Cough Wheezing, Diaphoresis, Difficulty Breathing, Hoarseness, Nausea, Throat Tightening - Related Hx Possible Reaction To: Medications - Bactrim - Allergies/Home Medications Allergies/Adverse Reactions: Allergies Allergy/AdvReac Type Severity Reaction Status Date / Time hydrocodone Allergy Intermediate Unknown Verified 04/10/19 16:05 Reaction Details metronidazole Allergy Intermediate Hives Verified 04/10/19 16:05 Adhesive Tape [Paper Tape] Allergy Mild Itching Verified 04/10/19 16:05 Sulfa (Sulfonamide Allergy Rash And Verified 05/04/19 15:25 Antibiotics) Itching Penicillins AdvReac Unknown Unknown Verified 04/10/19 16:05 Reaction Details Home Medications: Home Medications Morphine TAB Extended Rel(*) [Ms Contin(*)] 15 mg PO Q8HR PRN 05/04/19 [History Confirmed 05/04/19] Sulfamethox/Trimethoprim DS* [Bactrim DS 800/160 TAB*] 1 tab PO BID 05/04/19 [ History Confirmed 05/04/19] PMH/Surg Hx/FS Hx/Imm Hx Endocrine/Hematology History: Denies: Hx Diabetes, Hx Systemic Lupus Erythematosus Cardiovascular History: Denies: Hx Congestive Heart Failure, Hx Hypertension, Hx Pacemaker/ICD Respiratory History: Denies: Hx Asthma GI History: Reports: Hx Diverticulosis, Hx Ileostomy, Other GI Disorders - colon ca with colostomy History: Reports: Other Problems/Disorders - Nephrostomy tube placement Denies: Hx Dialysis, Hx Renal Disease Musculoskeletal History: Reports: Hx Back Problems - piece of tailbone removed Denies: Hx Arthritis, Hx Rheumatoid Arthritis Sensory History: Reports: Hx Cataracts - left eye, Hx Contacts or Glasses Denies: Hx Hearing Aid Opthamlomology History: Reports: Hx Cataracts - left eye, Hx Contacts or Glasses Neurological History: Reports: Hx Headaches - IN THE PAST Psychiatric History: Denies: Hx Panic Disorder - Cancer History Cancer Type, Location and Year: COLON Hx Chemotherapy: Yes Hx Radiation Therapy: Yes - November 2016 - Surgical History Surgery Procedure, Year, and Place: tubal ligation 33 yrs ago. carpal tunnel 30 yrs ago. Colectomy w/colostomy (2014). Colon CA removal- and portion of tailbone and tissue (02/11/17) Hx Anesthesia Reactions: No - Immunization History Date of Influenza Vaccine: none Infectious Disease History: No Infectious Disease History: Denies: Traveled Outside the [place] in Last 30 Days - Family History Known Family History: Positive: Unknown - The pt denies fhx. , Non-Contributory Negative: Renal Disease - Social History Alcohol Use: None Hx Substance Use: No Substance Use Type: Reports: None Hx Tobacco Use: No Smoking Status (MU): Never Smoked Tobacco Have You Smoked in the Last Year: No Review of Systems Constitutional: Negative Eyes: Negative ENT: Negative Cardiovascular: Negative Respiratory: Negative Gastrointestinal: Negative Positive: burning, dysuria, frequency, pain, urgency Musculoskeletal: Negative Positive: Rash. Negative: Bruising Neurological: Negative Psychological: Normal All Other Systems Reviewed And Are Negative: Yes Physical Exam - Summary Physical Exam Summary: Patient has colostomy which appears healthy with no evidence of induration or erythema surrounding the stoma. Patient also has urostomy in place which appears healthy. Patient has a mild diffuse macular flat erythematous rash on the upper extremities bilaterally, trunk and lower extremities. Triage Information Reviewed: Yes Vital Signs On Initial Exam: Initial Vitals Temp Pulse Resp BP Pulse Ox 100.1 F 96 20 115/68 99 05/04/19 15:17 05/04/19 15:17 05/04/19 15:17 05/04/19 15:17 05/04/19 15:17 Vital Signs Reviewed: Yes Appearance: Positive: Well-Appearing, No Pain Distress, Well-Nourished Skin: Positive: Warm, Skin Color Reflects Adequate Perfusion Eyes: Positive: EOMI, LYNETTE ENT: Positive: Hearing grossly normal Respiratory/Lung Sounds: Positive: Clear to Auscultation, Breath Sounds Present Cardiovascular: Positive: RRR, S1, S2 Abdomen Description: Positive: Soft, Other:. Negative: Nontender - Tenderness to palpation of the suprapubic region Bowel Sounds: Positive: Present Musculoskeletal: Positive: Strength/ROM Intact Neurological: Positive: Sensory/Motor Intact, Alert, Oriented to Person Place, Time, Normal Gait, Speech Normal Psychiatric: Positive: Normal AVPU Assessment: Alert Procedures - Sedation Patient Received Moderate/Deep Sedation with Procedure: No Diagnostics - Vital Signs Vital Signs Temp Pulse Resp BP Pulse Ox 05/04/19 15:51 98.1 F 05/04/19 15:43 86 134/73 99 05/04/19 15:40 84 98 05/04/19 15:17 100.1 F 96 20 115/68 99 - Laboratory Result Diagrams: 05/04/19 16:27 05/04/19 16:27 Lab Statement: Any lab studies that have been ordered have been reviewed, and results considered in the medical decision making process. Allergic Reaction Course/Dx - Course Course Of Treatment: Patient was evaluated in the emergency department today for allergic reaction. Upon arrival to the emergency department patient was only complaining of mild symptoms. She is given 25 mg of Benadryl and she took 4mg of dexamethasone by mouth and a low dose of Benadryl prior to arrival. Labs were done which showed Leukocytosis with a white count of 12.3. No significant electrolyte abnormalities. urinalysis returned with a mixed picture due to evidence of contamination. Patient will be treated with Keflex due to being symptomatic for UTI. Patient is to discontinue taking Bactrim as it appears she has an allergic reaction in the form of a rash. Patient is to follow-up with her primary care provider in 3 days for further evaluation and management. - Diagnoses Provider Diagnoses: Allergic reaction caused by a drug Discharge ED - Sign-Out/Discharge Documenting (check all that apply): Patient Departure - Discharge Plan Condition: Stable Disposition: HOME Prescriptions: Cephalexin CAP* [Keflex CAP*] 500 mg PO QID #28 cap Patient Education Materials: General Allergic Reaction (ED) Referrals: Herman Cortes JR, PA [Primary Care Provider] - 3 Days Additional Instructions: Nursing in the emergency department today due to an allergic reaction to Bactrim. It appears this is a minor reaction and not anaphylaxis which is an allergic reaction compromising your airway. Please continue to take Benadryl 50 mg daily for 5 days to reduce chance of rebound reaction. - Billing Disposition and Condition Condition: STABLE Disposition: Home - Attestation Statements Provider Attestation: I was available for consult. This patient was seen by the G[facility]. The patient was not presented to, seen by, or examined by me. Ian Schuler MD
[2019-05-04 16:44] LABS: Hematocrit 36 % (35-47); Hemoglobin 11.5 g/dL (12.0-16.0); Mean Corpuscular HGB Conc 32 g/dL (31-36); Mean Corpuscular Hemoglobin 23 pg (27-31); Mean Corpuscular Volume 71 fL (80-97); Mean Platelet Volume 7.7 fL (7.4-10.4); Platelet Count 351 10^3/uL (150-450); Red Blood Count 4.97 10^6 /uL (3.70-4.87); Red Cell Distribution Width 17 % (10-15); White Blood Count 12.3 10^3/uL (3.5-10.8)
[2019-05-04 16:51] LABS: Albumin/Globulin Ratio 1.3 (1-3); BUN/Creatinine Ratio 17.6 (8-20); Calcium 9.4 mg/dL (8.6-10.3); EGFR African American 106.8 (>60); EGFR Non-African American 88.3 (>60); Globulin 3.1 g/dL (2-4); Potassium 3.8 mmol/L (3.5-5.0); Total Protein 7.1 g/dL (6.4-8.9)
[2019-05-04 17:03] LABS: ABS Basophils 0.1 10^3/ul (0-0.2); ABS Lymphocytes 0.8 10^3/ul (1.0-4.8); ABS Monocytes 0.5 10^3/ul (0-0.8); ABS Neutrophils 10.9 10^3/ul (1.5-7.7); Eosinophil % 0.2 %; Lymphocyte % 6.4 %
[2019-05-04 17:06] LABS: Urine Appearance Cloudy; Urine Bilirubin Negative (Negative); Urine Blood Negative (Negative); Urine Color Yellow; Urine Glucose Negative (Negative); Urine Ketones Negative (Negative); Urine Nitrite Negative (Negative); Urine Protein 1+(30 mg/dL) (Negative); Urine Specific Gravity 1.002 (1.010-1.030); Urine Urobilinogen Negative (Negative)
[2019-05-04 17:17] LABS: Urine Bacteria 1+ (Absent); Urine Red Blood Cell 1+(3-5/hpf) (Absent); Urine Squamous Epithelial Cell Present (Absent); Urine Transitional Epithelial Present (Absent); Urine White Blood Cell 3+(>20/hpf) (Absent)
[2019-05-04] MEDS ORDERED: Cephalexin CAP* 500 MG PO ONE (17:22)
[2019-05-04 18:45] VITALS: BP 132/81
== END 2019-05-04 18:46 | disposition home or self-care (01) ==
LOC: ED 15:14
DX: L27.0 Generalized skin eruption due to drugs and medicaments taken internally (principal); R25.1 Tremor, unspecified; R20.0 Anesthesia of skin; T36.8X5A Adverse effect of other systemic antibiotics, initial encounter; Y92.9 Unspecified place or not applicable; N39.0 Urinary tract infection, site not specified; Z93.3 Colostomy status; Z93.6 Other artificial openings of urinary tract status; Z88.1 Allergy status to other antibiotic agents; Z88.5 Allergy status to narcotic agent; Z88.0 Allergy status to penicillin; Z88.2 Allergy status to sulfonamides; Z91.048 Other nonmedicinal substance allergy status
CPT/HCPCS: 36415; 80053; 81003; 81015; 85025; 87086; 99282; A9270-GY

== ENCOUNTER 2019-08-03 10:26 | Inpatient (IN) | payer BC ==
--- OUTSIDE RECORDS SUMMARY | 2019-08-03 10:42 | XMS REPORT | Continuity of Care Document ---
:1960 External Reference #:[id number] Author Name Norman Marti MD (transmitted by agent of provider Eun Schrader) Address [address] [place] [id number] Care Team Providers Name Role Phone Herman Cortes PA - Physician Care Team Information Cost Accounting Manager [phone] Ostrich Farmer Aparna Garza MD - Hematology & Care Team Information Cost Accounting Manager [phone] Oncology Jasper Zee M.D. 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 Sherlyn Maguire DO Onset: 10/09/2017 Urinary tract infectious disease Sherlyn Maguire DO Onset: 10/09/2017 Cellulitis Sherlyn Maguire DO Onset: 10/09/2017 Malignant tumor of rectum Sherlyn Maguire DO Onset: 10/09/2017 Social History Type Date Description Comments Sex Unknown ETOH Use Denies alcohol use Tobacco Use Start: Unknown Patient has never smoked Recreational Drug Use Denies Drug Use Smoking Status Reviewed: 07/05/19 Patient has never smoked Exercise Type/Frequency Does not exercise Allergies, Adverse Reactions, Alerts Active Allergies Reaction Severity Comments Date Penicillin 02/24/2017 Tramadol 02/24/2017 Acetaminophen / Hydrocodone 02/24/2017 Metronidazole Urticaria 07/07/2017 Flagyl 07/05/2019 Bactrim 07/05/2019 Medications Active Medications SIG Qnty Indications Ordering Provider Date Linezolid one by mouth 60tabs Luis Miguel Galloway, 07/18/2017 600mg Tablets twice a day M.D. Oxycodone HCL Take 1 Tablet Unknown 10mg Every 4 Hours Tablets Oxycodone HCL ER 1 by mouth twice Unknown 80mg a day Tab ER 12H Abuse-Det Senna 1 by mouth as Unknown 8.6mg Tablets needed Morphine Sulfate ER take one tablet Unknown by mouth every 12 100mg Tablets ER hours as directed maximum daily dose 2 Movantik Take 1 Tablet By Unknown 25mg Tablets Mouth Every Day as Needed For 30 Days Immunizations Description No Information Available Vital Signs Date Vital Result Comment 07/05/2019 3:28pm Weight 180.00 lb Heart Rate 72 /min BP Systolic 114 mmHg BP Diastolic 62 mmHg Respiratory Rate 16 /min Body Temperature 99.5 F 01/16/2018 2:44pm Height 65 inches 5'5" Weight 162.00 lb Heart Rate 72 /min BP Systolic Sitting 138 mmHg BP Diastolic Sitting 66 mmHg Respiratory Rate 14 /min Body Temperature 98.6 F BMI (Body Mass Index) 27.0 kg/m2 Results Description No Information Available Procedures Description No Information Available Medical Devices Description No Information Available Encounters Type Date Location Provider Dx Diagnosis Office Visit 07/05/2019 [facility] Norman Vallejo Malignant neoplasm 3:00p Of Pamela Marti MD of rectum Office Visit 06/15/2019 [facility] Genevieve Schreiber Malignant neoplasm 11:40a Of [facility] [place] [place] of rectum G62.9 Polyneuropathy, unspecified 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 06/15/2019 G62.9 Polyneuropathy, unspecified Jasper Zee M.D. 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 06/15/2019 M46.28 Osteomyelitis of vertebra, sacral and Jasper Zee M.D. sacrococcygeal region 06/15/2019 N82.1 Other female urinary-genital tract fistulae Jasper Zee M.D. 06/15/2019 Z96.0 Presence of urogenital implants Jasper Zee M.D. Plan of Treatment 07/05/2019 - Norman Marti, MDC20 Malignant neoplasm of rectumComments: Intermittent abdominal pain cramping and dysfunction with ostomy likely secondary to hernia and adhesions among other things. She is not a great candidate for surgical intervention however she has been stable from the standpoint of her malignancy and if need be she could have surgery. we discussed surgical risks which she is well aware of is she has had a very complicated course. At this point continue on her current regimen, more supine positioning after eating to see if this helps. Continue her current medication regimen. I will review the CT scan. She will call if this is getting worse orif this becomes severe and persistent she may need hospitalization. She is in agreement with the treatment plans and all questions were answered Functional Status Description No Information Available Mental Status Description No Information Available Referrals Description No Information Available
--- OUTSIDE RECORDS SUMMARY | 2019-08-03 10:42 | XMS REPORT | Continuity of Care Document ---
:1960 External Reference #:[id number] Author Name Jasper Zee M.D. (transmitted by agent of provider Manuela Miller) Address [address] [place] [address] Care Team Providers Name Role Phone Herman Cortes PA - Physician Care Team Information Photostatic Copy Maker [phone] Director Electronics Aparna Garza MD - Hematology & Care Team Information Photostatic Copy Maker [phone] Oncology Jasper Zee M.D. 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 G89.29 Other chronic pain K59.00 Constipation, unspecified Z96.0 Presence of urogenital implants Z93.3 Colostomy status Office Visit 06/15/2019 11:40a [facility] Jasper Zee, C20 Malignant Of Coding Spec AT [facility] neoplasm of [place] rectum G62.9 Polyneuropathy, unspecified 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 06/29/2019 G62.9 Polyneuropathy, unspecified Jasper Zee M.D. 06/29/2019 R93.7 Abnormal findings on diagnostic imaging of Jasper Zee M.D. 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 06/29/2019 G89.29 Other chronic pain Jasper Zee M.D. 06/29/2019 K59.00 Constipation, unspecified Jasper Zee M.D. 06/29/2019 Z96.0 Presence of urogenital implants Jasper Zee M.D. 06/29/2019 Z93.3 Colostomy status Jasper Zee M.D. 06/15/2019 C20 Malignant neoplasm of rectum Jasper [...] Plan of Treatment 07/05/2019 [place] [facility] [place] of rectumComments: Intermittent abdominal pain [...]
--- NOTE | 2019-08-03 11:11 | ED ---
Abdominal Pain/Female - HPI Summary HPI Summary: 58-year-old female with a significant past medical history of stage IV colon cancer, status post colostomy, and remission (last treatment 2016) presents to the emergency department today with chief complaint of "my colostomy is blocked. " Patient had colostomy placed in 2013 in [place] but is currently being followed by Dr. Marti [place] [facility] [place] as over the past month she has had mild abdominal pain with mild obstruction of the colostomy. Patient states she has 6 out of 10 pain around her lower abdomen as well as associated nausea and vomiting 2 days. Patient states she believes her emesis tastes like stool. Patient states she is unable to pass gas. Patient is currently in no acute distress denying fever, chest pain, shortness of breath, cough, nasal congestion, sore throat, diarrhea. - History of Current Complaint Chief Complaint: EDAbdPain Stated Complaint: BLOCK CLOSTOMY Time Seen by Provider: 08/03/19 11:11 Hx Obtained From: Patient Onset/Duration: Gradual Onset Timing: Constant Severity Initially: Moderate Severity Currently: Moderate Pain Intensity: 6 Pain Scale Used: 0-10 Numeric Location: Discrete At: RLQ, Discrete At: LLQ Radiates: No Character: Cramping Alleviating Factor(s): Vomiting Associated Signs and Symptoms: Positive: Constipation, Nausea, Vomiting. Negative: Fever, Chest Pain, Diarrhea Allergies/Adverse Reactions: Allergies Allergy/AdvReac Type Severity Reaction Status Date / Time hydrocodone Allergy Intermediate Unknown Verified 04/10/19 16:05 Reaction Details metronidazole Allergy Intermediate Hives Verified 04/10/19 16:05 Adhesive Tape [Paper Tape] Allergy Mild Itching Verified 04/10/19 16:05 Sulfa (Sulfonamide Allergy Rash And Verified 05/04/19 15:25 Antibiotics) Itching sulfamethoxazole Allergy Difficulty Verified 05/25/19 15:56 [From Bactrim] Breathing trimethoprim [From Bactrim] Allergy Difficulty Verified 05/25/19 15:56 Breathing Penicillins AdvReac Unknown Unknown Verified 04/10/19 16:05 Reaction Details Home Medications: Home Medications Morphine TAB Extended Rel(*) [Ms Contin(*)] 15 mg PO Q8HR PRN 05/04/19 [History Confirmed 08/03/19] Gabapentin 600 mg PO TID 08/03/19 [History Confirmed 08/03/19] PMH/Surg Hx/FS Hx/Imm Hx Endocrine/Hematology History: Denies: Hx Diabetes, Hx Systemic Lupus Erythematosus Cardiovascular History: Denies: Hx Congestive Heart Failure, Hx Hypertension, Hx Pacemaker/ICD Respiratory History: Denies: Hx Asthma GI History: Reports: Hx Diverticulosis, Hx Ileostomy, Other GI Disorders - colon ca with colostomy History: Reports: Other Problems/Disorders - Nephrostomy tube placement Denies: Hx Dialysis, Hx Renal Disease - RIGHT SIDE NEPHROSTOMY TUBE. 2019 Musculoskeletal History: Reports: Hx Back Problems - piece of tailbone removed Denies: Hx Arthritis, Hx Rheumatoid Arthritis Sensory History: Reports: Hx Cataracts - left eye, Hx Contacts or Glasses Denies: Hx Hearing Aid Opthamlomology History: Reports: Hx Cataracts - left eye, Hx Contacts or Glasses Neurological History: Reports: Hx Headaches - IN THE PAST Psychiatric History: Denies: Hx Panic Disorder - Cancer History Cancer Type, Location and Year: COLON Hx Chemotherapy: Yes Hx Radiation Therapy: Yes - November 2016 - Surgical History Surgery Procedure, Year, and Place: tubal ligation 33 yrs ago. carpal tunnel 30 yrs ago. Colectomy w/colostomy (2014). Colon CA removal- and portion of tailbone and tissue (02/11/17). Right sided nephrostomy Hx Anesthesia Reactions: No - Immunization History Date of Influenza Vaccine: none Infectious Disease History: No Infectious Disease History: Denies: Traveled Outside the [place] in Last 30 Days - Family History Known Family History: Positive: Unknown - The pt denies fhx. , Non-Contributory Negative: Renal Disease - Social History Alcohol Use: None Hx Substance Use: No Substance Use Type: Reports: None Hx Tobacco Use: No Smoking Status (MU): Never Smoked Tobacco Have You Smoked in the Last Year: No Review of Systems Constitutional: Negative Eyes: Negative ENT: Negative Cardiovascular: Negative Respiratory: Negative Positive: Abdominal Pain, Vomiting, Nausea. Negative: Diarrhea Genitourinary: Negative Musculoskeletal: Negative Skin: Negative Neurological/Mental Status: Negative Psychological: Normal All Other Systems Reviewed And Are Negative: Yes Physical Exam - Summary Physical Exam Summary: Patient is in no acute distress. Inspection of the abdomen reveals significant protrusion on the left lower abdomen near the colostomy. No evidence of secondary infection. Abdomen is rigid with palpation however only mildly tender near this mass. Normoactive bowel sounds. No evidence of gas in colostomy bag. Triage Information Reviewed: Yes Vital Signs On Initial Exam: Initial Vitals Temp Pulse Resp BP Pulse Ox 97.9 F 77 20 126/93 100 08/03/19 10:28 08/03/19 10:28 08/03/19 10:28 08/03/19 10:28 08/03/19 10:28 Vital Signs Reviewed: Yes Appearance: Positive: Well-Appearing, No Pain Distress, Well-Nourished Skin: Positive: Warm, Skin Color Reflects Adequate Perfusion Eyes: Positive: EOMI, LYNETTE ENT: Positive: Hearing grossly normal Respiratory/Lung Sounds: Positive: Clear to Auscultation, Breath Sounds Present Cardiovascular: Positive: RRR, S1, S2 Abdomen Description: Positive: Soft. Negative: Nontender, Distended, Guarding, McBurney's Point Tenderness Bowel Sounds: Positive: Present Musculoskeletal: Positive: Strength/ROM Intact Neurological: Positive: Sensory/Motor Intact, Alert, Oriented to Person Place, Time, Normal Gait, Facial Symmetry, Speech Normal Psychiatric: Positive: Normal, Affect/Mood Appropriate AVPU Assessment: Alert Procedures - Sedation Patient Received Moderate/Deep Sedation with Procedure: No Diagnostics - Vital Signs Vital Signs Temp Pulse Resp BP Pulse Ox 08/03/19 10:28 97.9 F 77 20 126/93 100 - Laboratory Result Diagrams: 08/03/19 12:30 08/03/19 12:30 Lab Statement: Any lab studies that have been ordered have been reviewed, and results considered in the medical decision making process. Abdominal Pain Fem Course/Dx - Course Course Of Treatment: Patient was evaluated in the emergency department today for abdominal pain with a blocked colostomy bag. Vitals noted and stable. Patient afebrile.Laboratory studies returned showing no leukocytosis with white blood cell count of 8.3. CRP mildly elevated at 10.5. Microcytic anemia is noted however that the patients baseline. H&H 12.2/36. There are no significant electrolyte disturbances. Urinalysis was not suggestive of UTI. CT the abdomen and pelvis with contrast shows new compared to the June 01, 2019 exam there is gross complete small bowel obstruction due to the left lower quadrant parastomal hernia. Stable appearance of previously described hypodense hepatic lesions compared with June 01, 2019 exam. The larger lesion is increased compared to the more remote exam of June 01, 2017. Negative new liver lesions. Stable nonspecific soft tissue thickening anterior to the sacrum and contiguous postsurgical change/osteoporosis is at the sacrum and coccyx compared to the June 01, 2017 exam. Patient was given Zofran and morphine for pain and nausea. Surgery, Dr. Oliver was consulted who suggested placing an NG tube and agreed to see the patient for admission. Patient admitted to [facility] for small bowel obstruction. - Diagnoses Differential Diagnosis: Positive: Appendicitis, Bowel Obstruction Provider Diagnoses: Small bowel obstruction - Provider Notifications Discussed Care Of Patient With: Bebo Oliver - agreed to admit patient for small bowel obstruction. Suggested placement of NG tube. Instructed by Provider To: Admit As Inpatient Discharge ED - Sign-Out/Discharge Documenting (check all that apply): Patient Departure - Discharge Plan Condition: Stable Disposition: ADMITTED TO [facility] Referrals: Herman Cortes JR, PA [Primary Care Provider] - - Billing Disposition and Condition Condition: STABLE Disposition: Admitted to [facility]
[2019-08-03] MEDS ORDERED: NS 0.9% 1000 ML** 1,000 ML IV ONE ×2 (11:22→14:18)
[2019-08-03] MEDS ORDERED: Morphine 4 MG/ML VIAL (1 ml) 4 MG/ML VIAL IV ONE ×2 (11:28→14:22)
[2019-08-03] MEDS ORDERED: Ondansetron INJ* 2 MG/ML VIAL IV ONE ×2 (11:28→14:22)
[2019-08-03 12:25] LABS: Urine Appearance Cloudy; Urine Bilirubin Negative (Negative); Urine Blood Negative (Negative); Urine Color Yellow; Urine Glucose Negative (Negative); Urine Ketones 2+ (Negative); Urine Nitrite Negative (Negative); Urine Protein Negative (Negative); Urine Specific Gravity 1.014 (1.010-1.030); Urine Urobilinogen Negative (Negative)
[2019-08-03 12:45] LABS: ABS Basophils 0.1 10^3/ul (0-0.2); ABS Monocytes 0.7 10^3/ul (0-0.8); ABS Neutrophils 6.5 10^3/ul (1.5-7.7); Eosinophil % 0.2 %; Hematocrit 36 % (35-47); Hemoglobin 12.2 g/dL (12.0-16.0); Lymphocyte % 11.9 %; Mean Corpuscular HGB Conc 34 g/dL (31-36); Mean Corpuscular Hemoglobin 25 pg (27-31); Mean Corpuscular Volume 74 fL (80-97); Mean Platelet Volume 8.2 fL (7.4-10.4); Platelet Count 331 10^3/uL (150-450); Red Blood Count 4.94 10^6 /uL (3.70-4.87); Red Cell Distribution Width 18 % (10-15); White Blood Count 8.3 10^3/uL (3.5-10.8)
[2019-08-03 12:45] LABS: Urine Bacteria Absent (Absent); Urine Red Blood Cell Absent (Absent); Urine White Blood Cell Trace(0-5/hpf) (Absent)
[2019-08-03 12:50] LABS: Activated Partial Thrombo Time 35.9 seconds (26.0-38.0); INR 1.23 (0.82-1.09)
[2019-08-03 12:58] LABS: Albumin/Globulin Ratio 1.2 (1-3); BUN/Creatinine Ratio 17.6 (8-20); C Reactive Protein 10.53 mg/L (<8.01); Calcium 9.8 mg/dL (8.6-10.3); EGFR African American 106.8 (>60); EGFR Non-African American 88.3 (>60); Globulin 3.3 g/dL (2-4); Magnesium 2.1 mg/dL (1.9-2.7); Potassium 3.3 mmol/L (3.5-5.0); Total Bilirubin 1.4 mg/dL (0.2-1.0); Total Protein 7.3 g/dL (6.4-8.9)
[2019-08-03] MEDS ORDERED: Iodixanol* (CONTRAST) 320 MG/ML 100 ML SDV IV ONE (13:39)
[2019-08-03] MEDS ORDERED: Acetaminophen TAB* 325 MG PO PRN (17:08)
[2019-08-03] MEDS ORDERED: Ondansetron INJ* 2 MG/ML VIAL IV PRN (17:08)
[2019-08-03] MEDS ORDERED: NS 0.9% 1000 ML** 1,000 ML IV SCH (17:15)
[2019-08-03 18:16] LABS: ABS Lymphocytes 1.1 10^3/ul (1.0-4.8); ABS Neutrophils 6.3 10^3/ul (1.5-7.7); Eosinophil % 0.5 %; Hematocrit 38 % (35-47); Hemoglobin 12.6 g/dL (12.0-16.0); Lymphocyte % 12.6 %; Mean Corpuscular HGB Conc 33 g/dL (31-36); Mean Corpuscular Hemoglobin 25 pg (27-31); Mean Corpuscular Volume 74 fL (80-97); Platelet Count 322 10^3/uL (150-450); Red Cell Distribution Width 18 % (10-15); White Blood Count 8.5 10^3/uL (3.5-10.8)
[2019-08-03 18:18] LABS: EGFR African American 110.5 (>60); EGFR Non-African American 91.4 (>60)
[2019-08-03] MEDS: NS 0.9% w/ 20 Meq KCL 1000 ML* 1,000 ML IV SCH (19:00)
[2019-08-03] MEDS: HYDROmorphone INJ* 0.5 MG/0.5 ML SYRINGE IV SLOW PU PRN (20:59)
--- NOTE | 2019-08-03 21:07 | HP ---
AMENDED REPORT NOW INCLUDES DESIGNATED COSIGNER CC: MARSHA Mullins; Dr. Jasper Zee; Dr. Norman Marti * ADMISSION HISTORY AND PHYSICAL: DATE OF ADMISSION: 08/03/19 ATTENDING SURGEON: Bebo Oliver MD * (DICTATED BY MARSHA YOO) CHIEF COMPLAINT: Abdominal pain, nausea, and vomiting. HISTORY OF PRESENT ILLNESS: This is a 58-year-old female with history of colorectal cancer (see surgical history below) with a longstanding parastomal hernia. This had been relatively asymptomatic until about a month ago. Over that time period, she has had intermittent symptoms of pain and nausea, which would typically resolve on their own. She was seen in the office by Dr. Marti. This pattern continued in fairly stable manner until about 4 days ago when she noted increased nausea and vomiting and decreased output from the colostomy. She did have a phone consultation with Dr. Marti yesterday who advised that she come into the ED. She felt a bit better but then felt worse again today and therefore presented to the ED here. She states that she has been unable to keep anything down and has had pain around the colostomy site. She denies fever or chills. PAST MEDICAL HISTORY: 1. Rectal cancer (status post very low anterior resection with end colostomy; she does have a very small rectal pouch). 2. She has chronic right nephrostomy, which is typically changed monthly by interventional radiology the most recent change being 1 week ago. 3. She has peripheral neuropathy affecting primarily her right lower extremity. 4. She has chronic pain related to the sacrum. PAST SURGICAL HISTORY: Include initial colectomy with end colostomy in 2013. She had an exploratory laparotomy in 2017, which included partial resection of the sacrum. The surgery was complicated with numerous postoperative seromas requiring drainage, though no problems in recent years. Those operative notes are not immediately available. Her last chemotherapy was over a year ago. Her imaging studies have shown 2 liver lesions that are relatively stable and erosive and/or postoperative changes in the sacrum. Of note, her most recent CEA level within the past month or two was the highest it has been yet at 1297. She has followed regularly by Dr. Zee. Previous surgeries also included tubal ligation and right carpal tunnel release. CURRENT MEDICATIONS: 1. Gabapentin 600 mg t.i.d. 2. MS Contin 15 mg t.i.d. 3. MiraLAX daily. DRUG ALLERGIES: PENICILLIN (unspecified childhood reaction), FLAGYL (hives), SULFA (rash, itching, and difficulty breathing). FAMILY HISTORY: Negative for bleeding or clotting disorders. SOCIAL HISTORY: The patient is . 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 She denies tobacco or alcohol use or use of other recreational drugs. REVIEW OF SYSTEMS: General: No recent constitutional symptoms or acute illnesses other than described in the HPI. She estimates that her weight is down may be 5 pounds over the past month. Cardiovascular: No history of chest pain, palpitations, or heart murmur. Respiratory: No history of asthma, chronic cough, or shortness of breath. GI: As above per HPI. No additions. : Recent right nephrostomy tube change. Decreased overall urine output in recent days secondary to limited intake. : She does note some recent vaginal drainage and thinks there is a possibility that she has a fistula, though this has not been determined definitively. Endocrine: No diabetes or thyroid dysfunction. Neuro/Psych: Chronic pain and peripheral neuropathy as noted above. PHYSICAL EXAMINATION GENERAL: Well-nourished, somewhat obese female, in no acute distress, though she appears uncomfortable holding her NG tube in front of her. This has not appeared to be draining and view of the portable plain film it appears to be above the GE junction. Therefore, the nurse was asked to advance it another 15 cm, which did result in immediate and steady drainage of lightly bile colored fluid (approximately 900 cc during my presence). VITAL SIGNS: Height 5 feet 5 inches, weight 175 pounds, temperature 99.8, blood pressure 150/94, pulse 74, respirations 16 to 20, room air saturation 97%. HEENT: Mucous membranes are dry. No obvious curling of the NG tube in the posterior pharynx. NECK: No lymphadenopathy, thyromegaly or masses. LUNGS: Clear to auscultation. No rales or wheezes. HEART: Regular rate and rhythm. No murmur appreciated. BREASTS: Not examined. ABDOMEN: Well-healed midline incision, left-sided colostomy with opaque bag present. There is large parastomal hernia, which I did not attempt to completely reduce. Bowel sounds are present with some normal bowel sounds as well as some high pitch sounds. Abdomen for the most part is soft and nontender with tenderness essentially limited to the area around the stoma. No guarding or rigidity. No other palpable masses or organomegaly. RECTAL EXAM: Not done. There is a right-sided nephrostomy tube in place with what appears to be clear urine in the drainage bag. VAGINAL EXAM: Note done. EXTREMITIES: No significant edema or tenderness. SKIN: Warm and dry. No suspicious rashes or lesions noted. LABORATORY DATA: Of note, white blood cell count 8300, hemoglobin 12.2 consistent with previous with chronic microcytic indices. INR 1.23. Potassium 3.3, chloride 97, total bilirubin 1.4, alkaline phosphatase 120, other liver function tests are normal. CRP 10.5. CT of the abdomen and pelvis with IV contrast only was personally reviewed. This shows gallstones but without any other acute changes; two liver lesions ( see report); small fat-containing umbilical hernia and large left-sided parastomal hernia with dilated small bowel loops. These loops continue into the abdomen proper measuring up to 3.8 cm. There is no evidence of abscess or significant free fluid. IMPRESSION: Small bowel obstruction. PLAN: Admission, NG tube drainage, bowel rest, IV fluids with electrolyte replacement, repeat labs in the morning as well as serial abdominal exams and plain film of the abdomen in the morning. Case was discussed with Dr. Oliver who will see the patient in the morning. MARSHA YOO [id number]/[facility] #: [id number] [facility]ICAL CENTERChrist
[2019-08-03] MEDS: Heparin VIAL(*) 5000 UNITS/ML VIAL (FIVE THOUSAND) SUBCUT SCH (22:44)
[2019-08-04] MEDS: HYDROmorphone INJ1* 1 MG/ML SYRINGE IV SLOW PU PRN ×6 (00:44→20:36)
[2019-08-04] MEDS: NS 0.9% w/ 20 Meq KCL 1000 ML* 1,000 ML IV SCH ×2 (01:39→10:25)
[2019-08-04] MEDS: Heparin VIAL(*) 5000 UNITS/ML VIAL (FIVE THOUSAND) SUBCUT SCH ×3 (05:26→21:56)
[2019-08-04 05:37] LABS: ABS Eosinophils 0.1 10^3/ul (0-0.6); ABS Lymphocytes 1.4 10^3/ul (1.0-4.8); ABS Monocytes 0.9 10^3/ul (0-0.8); ABS Neutrophils 4.8 10^3/ul (1.5-7.7); Eosinophil % 1.9 %; Hematocrit 35 % (35-47); Hemoglobin 11.6 g/dL (12.0-16.0); Lymphocyte % 19.5 %; Mean Corpuscular HGB Conc 33 g/dL (31-36); Mean Corpuscular Hemoglobin 25 pg (27-31); Mean Corpuscular Volume 74 fL (80-97); Mean Platelet Volume 8.1 fL (7.4-10.4); Platelet Count 329 10^3/uL (150-450); Red Blood Count 4.73 10^6 /uL (3.70-4.87); Red Cell Distribution Width 18 % (10-15); White Blood Count 7.3 10^3/uL (3.5-10.8)
[2019-08-04 05:51] LABS: BUN/Creatinine Ratio 13.8 (8-20); Calcium 8.8 mg/dL (8.6-10.3); EGFR African American 128.3 (>60)
--- NOTE | 2019-08-04 10:25 | PN ---
Progress Note - Progress Note Date of Service: 08/04/19 SOAP: Subjective: []Long standing abdominal pain that progressed over several days and then developed nausea of bilious fluid. Presented to ER and admission with SBO. She has NGT placed with improved symptoms. Decreased output from colostomy but still small amount. PMHx: Recurrent rectal cancer with likely peritoneal disease. 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 She had been on hospice but the discharged after prolonged stability. Last 2 months characterized by progressive abd pain and rising CEA. Acetaminophen (Tylenol Tab*) 650 mg PO Q4H PRN PRN Reason: mild pain or fever Heparin Sodium (Porcine) (Heparin Vial(*)) 5,000 units SUBCUT Q8HR DENNIS Last Admin: 08/04/19 05:26 Dose: 5,000 units Hydromorphone HCl (Dilaudid Inj1s*) 1 mg IV SLOW PU Q3H PRN PRN Reason: severe pain Last Admin: 08/04/19 08:35 Dose: 1 mg Hydromorphone HCl (Dilaudid Inj*) 0.5 mg IV SLOW PU Q3H PRN PRN Reason: moderate pain Last Admin: 08/03/19 20:59 Dose: 0.5 mg Potassium Chloride/Sodium Chloride (Ns 0.9% W/ 20 Meq Kcl 1000 Ml*) 1,000 mls @ 150 mls/hr IV PER [facility] Last Admin: 08/04/19 01:39 Dose: 150 mls/hr Ondansetron HCl (Zofran Inj*) 4 mg IV Q6H PRN PRN Reason: NAUSEA/VOMITING Objective: [] Vital Signs Temp Pulse Resp BP Pulse Ox 97.9 F 76 16 135/78 99 08/04/19 07:38 08/04/19 07:38 08/04/19 08:35 08/04/19 07:38 08/04/19 07:38 HEENT: Pale, OM moist NGT billious fluid CTA RRR S1S2 +BS, mild distention, tender Ostomy bag just empties, no gas CT scan. She has teetee-ostomy hernia that appears to be causing obstruction. No clear peritoneal lesions, mass. She has sacral mass, erosion that is unchanged from prior scan in May. Sacral mass unchanged from May. Assessment: []58 year old with progressive, recurrent rectal cancer. She is managed with supportive care and has decided against chemotherapy. Increased abdominal pain and distension over past 2 months, presents today with SBO at teetee-ostomy hernia. Discussed that I suspect she has increased peritoneal disease causing SBO. I will talk to surgery to see if hernia can be reduced manually. She is a poor surgical candidate but a palliative procedure is reasonable, has had multiple abdominal surgeries in the past including pelvic exoneration. We also discussed conservative management and if obstruction cannot be resolved, venting G tube and hospice. Plan: []1. Will discuss case with surgery. 2. IVF and G-tube for time being, follow ostomy output. 3. Pain managed with hydromorphone at this time. 4. FEN. Continue IVF, replete K and check Mg 5. Will discuss code status on follow up, appropriate for DNR.
[2019-08-04] MEDS ORDERED: POTASSIUM CHLORIDE TPN IVPB SCH ×2 (11:00)
[2019-08-04] MEDS ORDERED: Lactated Ringers 1000 ML Bag* 1,000 ML IV SCH (11:00)
[2019-08-04] MEDS ORDERED: LACTATED RINGERS IVPB SCH ×2 (11:00)
--- NOTE | 2019-08-04 11:10 | PN ---
Progress Note - Progress Note Date of Service: 08/04/19 SOAP: Subjective: Still has pain and taking meds with relief. Scant o/p from ostomy. No N/V/ flatus. Back from AXR. Objective: Vital Signs Temp 97.9 F 08/04/19 07:38 Pulse 76 08/04/19 07:38 Resp 16 08/04/19 10:21 BP 135/78 08/04/19 07:38 Pulse Ox 99 08/04/19 07:38 Gen: NAD Abd: softly distended; ostomy without fct; mildly tender; hernia feels reducible. Intake & Output 08/03/19 08/04/19 08/04/19 18:59 06:59 18:59 Intake Total 2000 980 0 Output Total 1500 2150 300 Balance 500 -1170 -300 Weight 175 lb 175 lb Intake: IV Fluids 1999 980 NS (0.9%) 20 meq KCL 980 Oral 0 Output: NG Tube Drainage Amount 1500 850 Urine 750 Nephrostomy #1 300 300 Nephrostomy #2 250 Laboratory Results - last 24 hr 08/03/19 08/03/19 08/03/19 12:17 12:30 12:30 WBC 8.3 RBC 4.94 H Hgb 12.2 Hct 36 MCV 74 L MCH 25 L MCHC 34 RDW 18 H Plt Count 331 MPV 8.2 Neut % (Auto) 78.4 Lymph % (Auto) 11.9 [place] % (Auto) 8.3 Eos % (Auto) 0.2 Baso % (Auto) 1.2 Absolute Neuts (auto) 6.5 Absolute Lymphs (auto) 1.0 Absolute Monos (auto) 0.7 Absolute Eos (auto) 0.0 Absolute Basos (auto) 0.1 Absolute Nucleated RBC 0.0 Nucleated RBC % 0.0 INR (Anticoag Therapy) 1.23 H APTT 35.9 Sodium Potassium Chloride Carbon Dioxide Anion Gap BUN Creatinine Est GFR ( Amer) Est GFR (Non-Af Amer) BUN/Creatinine Ratio Glucose Lactic Acid Calcium Magnesium Total Bilirubin AST ALT Alkaline Phosphatase C-Reactive Protein Total Protein Albumin Globulin Albumin/Globulin Ratio Lipase Urine Color Yellow Urine Appearance Cloudy Urine pH 6.0 Ur Specific [place] 1.014 Urine Protein Negative Urine Ketones 2+ A Urine Blood Negative Urine Nitrate Negative Urine Bilirubin Negative Urine Urobilinogen Negative Ur Leukocyte Esterase Trace A Urine WBC (Auto) Trace(0-5/hpf) Urine RBC (Auto) Absent Amorphous Crystals Present A Urine Bacteria Absent Hyaline Casts Present A Urine Glucose Negative 08/03/19 08/03/19 08/03/19 12:30 12:30 17:53 WBC 8.5 RBC 5.10 H Hgb 12.6 Hct 38 MCV 74 L MCH 25 L MCHC 33 RDW 18 H Plt Count 322 MPV 8.0 Neut % (Auto) 74.4 Lymph % (Auto) 12.6 [place] % (Auto) 12.0 Eos % (Auto) 0.5 Baso % (Auto) 0.5 Absolute Neuts (auto) 6.3 Absolute Lymphs (auto) 1.1 Absolute Monos (auto) 1.0 H Absolute Eos (auto) 0.0 Absolute Basos (auto) 0.0 Absolute Nucleated RBC 0.0 Nucleated RBC % 0.0 INR (Anticoag Therapy) APTT Sodium 135 Potassium 3.3 L Chloride 97 L Carbon Dioxide 25 Anion Gap 13 H BUN 12 Creatinine 0.68 Est GFR ( Amer) 106.8 Est GFR (Non-Af Amer) 88.3 BUN/Creatinine Ratio 17.6 Glucose 98 Lactic Acid 1.1 Calcium 9.8 Magnesium 2.1 Total Bilirubin 1.40 H AST 16 ALT 11 Alkaline Phosphatase 120 H C-Reactive Protein 10.53 H Total Protein 7.3 Albumin 4.0 Globulin 3.3 Albumin/Globulin Ratio 1.2 Lipase 17 Urine Color Urine Appearance Urine pH Ur Specific [place] Urine Protein Urine Ketones Urine Blood Urine Nitrate Urine Bilirubin Urine Urobilinogen Ur Leukocyte Esterase Urine WBC (Auto) Urine RBC (Auto) Amorphous Crystals Urine Bacteria Hyaline Casts Urine Glucose 08/03/19 08/04/19 08/04/19 17:53 05:23 05:23 WBC 7.3 RBC 4.73 Hgb 11.6 L Hct 35 MCV 74 L MCH 25 L MCHC 33 RDW 18 H Plt Count 329 MPV 8.1 Neut % (Auto) 66.3 Lymph % (Auto) 19.5 [place] % (Auto) 11.9 Eos % (Auto) 1.9 Baso % (Auto) 0.4 Absolute Neuts (auto) 4.8 Absolute Lymphs (auto) 1.4 Absolute Monos (auto) 0.9 H Absolute Eos (auto) 0.1 Absolute Basos (auto) 0.0 Absolute Nucleated RBC 0.0 Nucleated RBC % 0.0 INR (Anticoag Therapy) APTT Sodium 137 Potassium 3.0 L Chloride 103 Carbon Dioxide 23 Anion Gap 11 BUN 10 8 Creatinine 0.66 0.58 Est GFR ( Amer) 110.5 128.3 Est GFR (Non-Af Amer) 91.4 106.0 BUN/Creatinine Ratio 13.8 Glucose 73 Lactic Acid Calcium 8.8 Magnesium Total Bilirubin AST ALT Alkaline Phosphatase C-Reactive Protein Total Protein Albumin Globulin Albumin/Globulin Ratio Lipase Urine Color Urine Appearance Urine pH Ur Specific [place] Urine Protein Urine Ketones Urine Blood Urine Nitrate Urine Bilirubin Urine Urobilinogen Ur Leukocyte Esterase Urine WBC (Auto) Urine RBC (Auto) Amorphous Crystals Urine Bacteria Hyaline Casts Urine Glucose Assessment: SBO due to adhesions/peritoneal disease(?) as hernia feel reducible. She is s/ p LAR for rectal ca, then recurrence s/p pelvic exenteration, know recurrence with metastatic disease. She has a benign abdominal exam and does not require emergent/urgent surgery. Plan: Cont NGT; IVF; serial AXR. If fails to improve then will need to discuss surgery. Options briefly discussed with patient and that findings at surgery would determine procedure. As per Dr. Zee this would be palliative at best. He has agreed to accept pt to his service.
[2019-08-04] MEDS: KCL 10 MEQ/50 ML IVPREMIX* 10 MEQ/50 ML BAG IV SCH ×4 (11:18→14:51)
[2019-08-04] MEDS: NS 0.9% w/ 40 Meq KCL 1000 ML* 1,000 ML IV SCH ×2 (12:32→21:19)
[2019-08-04] MEDS ORDERED: LORazepam INJ* 2 MG/ML 1 ML VIAL IV PUSH ONE (20:54)
[2019-08-04] MEDS ORDERED: Lorazepam PYXIS KEY PRN (20:54)
[2019-08-05] MEDS: HYDROmorphone INJ1* 1 MG/ML SYRINGE IV SLOW PU PRN ×4 (02:24→23:55)
[2019-08-05 06:00] LABS: ABS Lymphocytes 1.4 10^3/ul (1.0-4.8); ABS Monocytes 0.8 10^3/ul (0-0.8); ABS Neutrophils 7.3 10^3/ul (1.5-7.7); Eosinophil % 0.3 %; Hematocrit 38 % (35-47); Hemoglobin 12.7 g/dL (12.0-16.0); Lymphocyte % 14.9 %; Mean Corpuscular HGB Conc 33 g/dL (31-36); Mean Corpuscular Hemoglobin 24 pg (27-31); Mean Corpuscular Volume 73 fL (80-97); Mean Platelet Volume 8.3 fL (7.4-10.4); Nucleated Red Blood Cells % 0.1; Platelet Count 406 10^3/uL (150-450); Red Blood Count 5.22 10^6 /uL (3.70-4.87); Red Cell Distribution Width 19 % (10-15); White Blood Count 9.6 10^3/uL (3.5-10.8)
[2019-08-05] MEDS: Heparin VIAL(*) 5000 UNITS/ML VIAL (FIVE THOUSAND) SUBCUT SCH ×3 (06:02→22:37)
[2019-08-05] MEDS: NS 0.9% w/ 40 Meq KCL 1000 ML* 1,000 ML IV SCH ×2 (06:02→17:39)
[2019-08-05 06:12] LABS: Albumin 3.6 g/dL (3.2-5.2); Albumin/Globulin Ratio 1.1 (1-3); Calcium 9.2 mg/dL (8.6-10.3); EGFR African American 123.4 (>60); Globulin 3.4 g/dL (2-4); Magnesium 1.8 mg/dL (1.9-2.7); Potassium 3.6 mmol/L (3.5-5.0); Total Bilirubin 1.3 mg/dL (0.2-1.0)
[2019-08-05] MEDS: HYDROmorphone INJ* 0.5 MG/0.5 ML SYRINGE IV SLOW PU PRN ×2 (08:02→17:38)
--- NOTE | 2019-08-05 11:10 | PN ---
Progress Note - Progress Note Date of Service: 08/05/19 SOAP: Subjective: She reports large o/p of gas from colostomy starting last night. Pain is improved. No N/V. NGT currently clamped. Objective: Vital Signs Temp 98.7 F 08/05/19 07:40 Pulse 81 08/05/19 07:40 Resp 16 08/05/19 08:16 BP 158/96 08/05/19 07:40 Pulse Ox 100 08/05/19 07:40 Gen: NAD Abd: +BS; soft; ND; NT; reducible hernia. Intake & Output 08/04/19 08/05/19 08/05/19 18:59 06:59 18:59 Intake Total 50 1397 Output Total 1999 4975 225 Balance -1949 -1203 473 Intake: IV Fluids 1157 NS (0.9%) 40 meq KCL 1157 IVPB 50 NS (0.9%) 20 meq KCL 50 Oral 0 240 Output: NG Tube Drainage Amount 400 1100 Urine 500 650 150 Nephrostomy #1 300 625 75 Nephrostomy #2 500 Colostomy 300 490 Other: Estimated Void Small Estimated Stool Amount Medium AXR improved. Assessment: Resolving SBO due to adhesions/peritoneal disease(?) as hernia feel reducible. She is s/p LAR for rectal ca, then recurrence s/p pelvic exenteration, know recurrence with metastatic disease. Plan: Can likely d/c NGT and slowly advance. Patient instructed in method for reducing the hernia and demonstrated ability to do so. Recommend Stoma Therapist consult for Hernia belt prior to discharge (tomorrow?)
[2019-08-05] MEDS ORDERED: Magnesium Sulfate 1 GM IV* 1 GM/100 ML BAG IV ONE (14:10)
--- NOTE | 2019-08-05 14:11 | PN ---
Subjective Date of Service: 08/05/19 Interval History: Pt has had no vomiting, has stool in her colostomy bag Objective Active Medications: Acetaminophen (Tylenol Tab*) 650 mg PO Q4H PRN PRN Reason: mild pain or fever Heparin Sodium (Porcine) (Heparin Vial(*)) 5,000 units SUBCUT Q8HR DENNIS Last Admin: 08/05/19 06:02 Dose: 5,000 units Hydromorphone HCl (Dilaudid Inj1s*) 1 mg IV SLOW PU Q3H PRN PRN Reason: severe pain Last Admin: 08/05/19 11:58 Dose: 1 mg Hydromorphone HCl (Dilaudid Inj*) 0.5 mg IV SLOW PU Q3H PRN PRN Reason: moderate pain Last Admin: 08/05/19 08:02 Dose: 0.5 mg Potassium Chloride/Sodium Chloride (Ns 0.9% W/ 40 Meq Kcl 1000 Ml*) 1,000 mls @ 75 mls/hr IV PER RATE [facility] Miscellaneous (Ativan Pyxis Luna) 1 ea N/A .ATIVAN IV LUNA PRN PRN Reason: PYXIS LUNA Ondansetron HCl (Zofran Inj*) 4 mg IV Q6H PRN PRN Reason: NAUSEA/VOMITING Vital Signs - 8 hr 08/05/19 08/05/19 08/05/19 07:40 08:02 08:16 Temperature 98.7 F Pulse Rate 81 Respiratory 16 16 16 Rate Blood Pressure 158/96 (mmHg) O2 Sat by Pulse 100 Oximetry 08/05/19 08/05/19 11:47 11:58 Temperature 98.4 F Pulse Rate 79 Respiratory 18 18 Rate Blood Pressure 130/113 (mmHg) O2 Sat by Pulse Oximetry Oxygen Devices in Use Now: None Appearance: 58 yo f in nAD, aAOx3 Eyes: No Scleral Icterus Ears/Nose/Mouth/Throat: NL Teeth, Lips, Gums, Mucous Membranes Moist Neck: NL Appearance and Movements; NL JVP, Trachea Midline Respiratory: Symmetrical Chest Expansion and Respiratory Effort, Clear to Auscultation Cardiovascular: NL Sounds; No Murmurs; No JVD, RRR Abdominal: NL Sounds; No Tenderness; No Distention, - - colostomy bag with loose stool noted Lymphatic: No Cervical Adenopathy Extremities: No Edema Skin: No Rash or Ulcers Neurological: Alert and Oriented x 3, NL Muscle Strength and Tone Result Diagrams: 08/05/19 04:36 08/05/19 04:36 Microbiology and Other Data: Microbiology 08/03/19 12:17 Urine Culture - Final Urine Assess/Plan/Problems-Billing Assessment: 58 year old with progressive, recurrent rectal cancer. She is managed with supportive care and has decided against chemotherapy. Increased abdominal pain and distension over past 2 months, presents today with SBO at [facility]-ostomy hernia. Suspected she has increased peritoneal disease causing SBO. Hernia can be reduced manually. She is a poor surgical candidate but a palliative procedure is reasonable, has had multiple abdominal surgeries in the past including pelvic exenteration. Plan: 1. SBO: resolving. Appreciate surgery's input-NG to be discontinued, start clears, lower IVF 2. Pain managed with hydromorphone at this time. 3. FEN. Continue IVF 4. Code status needs to be addressed on follow up, appropriate for DNR.
[2019-08-06] MEDS: HYDROmorphone INJ1* 1 MG/ML SYRINGE IV SLOW PU PRN ×2 (03:51→08:53)
[2019-08-06 05:30] LABS: ABS Basophils 0.1 10^3/ul (0-0.2); ABS Eosinophils 0.1 10^3/ul (0-0.6); ABS Lymphocytes 1.4 10^3/ul (1.0-4.8); ABS Monocytes 1.1 10^3/ul (0-0.8); ABS Neutrophils 8.1 10^3/ul (1.5-7.7); Eosinophil % 0.5 %; Hematocrit 38 % (35-47); Hemoglobin 12.6 g/dL (12.0-16.0); Lymphocyte % 13.3 %; Mean Corpuscular HGB Conc 33 g/dL (31-36); Mean Corpuscular Hemoglobin 24 pg (27-31); Mean Corpuscular Volume 74 fL (80-97); Mean Platelet Volume 8.1 fL (7.4-10.4); Platelet Count 389 10^3/uL (150-450); Red Blood Count 5.15 10^6 /uL (3.70-4.87); Red Cell Distribution Width 19 % (10-15); White Blood Count 10.8 10^3/uL (3.5-10.8)
[2019-08-06] MEDS: Heparin VIAL(*) 5000 UNITS/ML VIAL (FIVE THOUSAND) SUBCUT SCH (06:52)
[2019-08-06] MEDS: NS 0.9% w/ 40 Meq KCL 1000 ML* 1,000 ML IV SCH (07:08)
[2019-08-06] MEDS ORDERED: Magnesium Sulfate IV* 3 GM in NS 0.9% 100 ML* 100 ML IVPB ONE (10:04)
--- NOTE | 2019-08-06 11:30 | DS ---
DISCHARGE SUMMARY: DATE OF ADMISSION: 08/03/19 DATE OF DISCHARGE: 08/06/19 DISCHARGE DIAGNOSES: 1. small bowel obstruction 2. Metastatic rectal cancer. HOSPITAL COURSE: Ms. Gonzáles is a 58-year-old female with longstanding metastatic rectal cancer, who is not on therapy. She has been in the hospice for prolonged period of time, but then came off hospice for a stable disease. Over the past 2 months, she has had progression, increase in CEA, increasing abdominal pain, and increasing difficulty with bowel movements. She presented with essentially small bowel obstruction. CT scan showed obstruction and a parastomal hernia with dilated loops of bowel. She is managed conservatively and Surgery was consulted. On day #1 of admission, her symptoms improved, increased colostomy output, and decreasing abdominal pain. Yesterday, she was eating well throughout the day. Her labs have been relatively stable through the admission. She has mild hypokalemia and today, her magnesium has decreased slightly. We have had extensive discussions about her progressive disease. I think the obstruction is from peritoneal spread. She is open to reenrolling in hospice. She still only has some hope that the bowel obstruction is from the medication and not her cancer. Given that she feels better, she will be discharged home today and will follow up at the end of the week at my [place] office to talk about hospice further then. PHYSICAL EXAM ON DISCHARGE: Temperature 98.0, BP 147/89, pulse 72, respirations 16. HEENT: Conjunctivae pale. Mucosa moist. No lesions. Lungs: Clear to auscultation. Heart: Regular rhythm. S1, S2. No murmurs or gallops. Abdomen : She has got the colostomy. She has got a large abdominal hernia. It is generally nontender. She has good bowel sounds and some mild distention, close to baseline exam. Extremities: Trace edema in lower extremities. Neurologic: Alert and oriented x3 and nonfocal. LABORATORY DATA: Labs on discharge included magnesium of 1.8. MEDICATIONS ON DISCHARGE: 1. Gabapentin 300 mg t.i.d. 2. MS Contin 100 mg b.i.d. 3. MiraLAX q.8 p.r.n. 4. Senna 1 tablet at bedtime p.r.n. 5. Liquid morphine 20 mg q.4 p.r.n. Additional medications on discharge: Celebrex 100 mg p.o. b.i.d. PENDING STUDIES: None. DISPOSITION: Discharged to home. CONDITION: Good. FOLLOWUP: Follow up in 4 days in clinic. [id number]/[facility] #: [id number] MTDD
--- NOTE | 2019-08-06 11:37 | PN ---
Progress Note - Progress Note Date of Service: 08/06/19 Note: Surgery Progress: S: NG out since yesterday afternoon. No N/V or abd pain. She has passed a " large amount" of flatus per her colostomy and some stool. She's been tolerating clear liquids. She was told by Dr. Zee that he was going to advance her diet and d/c her this afternoon. O: Vital Signs - 8 hr 08/06/19 08/06/19 08/06/19 03:51 03:55 03:56 Temperature 97.9 F Pulse Rate 74 Respiratory 20 20 20 Rate Blood Pressure 143/87 (mmHg) O2 Sat by Pulse 100 Oximetry 08/06/19 08/06/19 08/06/19 05:42 08:00 08:22 Temperature 98.0 F Pulse Rate 72 Respiratory 18 18 16 Rate Blood Pressure 147/89 (mmHg) O2 Sat by Pulse 100 Oximetry 08/06/19 08/06/19 08:53 10:04 Temperature Pulse Rate Respiratory 18 18 Rate Blood Pressure (mmHg) O2 Sat by Pulse Oximetry Intake and Output Last 24 Hours 08/04/19 08/05/19 08/06/19 08/07/19 06:59 06:59 06:59 06:59 Intake Total 2980 1447 1135 990 Output Total 3650 4865 2390 Balance -670 -7401 -1256 990 Weight 175 lb Intake: IV Fluids 2980 1157 785 990 NS (0.9%) 20 meq KCL 980 NS (0.9%) 40 meq KCL 1157 785 990 IVPB 50 100 Magnesium 100 NS (0.9%) 20 meq KCL 50 Oral 240 250 Output: NG Tube Drainage Amount 2350 1500 750 Urine 750 1150 250 Nephrostomy #1 300 925 400 Nephrostomy #2 250 500 100 Colostomy 790 840 Other 50 Other: Estimated Void Small Estimated Stool Amount Medium Other Amount Description residual Gen: sitting up in chair; appears comfortable Heart: reg Lungs:clear Abd: +BS; large, soft, nontender parastomal hernia. Colostomy bag is flat. Remainder of abdomen is likewise nontender. A: SBO, resolving P: full liquids for lunch; home per Dr. Zee if she tolerates. She understands that this may be a recurrent problem and was advised regarding diet modification and hydration needs. Surgical followup as needed.
--- NOTE | 2019-08-06 12:08 | PN ---
Progress Note - Progress Note Date of Service: 08/06/19 Note: Surgery Progress Note I saw and examined this patient today. Briefly, she is a 58 yo F with recurrent rectal ca sp LAR, then pelvic exteneration with suspected progressive peritoneal disease who was admitted for an SBO. She is feeling much better, has been tolerating a CLD and has no nausea or emeis after removal of NGT. On physical exam her colostomy is in the LLQ, somewht near the midline. There are no palpable hernias or tenderness, but her exam is somewhat limited by her habitus. She is concerned about progression of her disease and recurrence of her hernia/pain. She was shown how to reduce the hernia by Dr. Oliver yesterday. She understands that further surgical interventions are somewhat limited given her prognosis and that if she recurs, palliative procedures such as a venting gastrostomy may be in her best interest. She will try full/soft for lunch and plan for DC home today.
[2019-08-06 13:04] VITALS: BP 138/79
== END 2019-08-06 13:30 | disposition home or self-care (01) | DRG 247 ==
LOC: ED 10:26 → SSU 17:08
PROVIDERS: ADMIT Surgery; ATTEND Internal Medicine Hematology & Oncology
DX: K56.609 Unspecified intestinal obstruction, unspecified as to partial versus complete obstruction (principal); C78.6 Secondary malignant neoplasm of retroperitoneum and peritoneum; C19 Malignant neoplasm of rectosigmoid junction; K43.5 Parastomal hernia without obstruction or gangrene; E87.6 Hypokalemia; G62.9 Polyneuropathy, unspecified; G89.29 Other chronic pain; K76.9 Liver disease, unspecified; E66.9 Obesity, unspecified; Z93.3 Colostomy status; Z93.6 Other artificial openings of urinary tract status; Z79.891 Long term (current) use of opiate analgesic; Z79.899 Other long term (current) drug therapy; Z88.0 Allergy status to penicillin; Z88.2 Allergy status to sulfonamides; Z68.29 Body mass index [BMI] 29.0-29.9, adult
CPT/HCPCS: 36415; 71045; 74019; 74177; 80048; 80053; 81003; 81015; 82565; 83605; 83690; 83735; 84520; 85025; 85610; 85730; 86140; 87086; 96374; 96375; 96376; 99233; 99238; 99284; J1170; J1644; J2060; J2270; J2405; J3475; J3480; Q9967

== ENCOUNTER 2019-08-30 13:53 | Observation (INO) ==
[2019-08-30] MEDS ORDERED: Ondansetron 4 mg VIAL 2 MG/ML 2 ml VIAL IV PRN (15:38)
[2019-08-30] MEDS ORDERED: NS 0.9% 1000 ml BAG 1,000 ML IV SCH (15:45)
[2019-08-30] MEDS: HYDROmorphone 1 MG/1 ML SYRINGE IV SLOW PU PRN ×2 (16:14→20:42)
[2019-08-30 20:41] VITALS: BP 97/60
[2019-08-31] MEDS ORDERED: MORPHINE 100 MG PO ONE (10:45)
== END 2019-08-31 14:30 | disposition home or self-care (01) ==
LOC: SSU 15:06
PROVIDERS: ADMIT Internal Medicine Hematology & Oncology; ATTEND Internal Medicine Hematology & Oncology